=== PATIENT | female | born 1930 | race Caucasian/White ===

== ENCOUNTER 2017-01-31 10:13 | Observation (INO) | payer MEDICARE, BC ==
[2017-01-31] MEDS: Diltiazem IR 60 MG Tab PO SCH ×3 (12:32→23:37)
[2017-01-31] MEDS: Sodium Chloride 0.9% 10 ML Syringe FLUSH PRN ×2 (13:03→21:54)
--- NOTE | 2017-01-31 13:41 | HP ---
CHIEF COMPLAINT: Tongue swelling, she noticed this morning. PAST MEDICAL HISTORY: 1. Diabetes mellitus type 2. 2. Hypothyroidism. 3. Hypertension. 4. Hyperlipidemia. 5. History of aortic stenosis, moderate by echocardiogram last year. Normal LV function. 6. New-onset atrial flutter. TSH, potassium, and magnesium normal. HISTORY OF PRESENT ILLNESS: A very pleasant, 86-year-old female, who I have been seeing in the clinic this week for atrial flutter and trying to get her rate controlled. The patient came in asymptomatic on Sunday and was noted to have a heart rate of 128. EKG was done, which was suggestive of atrial flutter. The patient was hemodynamically stable without shortness of breath. She elected to try to treat this as an outpatient. She was started on Lopressor 12.5 mg b.i.d. She came in this morning complaining of some tongue swelling that she woke up with this morning and some difficulty talking. She has noticed a little bit of swelling in lower extremities. No shortness of breath. No chest pain or tightness. She was using some cough medicine at home, which she did not use before along with a new medication of metoprolol. Her daughter apparently came over this morning and noticed that her speech was different and recommended coming in to have this looked at. CURRENT MEDICATIONS: Nifedipine ER 30 mg daily, metformin 1000 mg b.i.d., Zocor 20 mg daily, lisinopril 2.5 mg daily, levothyroxine 125 mcg daily, metoprolol 12.5 mg b.i.d., aspirin 81 mg daily, calcium with vitamin D 1 tablet b.i.d., omega-3 one capsule b.i.d., vitamin C 250 mg b.i.d., vitamin E 400 units daily. FAMILY HISTORY: Sister of lung cancer. Another sister with pancreatic cancer. SOCIAL HISTORY: She is . No significant alcohol or tobacco use. [place] REVIEW OF SYSTEMS: A 12-point review of systems is negative other than above. PHYSICAL EXAMINATION: GENERAL: A very pleasant female, no apparent distress. Her speech is understandable when I saw her. There was some mild tongue swelling, but no tonsillar swelling or uvula swelling. No adenopathy in the neck. No facial swelling. LUNGS: Clear to auscultation, without wheezes or rales. CARDIAC: Exam reveals a regular heart rate at 125. JVD is not distended. There is 1 to 2+ pedal edema bilaterally, which is new from Sunday. ABDOMEN: Benign. : Exam deferred. NEUROLOGIC: Grossly nonfocal. LABORATORY DATA: From 01/29/2017: Magnesium 2.0. CBC; white count 7.2, hemoglobin 12.9, platelet count 215,000. Sodium 143, potassium 4.2, chloride 105, bicarbonate 27, blood sugar 116, creatinine 0.96, BUN 20. LFTs and calcium were normal. Hemoglobin A1c 5.8. TSH 1.0. EKG revealed, what appears to be an atrial flutter at 126. There is no ST elevation. There are some nonspecific ST-T wave changes, which I think are flutter waves. Intervals are otherwise normal. IMPRESSION: 1. Tongue swelling, question allergy, question if secondary to her cough syrup or metoprolol. 2. Atrial flutter with rapid ventricular response, and now pedal edema. 3. Diabetes mellitus. 4. Hypothyroidism, on replacement. 5. Hypertension. PLAN: Since I am not sure whether or not her tongue swelling is due to metoprolol, I would like to admit her to the hospital for rate control and stopping metoprolol. We will stop her nifedipine and place her on Cardizem regular release 30 mg q.6 hours until heart rate is controlled. Echocardiogram has already been scheduled for today. I do not see a lot of oropharyngeal swelling currently, so we will follow this closely and she will stop her cough medication. We will continue other medications for at home. Anticipate an observation admission. BUBBA/YE
[2017-01-31] MEDS ORDERED: Furosemide 40 MG Tab PO ONE (16:38)
[2017-01-31] MEDS ORDERED: Azithromycin 250 MG Tab PO SCH (16:45)
[2017-01-31] MEDS ORDERED: METOPROLOL TARTRATE 25 MG PO SCH (20:00)
[2017-01-31] MEDS: SIMVASTATIN 20 MG PO SCH (21:51)
[2017-01-31] MEDS: METFORMIN 1000 MG PO SCH (21:51)
[2017-01-31] MEDS ORDERED: Acetaminophen 500 MG Tab PO PRN (23:48)
[2017-02-01] MEDS: Diltiazem IR 60 MG Tab PO SCH ×3 (06:08→18:26)
[2017-02-01] MEDS ORDERED: LEVOTHYROXINE 125 MCG PO SCH (07:00)
[2017-02-01] MEDS ORDERED: LISINOPRIL 2.5 MG PO SCH (08:00)
[2017-02-01] MEDS: METFORMIN 1000 MG PO SCH ×2 (08:00→20:44)
[2017-02-01] MEDS ORDERED: NIFEDIPINE 30 MG PO SCH (08:00)
[2017-02-01] MEDS ORDERED: Azithromycin 250 MG Tab PO SCH (08:30)
--- NOTE | 2017-02-01 09:41 | CR ---
DATE OF SERVICE: 01/31/17 CLINICAL DATA: fever, cough AP CHEST: Comparison is made to a prior exam dated 11/18/15. The heart is enlarged. The aorta is calcified and ectatic. The lungs are clear. No pneumothorax. No pleural effusions. No areas of consolidation. There are surgical clips in the lower neck. No significant changes from the prior exam. IMPRESSION: No evidence of acute intrathoracic disease. [id number] [facility]
[2017-02-01] MEDS ORDERED: Diltiazem IR 60 MG Tab ONE (09:52)
[2017-02-01] MEDS: SIMVASTATIN 20 MG PO SCH (20:44)
[2017-02-01] MEDS: Sodium Chloride 0.9% 10 ML Syringe FLUSH PRN (20:45)
[2017-02-02] MEDS: Diltiazem IR 60 MG Tab PO SCH ×2 (00:48→05:57)
--- NOTE | 2017-02-02 07:33 | PN ---
DATE OF VISIT: 02/01/2017 SUBJECTIVE: The patient denies any complaints this morning. She still does have a mild cough. She denies having any dizziness, lightheadedness, chest pain, or tightness. She tolerated the Cardizem well. Her tongue swelling has now resolved. Otherwise, denies any other complaints. OBJECTIVE: VITAL SIGNS: Blood pressure is 130s systolic over 80s. Pulse rate ranging anywhere from 100 to 130. T-max last night was 100.4, respirations are 16. PHARYNX: Tongue is normal in appearance. No ulcerations. No adenopathy in the neck. LUNGS: Clear to auscultation without wheezes, rales, or rhonchi. CARDIAC: Reveals a rate of 100. I do not hear gallop or rub. JVD is not distended. There is no pedal edema. ABDOMEN: Benign. Monitor shows heart rates running anywhere from 110 to 130 overnight. IMPRESSION: 1. A flutter with rapid ventricular response. 2. Bronchitis. 3. Hypothyroidism. 4. Diabetes mellitus, type 2. 5. Hypertension. PLAN: We will increase Cardizem to 60 mg q.6 hours for better rate control. I am reluctant to restart any metoprolol due to her tongue swelling and the possibility of this being the etiology, although it may be related to her cough syrup. Her tongue swelling has resolved. Waiting for results of echocardiogram. The patient's chest x-ray was normal, and white count is normal. She is on Zithromax for possible bronchitis. Plan is for her to stay overnight and will adjust Cardizem for better heart rate control, and hopefully, echocardiogram will be back in the morning. Anticipate discharge in the morning. BUBBA/YE /[id number]
[2017-02-02] MEDS ORDERED: Diltiazem 240 MG Cap.CD PO SCH ×2 (08:00→08:41)
--- NOTE | 2017-02-02 14:48 | DISCH ---
DISCHARGE DIAGNOSES: 1. Atrial flutter with rapid ventricular response. 2. Tongue swelling, felt secondary to either metoprolol or cough syrup. 3. Diabetes mellitus type 2. 4. Hypothyroidism. 5. Hypertension. 6. Hyperlipidemia. 7. Aortic stenosis, moderate by echocardiogram. PROCEDURE THIS ADMISSION: Echocardiogram. HOSPITAL COURSE: The patient was admitted from the clinic with tongue swelling and new- onset atrial flutter with rapid ventricular response. The patient had been seen in the clinic 2 days earlier and started on metoprolol for her atrial flutter and presented with tongue swelling after taking her metoprolol and also taking some cough syrup. It was not clear which one was the causative agent, but both were stopped and her tongue swelling resolved. The patient was then started on diltiazem for rate control. The patient required 60 mg of regular release Cardizem q.6 hours for rate control while at rest, but her heart rate still went up into the 120s to 130 with activity. The patient was completely asymptomatic. The patient's TSH, potassium, and magnesium were normal. The patient did not have any chest pain or anything to suggest cardiac ischemia. Her EKG did not show any ischemic changes. The patient did have a chest x-ray that was clear, but did have a cough productive of a little bit of sputum, so was empirically placed on Zithromax. The patient did well and was transitioned to Cardizem CD 300 mg daily, and blood pressure was stable. She remained in atrial flutter while hospitalized and it was felt that the etiology for her flutter was most likely a viral upper respiratory syndrome. Echocardiogram was done on admission, which revealed LV function was normal at 50% with no regional wall motion abnormality. She does have an aortic stenosis, which is moderate with a valve gradient of 19 mmHg. Left atrium was normal in size. The patient will be discharged to home with the hope that she will spontaneously convert to normal sinus rhythm. She will follow up with her primary care physician next week with an EKG and if the patient does not convert to normal sinus rhythm, consideration of long-term anticoagulation will need to be undertaken. MEDICATIONS UPON DISCHARGE: Cardizem CD 300 mg daily, Zithromax 250 mg daily for 2 days, metformin a 1000 mg b.i.d., Zocor 20 mg daily, L-thyroxine 125 mcg daily and aspirin 81 mg daily. Vitamin E supplement, calcium supplement, and fish oil supplement. The patient is up ambulating, competent to handle her own affairs and appropriate for discharge home. Follow up with Dr. Mcdonald next week with an EKG. BUBBA/YE /[id number]
[2017-02-02 16:17] VITALS: BP 124/68
[2017-02-03] MEDS ORDERED: DILTIAZEM HCL 300 MG PO SCH (08:00)
== END 2017-02-02 12:00 | disposition home or self-care (01) ==
LOC: LB.DI 10:13 → LB.MS 10:15 → UNDOADMOB 10:15 → LB.MS 10:40
PROVIDERS: ADMIT Internal Medicine; ATTEND Internal Medicine
DX: T50.905A Adverse effect of unspecified drugs, medicaments and biological substances, initial encounter (principal); R22.0 Localized swelling, mass and lump, head; J40 Bronchitis, not specified as acute or chronic; I48.92 Unspecified atrial flutter; E11.9 Type 2 diabetes mellitus without complications; Z79.84 Long term (current) use of oral hypoglycemic drugs; E03.9 Hypothyroidism, unspecified; I10 Essential (primary) hypertension; E78.5 Hyperlipidemia, unspecified; Z79.899 Other long term (current) drug therapy
CPT/HCPCS: 36415; 71010; 80048; 93306; 96374; A9270; G0378; J7050; 99217; 99219; 99224

== ENCOUNTER 2018-06-26 10:11 | Inpatient (IN) | payer MEDICARE, BC ==
[2018-06-26] MEDS ORDERED: metFORMIN 1,000 MG Tab ONE (18:15)
[2018-06-26] MEDS ORDERED: metFORMIN 1,000 MG Tab PO ONE (18:18)
[2018-06-26] MEDS ORDERED: Tuberculin, PPD 5 Units/0.1 ML 1 ML MDV IDERM ONE (20:00)
[2018-06-26] MEDS: Simvastatin 20 MG Tab PO SCH (20:12)
[2018-06-27] MEDS: traMADol 50 MG Tab PO PRN ×3 (00:18→13:23)
[2018-06-27] MEDS: Acetaminophen 500 MG Tab PO PRN ×2 (04:34→21:01)
[2018-06-27] MEDS: Levothyroxine 100 MCG Tab PO SCH (06:59)
[2018-06-27] MEDS ORDERED: LEVOTHYROXINE SODIUM 125 MCG PO SCH (07:00)
[2018-06-27] MEDS ORDERED: Calcium Carbonate/Vitamin D3 600 MG-200 Units Tab PO SCH (08:00)
[2018-06-27] MEDS ORDERED: DILTIAZEM 300 MG PO SCH (08:00)
--- NOTE | 2018-06-27 08:13 | PCM.HP ---
H&P History of Present Illness - General Date of Service: 06/26/18 Admit Problem/Dx: Admission Diagnosis/Problem Admission Diagnosis/Problem "Closed fracture of femur, distal end " Source of Information: Patient, Family - History of Present Illness Initial Comments - Free Text/Narative: This is a 87yo F here for swing bed admission secondary to a left hip fracture repair from [facility]. Patient denies any current complaints and has been increasingly mobile with a walker at this point. She denies any pain and is sensitive to narcotics as she slept 12 hours from one dose of hydrocodone. Daughters are present at bedside. Location: Reports: Lower Extremity, Left Improves with: Reports: None Worsens with: Reports: None Associated Symptoms: Reports: No Other Symptoms Left Hip Pain Score (Numeric/FACES): 2 - Related Data Allergies/Adverse Reactions: Allergies Allergy/AdvReac Type Severity Reaction Status Date / Time No Known Allergies Allergy Verified 06/26/18 15:46 Home Medications: Home Meds Ascorbic Acid [Vitamin C] 250 mg PO DAILY 06/11/15 [History] Calcium Carbonate/Vitamin D3 [Calcium 600 + D Tablet] 1 each PO DAILY 06/11/15 [ History] Levothyroxine Sodium 125 mcg PO ACBREAKFAST 06/11/15 [History] Simvastatin 20 mg PO BEDTIME 06/11/15 [History] metFORMIN [Glucophage] 1,000 mg PO BIDMEALS 06/11/15 [History] Vitamin E 400 unit PO DAILY 01/31/17 [History] Diltiazem [Cardizem CD] 300 mg PO DAILY #30 cap.cd 02/02/17 [Rx] Acetaminophen [Tylenol Extra Strength] 1,000 mg PO TID PRN 06/26/18 [History] Aspirin [Ecotrin] 325 mg PO DAILY 06/26/18 [History] Hydrocodone/Acetaminophen [Hydrocodon-Acetaminophen 5-325] 1 each PO Q6HR PRN [History] Levothyroxine 75 mcg PO ACBREAKFAST 06/26/18 [History] Lisinopril 2.5 mg PO DAILY 06/26/18 [History] traMADol [Ultram] 25 - 50 mg PO Q6H PRN 06/26/18 [History] Past Medical History HEENT History: Reports: Cataract, Impaired Vision Cardiovascular History: Reports: Afib, High Cholesterol, Hypertension Genitourinary History: Reports: None [employer] History: Reports: Other OB/BYN History: Hysterectomy Musculoskeletal History: Reports: Fracture Endocrine/Metabolic History: Reports: Diabetes, Type II, Hypothyroidism - Infectious Disease History Infectious Disease History: Reports: Chicken Pox, Measles, Mumps - Past Surgical History Cardiovascular Surgical History: Reports: None Female Surgical History: Reports: Hysterectomy Musculoskeletal Surgical History: Reports: Other (See Below) Other Musculoskeletal Surgeries/Procedures:: left hip pinning Social & Family History - Family History Family Medical History: Noncontributory - Tobacco Use Smoking Status *Q: Never Smoker - Recreational Drug Use Recreational Drug Use: No H&P Review of Systems - Review of Systems: Review Of Systems: ROS reveals no pertinent complaints other than HPI. Exam - Exam Exam: See Below - Vital Signs Vital Signs: Last Vital Signs Temp 36.6 C 06/26/18 20:00 Pulse 92 06/26/18 20:00 Resp 16 06/26/18 20:00 BP 113/68 06/26/18 20:00 Pulse Ox 96 06/26/18 20:00 Weight: 69.218 kg - Exam General: Alert, Oriented, Cooperative HEENT: PERRLA, Conjunctiva Clear, EACs Clear, EOMI Neck: Supple, Trachea Midline Lungs: Clear to Auscultation, Normal Respiratory Effort Cardiovascular: Regular Rate, Regular Rhythm GI/Abdominal Exam: Normal Bowel Sounds Back Exam: Normal Inspection Extremities: Normal Inspection Skin: Wound, Incision (healing well) Neurological: Cranial Nerves Intact - Patient Data Lab Results Last 24 hrs: Laboratory Results - last 24 hr 06/27/18 Range/Units 06:24 POC Glucose 132 H (74-110) mg/dL - Problem List (1) S/p left hip fracture SNOMED Code(s): 882846851 ICD Code: Z87.81 - PERSONAL HISTORY OF (HEALED) TRAUMATIC FRACTURE Status: Acute Priority: High Current Visit: Yes (2) Weakness SNOMED Code(s): 07039049 ICD Code: R53.1 - WEAKNESS Status: Acute Priority: High Current Visit: Yes (3) Pain management SNOMED Code(s): 010762623 ICD Code: R52 - PAIN, UNSPECIFIED Status: Acute Priority: High Current Visit: Yes Problem List Initiated/Reviewed/Updated: Yes Orders Last 24hrs: Active Orders 24 hr Category Date Time Status Admission Status [Patient Status] [ADT] Routine ADT 06/26/18 16:40 Active Wound Care [RC] ASDIRECTED Care 06/30/18 10:00 Active Consistent Carbohydrate Diet [DIET] Diet 06/27/18 Breakfast Ordered Acetaminophen [Tylenol Extra Strength] Med 06/26/18 18:54 Active 1,000 mg PO TID PRN Ascorbic Acid [Vitamin C] Med 06/27/18 08:00 Active 250 mg PO DAILY Aspirin [Ecotrin] Med 06/27/18 08:00 Active 325 mg PO DAILY Calcium Carbonate/Vitamin D3 [Calcium Carbonate/Vitamin Med 06/27/18 08:00 Active D 600 MG-200 Unit] 1 tab PO DAILY Diltiazem [Cardizem CD] Med 06/27/18 08:00 Active 120 mg PO DAILY Diltiazem [Cardizem CD] Med 06/27/18 08:00 Active 180 mg PO DAILY Docusate Sodium/Sennosides [Senna Plus] Med 06/27/18 20:00 Active 1 tab PO BEDTIME Levothyroxine [Synthroid] Med 06/27/18 07:00 Active 200 mcg PO ACBREAKFAST Lisinopril [Prinivil] Med 06/27/18 08:00 Active 2.5 mg PO DAILY Polyethylene Glycol 3350 [MiraLAX] Med 06/27/18 08:00 Active 17 gm PO DAILY Simvastatin [Zocor] Med 06/26/18 20:00 Active 20 mg PO BEDTIME Vitamin E Med 06/27/18 08:00 Active 400 units PO DAILY metFORMIN [Glucophage] Med 06/27/18 08:00 Active 1,000 mg PO BIDMEALS traMADol [Ultram] Med 06/26/18 18:54 Active 25 - 50 mg PO Q6H PRN Medication Orders Acetaminophen (Tylenol Extra Strength) 1,000 mg PO TID PRN PRN Reason: Pain Last Admin: 06/27/18 04:34 Dose: 1,000 mg Ascorbic Acid (Vitamin C) 250 mg PO DAILY [facility] Aspirin (Ecotrin) 325 mg PO DAILY [facility] Stop: 07/23/18 08:01 Calcium Carbonate (Calcium Carbonate/Vitamin D 600 Mg-200 Unit) 1 tab PO DAILY [facility] Diltiazem HCl (Cardizem Cd) 120 mg PO DAILY [facility] Diltiazem HCl (Cardizem Cd) 180 mg PO DAILY COUNT INCLUDES THE [facility] Levothyroxine Sodium (Synthroid) 200 mcg PO ACBREAKFAST COUNT INCLUDES THE [facility] Last Admin: 06/27/18 06:59 Dose: 200 mcg Lisinopril (Prinivil) 2.5 mg PO DAILY COUNT INCLUDES THE [facility] Metformin HCl (Glucophage) 1,000 mg PO BIDMEALS COUNT INCLUDES THE [facility] Polyethylene Glycol (Miralax) 17 gm PO DAILY COUNT INCLUDES THE [facility] Senna/Docusate Sodium (Senna Plus) 1 tab PO BEDTIME COUNT INCLUDES THE [facility] Simvastatin (Zocor) 20 mg PO BEDTIME COUNT INCLUDES THE [facility] Last Admin: 06/26/18 20:12 Dose: 20 mg Tramadol HCl (Ultram) 25 - 50 mg PO Q6H PRN PRN Reason: Pain Last Admin: 06/27/18 06:27 Dose: 50 mg Admin: 06/27/18 00:18 Dose: 50 mg Vitamin E (Vitamin E) 400 units PO DAILY COUNT INCLUDES THE [facility] Assessment/Plan Comment:: Patient will continue rehabilitation with PT/OT services. We will continue monitoring pain and continue current management holding hydrocodone at this time and continue with Tramadol. Continue f/u with Orthopedics as scheduled.
[2018-06-27] MEDS: Diltiazem 120 MG Cap.CD PO SCH (08:18)
[2018-06-27] MEDS: Aspirin 325 MG Tab.EC PO SCH (08:19)
[2018-06-27] MEDS: Diltiazem 180 MG Cap.CD PO SCH (08:19)
[2018-06-27] MEDS: metFORMIN 1,000 MG Tab PO SCH ×2 (08:19→17:51)
[2018-06-27] MEDS: Lisinopril 2.5 MG Tab PO SCH (08:20)
[2018-06-27] MEDS: Ascorbic Acid 500 MG Tab PO SCH (08:20)
[2018-06-27] MEDS: Polyethylene Glycol 3350 Powder 17 GM Packet PO SCH (08:21)
[2018-06-27] MEDS: VITAMIN E 100 UNIT PO SCH (13:14)
[2018-06-27] MEDS ORDERED: metFORMIN 1,000 MG Tab PO ONE (18:18)
[2018-06-27] MEDS: Simvastatin 20 MG Tab PO SCH (19:48)
[2018-06-28] MEDS: traMADol 50 MG Tab PO PRN ×2 (02:52→19:40)
[2018-06-28] MEDS: Levothyroxine 100 MCG Tab PO SCH (07:59)
[2018-06-28] MEDS: Calcium Carbonate/Vitamin D3 1500 MG-400 Units Tab PO SCH (08:00)
[2018-06-28] MEDS: Diltiazem 120 MG Cap.CD PO SCH (08:00)
[2018-06-28] MEDS: Diltiazem 180 MG Cap.CD PO SCH (08:01)
[2018-06-28] MEDS: metFORMIN 1,000 MG Tab PO SCH ×2 (08:02→17:12)
[2018-06-28] MEDS: Aspirin 325 MG Tab.EC PO SCH (08:02)
[2018-06-28] MEDS: Lisinopril 2.5 MG Tab PO SCH (08:03)
[2018-06-28] MEDS: VITAMIN E 100 UNIT PO SCH (08:04)
[2018-06-28] MEDS: Ascorbic Acid 500 MG Tab PO SCH (08:04)
[2018-06-28] MEDS: Polyethylene Glycol 3350 Powder 17 GM Packet PO SCH (08:05)
[2018-06-28] MEDS ORDERED: Calcium Carbonate 500 MG Tab.Chew ONE (09:19)
[2018-06-28] MEDS: Simvastatin 20 MG Tab PO SCH (19:40)
[2018-06-29] MEDS: traMADol 50 MG Tab PO PRN ×3 (02:29→20:22)
[2018-06-29] MEDS: Acetaminophen 500 MG Tab PO PRN ×3 (03:18→20:22)
[2018-06-29] MEDS: Calcium Carbonate/Vitamin D3 1500 MG-400 Units Tab PO SCH (08:38)
[2018-06-29] MEDS: Ascorbic Acid 500 MG Tab PO SCH (08:38)
[2018-06-29] MEDS: Lisinopril 2.5 MG Tab PO SCH (08:39)
[2018-06-29] MEDS: Levothyroxine 100 MCG Tab PO SCH (08:40)
[2018-06-29] MEDS: Diltiazem 120 MG Cap.CD PO SCH (08:40)
[2018-06-29] MEDS: metFORMIN 1,000 MG Tab PO SCH ×2 (08:40→16:29)
[2018-06-29] MEDS: Diltiazem 180 MG Cap.CD PO SCH (08:40)
[2018-06-29] MEDS: Aspirin 325 MG Tab.EC PO SCH (08:40)
[2018-06-29] MEDS: Polyethylene Glycol 3350 Powder 17 GM Packet PO SCH (08:49)
[2018-06-29] MEDS: VITAMIN E 100 UNIT PO SCH (08:49)
[2018-06-29] MEDS: Simvastatin 20 MG Tab PO SCH (20:21)
[2018-06-30] MEDS: Levothyroxine 100 MCG Tab PO SCH (06:43)
[2018-06-30] MEDS: metFORMIN 1,000 MG Tab PO SCH ×2 (07:32→17:20)
[2018-06-30] MEDS: Aspirin 325 MG Tab.EC PO SCH (07:33)
[2018-06-30] MEDS: Diltiazem 120 MG Cap.CD PO SCH (07:33)
[2018-06-30] MEDS: Diltiazem 180 MG Cap.CD PO SCH (07:34)
[2018-06-30] MEDS: Lisinopril 2.5 MG Tab PO SCH (07:34)
[2018-06-30] MEDS: Ascorbic Acid 500 MG Tab PO SCH (07:35)
[2018-06-30] MEDS: VITAMIN E 100 UNIT PO SCH (07:37)
[2018-06-30] MEDS: Polyethylene Glycol 3350 Powder 17 GM Packet PO SCH (07:43)
[2018-06-30] MEDS: Acetaminophen 500 MG Tab PO PRN ×2 (07:43→20:26)
[2018-06-30] MEDS: traMADol 50 MG Tab PO PRN ×2 (07:44→20:27)
[2018-06-30] MEDS: Calcium Carbonate/Vitamin D3 1500 MG-400 Units Tab PO SCH (07:44)
[2018-06-30] MEDS: Simvastatin 20 MG Tab PO SCH (20:29)
[2018-07-01] MEDS: Diltiazem 180 MG Cap.CD PO SCH (08:47)
[2018-07-01] MEDS: Lisinopril 2.5 MG Tab PO SCH (08:47)
[2018-07-01] MEDS: traMADol 50 MG Tab PO PRN ×3 (08:47→20:13)
[2018-07-01] MEDS: VITAMIN E 100 UNIT PO SCH (08:48)
[2018-07-01] MEDS: Polyethylene Glycol 3350 Powder 17 GM Packet PO SCH (08:48)
[2018-07-01] MEDS: Aspirin 325 MG Tab.EC PO SCH (08:48)
[2018-07-01] MEDS: Ascorbic Acid 500 MG Tab PO SCH (08:48)
[2018-07-01] MEDS: Diltiazem 120 MG Cap.CD PO SCH (08:48)
[2018-07-01] MEDS: Calcium Carbonate/Vitamin D3 1500 MG-400 Units Tab PO SCH (08:48)
[2018-07-01] MEDS: metFORMIN 1,000 MG Tab PO SCH ×2 (08:48→21:25)
--- NOTE | 2018-07-01 17:14 | PCM.PN ---
- General Info Date of Service: 07/01/18 Functional Status: Reports: Pain Controlled, Tolerating Diet, Ambulating - Review of Systems General: Reports: Weakness HEENT: Reports: No Symptoms Pulmonary: Reports: No Symptoms Cardiovascular: Reports: No Symptoms Gastrointestinal: Reports: No Symptoms Genitourinary: Reports: No Symptoms Musculoskeletal: Reports: Joint Pain Neurological: Reports: No Symptoms Psychiatric: Reports: No Symptoms - Patient Data Vitals - Most Recent: Last Vital Signs Temp 36.2 C 06/29/18 08:00 Pulse 122 H 07/01/18 08:48 Resp 16 07/01/18 08:00 BP 140/86 07/01/18 08:48 Pulse Ox 98 07/01/18 08:00 Weight - Most Recent: 69.218 kg Lab Results Last 24 Hours: Laboratory Results - last 24 hr 06/30/18 07/01/18 07/01/18 Range/Units 16:19 06:37 10:45 POC Glucose 173 H 155 H 139 H (74-110) mg/dL 07/01/18 Range/Units 17:02 POC Glucose 102 (74-110) mg/dL Med Orders - Current: Current Medications Acetaminophen (Tylenol Extra Strength) 1,000 mg PO TID PRN PRN Reason: Pain Last Admin: 06/30/18 20:26 Dose: 1,000 mg Ascorbic Acid (Vitamin C) 250 mg PO DAILY [facility] Last Admin: 07/01/18 08:48 Dose: 250 mg Aspirin (Ecotrin) 325 mg PO DAILY [facility] Stop: 07/23/18 08:01 Last Admin: 07/01/18 08:48 Dose: 325 mg Calcium Carbonate (Caltrate 600+D 1500 Mg-400 Units) 1 tab PO DAILY [facility] Last Admin: 07/01/18 08:48 Dose: 1 tab Diltiazem HCl (Cardizem Cd) 120 mg PO DAILY [facility] Last Admin: 07/01/18 08:48 Dose: 120 mg Diltiazem HCl (Cardizem Cd) 180 mg PO DAILY [facility] Last Admin: 07/01/18 08:47 Dose: 180 mg Levothyroxine Sodium (Synthroid) 200 mcg PO ACBREAKFAST [facility] Last Admin: 06/30/18 06:43 Dose: 200 mcg Lisinopril (Prinivil) 2.5 mg PO DAILY [facility] Last Admin: 07/01/18 08:47 Dose: 2.5 mg Metformin HCl (Glucophage) 1,000 mg PO BIDMEALS [facility] Last Admin: 07/01/18 08:48 Dose: 1,000 mg Polyethylene Glycol (Miralax) 17 gm PO DAILY [facility] Last Admin: 07/01/18 08:48 Dose: Not Given Senna/Docusate Sodium (Senna Plus) 1 tab PO BEDTIME [facility] Last Admin: 06/30/18 20:00 Dose: Not Given Simvastatin (Zocor) 20 mg PO BEDTIME [facility] Last Admin: 06/30/18 20:29 Dose: 20 mg Tramadol HCl (Ultram) 25 - 50 mg PO Q6H PRN PRN Reason: Pain Last Admin: 07/01/18 14:51 Dose: 50 mg Vitamin E (Vitamin E) 400 units PO DAILY [facility] Last Admin: 07/01/18 08:48 Dose: 400 units Discontinued Medications Calcium Carbonate (Calcium Carbonate/Vitamin D 600 Mg-200 Unit) 1 tab PO DAILY [facility] Last Admin: 06/27/18 13:14 Dose: Not Given Calcium Carbonate/Glycine (Tums) Confirm Administered Dose 1,000 mg .ROUTE .STK- MED ONE Stop: 06/28/18 09:20 Last Admin: 06/28/18 20:13 Dose: Not Given Metformin HCl (Glucophage) Confirm Administered Dose 1,000 mg .ROUTE .STK-MED ONE Stop: 06/26/18 18:16 Last Admin: 06/26/18 18:34 Dose: Not Given Metformin HCl (Glucophage) 1,000 mg PO ONETIME ONE Stop: 06/26/18 18:19 Last Admin: 06/26/18 18:19 Dose: 1,000 mg Tuberculin PPD (Aplisol) 5 unit IDERM ONETIME ONE Stop: 06/26/18 20:01 Last Admin: 06/26/18 20:06 Dose: 5 unit - Exam General: Alert, Oriented, Cooperative HEENT: Pupils Equal, Pupils Reactive, EOMI Neck: Supple Lungs: Clear to Auscultation, Normal Respiratory Effort Cardiovascular: Regular Rate, Regular Rhythm Extremities: Normal Inspection Skin: Warm, Dry, Intact Wound/Incisions: Healing Well Neurological: No New Focal Deficit - Problem List & Annotations (1) S/p left hip fracture SNOMED Code(s): 220861477 Code(s): Z87.81 - PERSONAL HISTORY OF (HEALED) TRAUMATIC FRACTURE Status: Acute Priority: High Current Visit: Yes (2) Weakness SNOMED Code(s): 17778875 Code(s): R53.1 - WEAKNESS Status: Acute Priority: High Current Visit: Yes (3) Pain management SNOMED Code(s): 462204027 Code(s): R52 - PAIN, UNSPECIFIED Status: Acute Priority: High Current Visit: Yes - Problem List Review Problem List Initiated/Reviewed/Updated: Yes - My Orders Last 24 Hours: My Active Orders 07/01/18 17:06 TSH ULTRASENSITIVE [CHEM] Routine - Plan Plan:: Patient will continue rehabilitation with PT/OT services. We will continue monitoring pain and continue current management holding hydrocodone at this time and continue with Tramadol. Continue f/u with Orthopedics as scheduled. 07/01/18 Patient has been doing well with PT/OT. We will continue monitoring pain management and f/u PT/OT. No other changes. Labs ordered.
[2018-07-01] MEDS: Simvastatin 20 MG Tab PO SCH (20:12)
[2018-07-02] MEDS: Levothyroxine 25 MCG Tab PO SCH (06:49)
[2018-07-02] MEDS: Levothyroxine 100 MCG Tab PO SCH ×2 (06:49→11:10)
[2018-07-02] MEDS: Acetaminophen 500 MG Tab PO PRN (07:53)
[2018-07-02] MEDS: Calcium Carbonate/Vitamin D3 1500 MG-400 Units Tab PO SCH (07:54)
[2018-07-02] MEDS: Diltiazem 180 MG Cap.CD PO SCH (07:54)
[2018-07-02] MEDS: Lisinopril 2.5 MG Tab PO SCH (07:54)
[2018-07-02] MEDS: metFORMIN 1,000 MG Tab PO SCH ×2 (07:55→17:13)
[2018-07-02] MEDS: Diltiazem 120 MG Cap.CD PO SCH (07:55)
[2018-07-02] MEDS: VITAMIN E 100 UNIT PO SCH (07:55)
[2018-07-02] MEDS: Ascorbic Acid 500 MG Tab PO SCH (07:55)
[2018-07-02] MEDS: Aspirin 325 MG Tab.EC PO SCH (07:55)
[2018-07-02] MEDS: Polyethylene Glycol 3350 Powder 17 GM Packet PO SCH (07:55)
[2018-07-02] MEDS: Simvastatin 20 MG Tab PO SCH (19:17)
[2018-07-02] MEDS: traMADol 50 MG Tab PO PRN (19:21)
[2018-07-03] MEDS: Diltiazem 180 MG Cap.CD PO SCH (07:47)
[2018-07-03] MEDS: metFORMIN 1,000 MG Tab PO SCH ×2 (07:48→17:22)
[2018-07-03] MEDS: Aspirin 325 MG Tab.EC PO SCH (07:48)
[2018-07-03] MEDS: Calcium Carbonate/Vitamin D3 1500 MG-400 Units Tab PO SCH (07:48)
[2018-07-03] MEDS: Levothyroxine 25 MCG Tab PO SCH (07:48)
[2018-07-03] MEDS: Ascorbic Acid 500 MG Tab PO SCH (07:49)
[2018-07-03] MEDS: Lisinopril 2.5 MG Tab PO SCH (07:49)
[2018-07-03] MEDS: Levothyroxine 100 MCG Tab PO SCH (07:50)
[2018-07-03] MEDS: Polyethylene Glycol 3350 Powder 17 GM Packet PO SCH (07:50)
[2018-07-03] MEDS: VITAMIN E 100 UNIT PO SCH (08:20)
[2018-07-03] MEDS: traMADol 50 MG Tab PO PRN ×2 (12:49→19:28)
[2018-07-03] MEDS: Simvastatin 20 MG Tab PO SCH (19:27)
[2018-07-04] MEDS: traMADol 50 MG Tab PO PRN ×2 (04:50→20:53)
[2018-07-04] MEDS: Levothyroxine 100 MCG Tab PO SCH (06:09)
[2018-07-04] MEDS: Levothyroxine 25 MCG Tab PO SCH (06:09)
[2018-07-04] MEDS: metFORMIN 1,000 MG Tab PO SCH ×2 (07:47→20:56)
[2018-07-04] MEDS: Aspirin 325 MG Tab.EC PO SCH (07:47)
[2018-07-04] MEDS: Lisinopril 2.5 MG Tab PO SCH (07:48)
[2018-07-04] MEDS: Ascorbic Acid 500 MG Tab PO SCH (07:48)
[2018-07-04] MEDS: Calcium Carbonate/Vitamin D3 1500 MG-400 Units Tab PO SCH (07:48)
[2018-07-04] MEDS: Diltiazem 180 MG Cap.CD PO SCH (07:49)
[2018-07-04] MEDS: VITAMIN E 100 UNIT PO SCH (07:51)
[2018-07-04] MEDS: Polyethylene Glycol 3350 Powder 17 GM Packet PO SCH (09:50)
[2018-07-04] MEDS: Simvastatin 20 MG Tab PO SCH (20:50)
[2018-07-05] MEDS ORDERED: Levothyroxine 100 MCG Tab ONE (06:09)
[2018-07-05] MEDS: Levothyroxine 100 MCG Tab PO SCH (06:14)
[2018-07-05] MEDS: Levothyroxine 25 MCG Tab PO SCH (06:14)
[2018-07-05] MEDS: Ascorbic Acid 500 MG Tab PO SCH (07:48)
[2018-07-05] MEDS: Diltiazem 180 MG Cap.CD PO SCH (07:48)
[2018-07-05] MEDS: metFORMIN 1,000 MG Tab PO SCH ×2 (07:50→17:30)
[2018-07-05] MEDS: Calcium Carbonate/Vitamin D3 1500 MG-400 Units Tab PO SCH (07:50)
[2018-07-05] MEDS: Aspirin 325 MG Tab.EC PO SCH (07:50)
[2018-07-05] MEDS: VITAMIN E 100 UNIT PO SCH (07:51)
[2018-07-05] MEDS: Polyethylene Glycol 3350 Powder 17 GM Packet PO SCH (07:51)
[2018-07-05] MEDS: Lisinopril 2.5 MG Tab PO SCH (07:51)
[2018-07-05] MEDS: Simvastatin 20 MG Tab PO SCH (20:22)
[2018-07-05] MEDS: Acetaminophen 500 MG Tab PO PRN (20:27)
[2018-07-06] MEDS: Levothyroxine 100 MCG Tab PO SCH (06:42)
[2018-07-06] MEDS: Levothyroxine 25 MCG Tab PO SCH (06:42)
[2018-07-06] MEDS: Calcium Carbonate/Vitamin D3 1500 MG-400 Units Tab PO SCH (08:30)
[2018-07-06] MEDS: Diltiazem 180 MG Cap.CD PO SCH (08:30)
[2018-07-06] MEDS: Ascorbic Acid 500 MG Tab PO SCH (08:30)
[2018-07-06] MEDS: Lisinopril 2.5 MG Tab PO SCH (08:30)
[2018-07-06] MEDS: metFORMIN 1,000 MG Tab PO SCH ×2 (08:30→17:25)
[2018-07-06] MEDS: Aspirin 325 MG Tab.EC PO SCH (08:30)
[2018-07-06] MEDS: Polyethylene Glycol 3350 Powder 17 GM Packet PO SCH (18:46)
[2018-07-06] MEDS: VITAMIN E 100 UNIT PO SCH (18:46)
[2018-07-06] MEDS: Simvastatin 20 MG Tab PO SCH (19:53)
[2018-07-06] MEDS: Acetaminophen 500 MG Tab PO PRN (19:54)
[2018-07-07] MEDS: Levothyroxine 25 MCG Tab PO SCH (06:32)
[2018-07-07] MEDS: Levothyroxine 100 MCG Tab PO SCH (06:33)
[2018-07-07] MEDS: Diltiazem 180 MG Cap.CD PO SCH (07:38)
[2018-07-07] MEDS: Ascorbic Acid 500 MG Tab PO SCH (07:38)
[2018-07-07] MEDS: Aspirin 325 MG Tab.EC PO SCH (07:38)
[2018-07-07] MEDS: Calcium Carbonate/Vitamin D3 1500 MG-400 Units Tab PO SCH (07:39)
[2018-07-07] MEDS: Lisinopril 2.5 MG Tab PO SCH (07:39)
[2018-07-07] MEDS: Polyethylene Glycol 3350 Powder 17 GM Packet PO SCH (07:40)
[2018-07-07] MEDS: traMADol 50 MG Tab PO PRN (07:40)
[2018-07-07] MEDS: VITAMIN E 100 UNIT PO SCH (07:40)
[2018-07-07] MEDS: metFORMIN 1,000 MG Tab PO SCH ×2 (07:40→19:04)
[2018-07-07] MEDS: traZODone 50 MG Tab PO PRN (20:04)
[2018-07-07] MEDS: Simvastatin 20 MG Tab PO SCH (20:04)
[2018-07-08] MEDS: Levothyroxine 25 MCG Tab PO SCH (06:31)
[2018-07-08] MEDS: Levothyroxine 100 MCG Tab PO SCH (06:31)
[2018-07-08] MEDS: Calcium Carbonate/Vitamin D3 1500 MG-400 Units Tab PO SCH (07:26)
[2018-07-08] MEDS: metFORMIN 1,000 MG Tab PO SCH ×2 (07:26→17:38)
[2018-07-08] MEDS: Ascorbic Acid 500 MG Tab PO SCH (07:27)
[2018-07-08] MEDS: Aspirin 325 MG Tab.EC PO SCH (07:28)
[2018-07-08] MEDS: Polyethylene Glycol 3350 Powder 17 GM Packet PO SCH (07:28)
[2018-07-08] MEDS: Diltiazem 180 MG Cap.CD PO SCH (07:33)
[2018-07-08] MEDS: Lisinopril 2.5 MG Tab PO SCH (07:33)
[2018-07-08] MEDS: VITAMIN E 100 UNIT PO SCH ×3 (07:33→20:03)
--- NOTE | 2018-07-08 17:08 | PCM.PN ---
- General Info Date of Service: 07/08/18 - Patient Data Vitals - Most Recent: Last Vital Signs Temp 37.0 C 07/08/18 10:00 Pulse 120 H 07/08/18 10:00 Resp 18 07/08/18 10:00 BP 118/68 07/08/18 10:00 Pulse Ox 98 07/08/18 10:00 Weight - Most Recent: 64.138 kg Lab Results Last 24 Hours: Laboratory Results - last 24 hr 07/08/18 Range/Units 06:42 POC Glucose 134 H (74-110) mg/dL Med Orders - Current: Current Medications Acetaminophen (Tylenol Extra Strength) 1,000 mg PO TID PRN PRN Reason: Pain Last Admin: 07/06/18 19:54 Dose: 1,000 mg Ascorbic Acid (Vitamin C) 250 mg PO DAILY [facility] Last Admin: 07/08/18 07:27 Dose: 250 mg Aspirin (Ecotrin) 325 mg PO DAILY [facility] Stop: 07/23/18 08:01 Last Admin: 07/08/18 07:28 Dose: 325 mg Calcium Carbonate (Caltrate 600+D 1500 Mg-400 Units) 1 tab PO DAILY [facility] Last Admin: 07/08/18 07:26 Dose: 1 tab Diltiazem HCl (Cardizem Cd) 360 mg PO DAILY [facility] Last Admin: 07/08/18 07:33 Dose: 360 mg Levothyroxine Sodium (Synthroid) 200 mcg PO ACBREAKFAST [facility] Last Admin: 07/08/18 06:31 Dose: 200 mcg Levothyroxine Sodium (Levothyroxine) 25 mcg PO ACBREAKFAST [facility] Last Admin: 07/08/18 06:31 Dose: 25 mcg Lisinopril (Prinivil) 2.5 mg PO DAILY [facility] Last Admin: 07/08/18 07:33 Dose: 2.5 mg Metformin HCl (Glucophage) 1,000 mg PO BIDMEALS [facility] Last Admin: 07/08/18 07:26 Dose: 1,000 mg Polyethylene Glycol (Miralax) 17 gm PO DAILY [facility] Last Admin: 07/08/18 07:28 Dose: Not Given Senna/Docusate Sodium (Senna Plus) 1 tab PO BEDTIME [facility] Last Admin: 07/07/18 20:04 Dose: 1 tab Simvastatin (Zocor) 20 mg PO BEDTIME [facility] Last Admin: 07/07/18 20:04 Dose: 20 mg Tramadol HCl (Ultram) 50 - 100 mg PO Q6H PRN PRN Reason: Pain Last Admin: 07/07/18 07:40 Dose: 50 mg Trazodone HCl (Trazodone) 50 mg PO BEDTIME PRN PRN Reason: Sleep Last Admin: 07/07/18 20:04 Dose: 50 mg Vitamin E (Vitamin E) 400 units PO TID HUBERT Discontinued Medications Calcium Carbonate (Calcium Carbonate/Vitamin D 600 Mg-200 Unit) 1 tab PO DAILY [facility] Last Admin: 06/27/18 13:14 Dose: Not Given Calcium Carbonate/Glycine (Tums) Confirm Administered Dose 1,000 mg .ROUTE .STK- MED ONE Stop: 06/28/18 09:20 Last Admin: 06/28/18 20:13 Dose: Not Given Diltiazem HCl (Cardizem Cd) 120 mg PO DAILY [facility] Last Admin: 07/02/18 07:55 Dose: 120 mg Diltiazem HCl (Cardizem Cd) 180 mg PO DAILY [facility] Last Admin: 07/02/18 07:54 Dose: 180 mg Levothyroxine Sodium (Synthroid) 200 mcg PO ACBREAKFAST [facility] Last Admin: 07/02/18 11:10 Dose: Not Given Levothyroxine Sodium (Synthroid) Confirm Administered Dose 200 mcg .ROUTE .STK- MED ONE Stop: 07/05/18 06:10 Last Admin: 07/05/18 06:11 Dose: Not Given Metformin HCl (Glucophage) Confirm Administered Dose 1,000 mg .ROUTE .STK-MED ONE Stop: 06/26/18 18:16 Last Admin: 06/26/18 18:34 Dose: Not Given Metformin HCl (Glucophage) 1,000 mg PO ONETIME ONE Stop: 06/26/18 18:19 Last Admin: 06/26/18 18:19 Dose: 1,000 mg Tramadol HCl (Ultram) 25 - 50 mg PO Q6H PRN PRN Reason: Pain Last Admin: 07/01/18 14:51 Dose: 50 mg Tuberculin PPD (Aplisol) 5 unit IDERM ONETIME ONE Stop: 06/26/18 20:01 Last Admin: 06/26/18 20:06 Dose: 5 unit Vitamin E (Vitamin E) 400 units PO DAILY [facility] Last Admin: 07/08/18 07:33 Dose: 400 units - Problem List & Annotations (1) S/p left hip fracture SNOMED Code(s): 752833771 Code(s): Z87.81 - PERSONAL HISTORY OF (HEALED) TRAUMATIC FRACTURE Status: Acute Priority: High Current Visit: Yes (2) Weakness SNOMED Code(s): 90615504 Code(s): R53.1 - WEAKNESS Status: Acute Priority: High Current Visit: Yes (3) Pain management SNOMED Code(s): 084286629 Code(s): R52 - PAIN, UNSPECIFIED Status: Acute Priority: High Current Visit: Yes - My Orders Last 24 Hours: My Active Orders 07/08/18 08:00 Blood Glucose Check, Bedside [RC] DAILY 07/08/18 20:00 Vitamin E 400 units PO TID 07/09/18 14:15 Hip Min 1V Lt [CR] Routine Hip Min 1V w Pelvis Lt [CR] Routine 07/15/18 08:00 TSH ULTRASENSITIVE [CHEM] Routine - Plan Plan:: Patient will continue rehabilitation with PT/OT services. We will continue monitoring pain and continue current management holding hydrocodone at this time and continue with Tramadol. Continue f/u with Orthopedics as scheduled. 07/01/18 Patient has been doing well with PT/OT. We will continue monitoring pain management and f/u PT/OT. No other changes. Labs ordered.
[2018-07-08] MEDS: Simvastatin 20 MG Tab PO SCH (20:02)
[2018-07-08] MEDS: traZODone 50 MG Tab PO PRN (20:05)
[2018-07-09] MEDS: Levothyroxine 25 MCG Tab PO SCH (06:32)
[2018-07-09] MEDS: Levothyroxine 100 MCG Tab PO SCH (06:33)
[2018-07-09] MEDS: Diltiazem 180 MG Cap.CD PO SCH (07:50)
[2018-07-09] MEDS: Calcium Carbonate/Vitamin D3 1500 MG-400 Units Tab PO SCH (07:50)
[2018-07-09] MEDS: Lisinopril 2.5 MG Tab PO SCH (07:52)
[2018-07-09] MEDS: metFORMIN 1,000 MG Tab PO SCH ×2 (07:52→17:33)
[2018-07-09] MEDS: Ascorbic Acid 500 MG Tab PO SCH (07:52)
[2018-07-09] MEDS: Aspirin 325 MG Tab.EC PO SCH (07:52)
[2018-07-09] MEDS: Polyethylene Glycol 3350 Powder 17 GM Packet PO SCH (07:52)
[2018-07-09] MEDS: VITAMIN E 100 UNIT PO SCH ×4 (07:53→19:50)
--- OUTSIDE RECORDS SUMMARY | 2018-07-09 14:49 | XMSREPORT | Summary of Care ---
:1930 Author Organization [facility] [employer] [facility] Address [address] [place] [address] Phone Care Team Providers Name Role Phone Provider, No Attributed RESOURCE Attributed Provider Unavailable Quo, Charanjit VALLES Primary Care Provider Reason for Visit Auth/Cert Status Reason Specialty Diagnoses / Procedures Referred By Contact Referred To Contact Encounter Details Date Type Department Care Team Description 06/22/2018 - Hospital Encounter [place] Braxton Waldron MD [address] [place], [place] [id number] Hip fracture 06/26/2018 [facility], [address] [place], [place] [id number] requiring operative Surg Unit repair, left, [address] [facility] closed, [place] [address] encounter [phone] Allergies No Known Allergiesas of this encounter Medications Prescription Sig. Disp. Refills Start Date End Date Status metFORMIN (GLUCOPHAGE) Take 1,000 mg Active 1000 MG tablet by mouth 2 times a day with meals. omega-3 fatty acids (FISH Take 1,000 mg Active OIL) 1000 mg capsule by mouth 3 times a day. vitamin E 400 UNITS Take 400 Active capsule Units by mouth 1 time per day. Calcium Carbonate-Vitamin Take by Active D (CALCIUM 500 + D PO) mouth. levothyroxine 75 mcg Take 75 mcg Active tablet by mouth 1 time per day. simvastatin (ZOCOR) 20 mg Take 20 mg by Active tablet mouth every night at bedtime. levothyroxine 125 mcg 04/22/2015 Active tablet lisinopril (PRINIVIL, 2 05/05/2015 Active ZESTRIL) 2.5 MG tablet NIFEdipine (PROCARDIA XL) 03/18/2015 Active 30 MG TB24 vitamin C (ASCORBIC ACID) Take 250 mg Active 250 MG CHEW by mouth dilTIAZem (CARDIZEM CD) 3 05/02/2017 Active 300 mg extended release capsule CALCIUM-VITAMIN D PO Take 1,200 mg 03/16/2011 Active by mouth aspirin 325 MG enteric Take 1 tablet 40 tablet 0 06/27/2018 Active coated tabletIndications: (325 mg) by Hip fracture requiring mouth 1 time operative repair, left, per day closed, initial encounter HYDROcodone-acetaminophen Take 1 tablet 0 06/26/2018 Active (NORCO) 5-325 mg by mouth tabletIndications: Hip every 6 hours fracture requiring as needed for operative repair, left, severe pain closed, initial encounter traMADol (ULTRAM) 50 mg Take 0.5-1 0 06/26/2018 Active tabletIndications: Hip tablets fracture requiring (25-50 mg) by operative repair, left, mouth Every 6 closed, initial encounter hours NIFEdipine (NIFEDIAC CC) Take 30 mg by Suspended 30 mg SR tablet (24 hr) mouth 1 time 8 per day. aspirin 81 mg enteric Take 81 mg by Suspended coated tablet mouth 1 time 8 per day. 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 She does not have evidence of diabetic retinopathy today. I will reassess in 1 year. Capsular opacification 03/30/2014 Last Assessment & Plan: Left eye, not obscuring vision. Monitor. Pseudophakia R 01/31/12, L 01/23/2014 01/24/2012 Last Assessment & Plan: Stable, monitor. Other hammer toe (acquired) 10/06/2008 Hallux valgus, acquired 04/23/2007 Presbyopia Last Assessment & Plan: Copy of spectacle Rx given. Vitreous degeneration as of this encounter Social History Tobacco Use Types Packs/Day Years Used Date Never Smoker Smokeless Tobacco: Never Used Alcohol Use Drinks/Week oz/Week Comments No 0 Standard drinks or equivalent 0.0 Sex Assigned at Date Recorded Not on file as of this encounter Last Filed Vital Signs Vital Sign Reading Time Taken Blood Pressure 120/71 06/26/2018 8:04 AM CDT Pulse 110 06/26/2018 8:04 AM CDT Temperature 35.2 C (95.4 F) 06/26/2018 8:04 AM CDT Respiratory Rate 20 06/26/2018 8:04 AM CDT Oxygen Saturation 96% 06/26/2018 8:04 AM CDT Inhaled Oxygen Concentration - - Weight 63.5 kg (140 lb) 06/22/2018 6:00 PM CDT Height 160 cm (5' 3") 06/22/2018 6:00 PM CDT Body Mass Index 24.8 06/22/2018 6:00 PM CDT in this encounter Functional Status Functional Status Response Date of Assessment Is the person deaf or does he/she have serious difficulty No 06/22/2018 hearing? Is this person blind or does he/she have difficulty No 06/22/2018 seeing even when wearing glasses? Do you have difficulty with walking, balance, climbing No 06/22/2018 stairs, or had a fall in the last 3 months? Does the patient have difficulty dressing or bathing? No 06/22/2018 Because of a physical, mental, or emotional condition; No 06/22/2018 does this person have difficulty doing errands alone such as visiting a doctor's office or shopping? Cognitive Status Response Date of Assessment Because of a physical, mental, or emotional condition; No 06/22/2018 does this person have serious difficulty concentrating, remembering, or making decisions? as of this encounter Discharge Summaries Santana Landers DO - 06/26/2018 10:47 AM CDTFormatting of this note may be different from the original. Hospital Discharge Summary Attending Physician: Santana Landers DO Attending Physician Specialty: Adult Hospitalist Admit Date: 06/22/2018 Discharge Date: 06/26/18 Primary Care Physician: Charanjit Mcdonald MD Discharge Diagnoses Active Problems: Hip fracture requiring operative repair, left, closed, initial encounter Hip fracture Resolved Problems: * No resolved hospital problems. * Hospital Course 1. Left hip fracture: Status post fall. - POD 3 Continue pain management, regular diet Appreciate orthopedic surgery input. No intra- or post-operative complication noted. Early ambulation postsurgically, PT as per orthopedic recommendations DC planning for today to swing bed. 2. Hypertension: Stable Continue DEYSI-I. Continue on nifedipine, Cardizem Hold HCTZ as patient with hyponatremia 3. Hypothyroidism: Continue on current home medications 4. Hyponatremia: Likely secondary to post-surgical state and effects of diuretics Hold HCTZ Encourage PO intake DVT prophylaxis - ASA as per ortho LabTests Pending at Discharge Follow-Up Scheduled Preliminary Discharge Medications This list of medications is preliminary and tentative. Please see the After Visit Summary for the final and accurate medication list. Discharge Medication List START taking these medications START: HYDROcodone-acetaminophen 5-325 mg tablet Commonly known as: NORCO Dose: 1 tablet Take 1 tablet by mouth every 6 hours as needed for severe pain START: traMADol 50 mg tablet Commonly known as: ULTRAM Dose: 25-50 mg Take 0.5-1 tablets (25-50 mg) by mouth Every 6 hours CONTINUE taking these medications which have CHANGED CONTINUE: aspirin 325 MG enteric coated tablet Dose: 325 mg Take 1 tablet (325 mg) by mouth 1 time per day Start taking on: 06/27/2018 What changed: - medication strength - how much to take CONTINUE: NIFEdipine 30 MG Tb24 Commonly known as: PROCARDIA XL What changed: Another medication with the same name was removed. Continue taking this medication, and follow the directions you see here. CONTINUE taking these medications which have NOT CHANGED CONTINUE: CALCIUM 500 + D PO Take by mouth. CONTINUE: CALCIUM-VITAMIN D PO Dose: 1200 mg Take 1,200 mg by mouth CONTINUE: dilTIAZem 300 mg extended release capsule Commonly known as: CARDIZEM CD CONTINUE: * levothyroxine 75 mcg tablet Dose: 75 mcg Take 75 mcg by mouth 1 time per day. CONTINUE: * levothyroxine 125 mcg tablet CONTINUE: lisinopril 2.5 MG tablet Commonly known as: PRINIVIL, ZESTRIL CONTINUE: metFORMIN 1000 MG tablet Commonly known as: GLUCOPHAGE Dose: 1000 mg Take 1,000 mg by mouth 2 times a day with meals. CONTINUE: simvastatin 20 mg tablet Commonly known as: ZOCOR Dose: 20 mg Take 20 mg by mouth every night at bedtime. CONTINUE: vitamin C 250 MG Chew Commonly known as: ascorbic acid Dose: 250 mg Take 250 mg by mouth CONTINUE: vitamin E 400 units capsule Dose: 400 Units Take 400 Units by mouth 1 time per day. * Notice: This list has 2 medication(s) that are the same as other medications prescribed for you.Read the directions carefully, and ask your doctor or other care provider to review them with you. STOP taking these medications STOP: hydroCHLOROthiazide 12.5 MG capsule Where to Get Your Medications Information about where to get these medications is not yet available ! Ask your nurse or doctor about these medications aspirin 325 MG enteric coated tablet HYDROcodone-acetaminophen 5-325 mg tablet traMADol 50 mg tablet Temp: 95.4 F (35.2 C) BP: 120/71 Weight: 63.5 kg (140 lb) SpO2: 96 % Resp: 20 Pulse: 110 Current BMI (>50=increased risk): 24.81 O2 Device: Room Air O2 Flow Rate (L/min): 2 l/min Physical Exam See todays progress note. Procedures Performed and Findings All procedures during admission Procedure(s): Left hip pinning (cannulated screws) Consultations Obtained SOCIAL SVS/CARE MGMT REFERRAL Discharge Disposition ADULT Discharge Planning: Home (1, 2) Instructions for after discharge Bathing - May shower Dressing change - Remove Aquacel dressing on postoperative day #7, then replace with Aquacel for 7 days May resume home diet Medical Decision Making A total of 45 minutes were spent on discharge coordination. in this encounter Discharge Instructions Santana Landers DO - 06/26/2018Continue on home medications - Take high dose aspirin for 30 days then return to 81 mg daily dose Take pain medications as needed Follow-up with orthopedic surgery in 2 weeks in this encounter Progress Notes Santana Landers DO - 06/26/2018 10:37 AM CDTFormatting of this note may be different from the original. Hospital Progress Note Shirley Goetz is a 87yr old female admitted on 06/22/2018. Assessment / Plan Active Problems: Hip fracture requiring operative repair, left, closed, initial encounter Hip fracture Resolved Problems: * No resolved hospital problems. * Plan: 1. Left hip fracture: Status post fall. - POD 3 Continue pain management, regular diet Appreciate orthopedic surgery input. No intra- or post-operative complication noted. Early ambulation postsurgically, PT as per orthopedic recommendations DC planning for today to swing bed. 2. Hypertension: Stable Continue DEYSI-I. Continue on nifedipine, Cardizem Hold HCTZ as patient with hyponatremia 3. Hypothyroidism: Continue on current home medications 4. Hyponatremia: Likely secondary to post-surgical state and effects of diuretics Hold HCTZ Encourage PO intake DVT prophylaxis - ASA as per ortho Dispo: DC planning for today Discharge instruction and preparation for 45 min. Time spent with patient, family, nursing staff and case mgt. On discharge preparation. All questions answered fully. Patient and/or family/caregiververbalized understanding. HPI / History / ROS Patient feeling well. Pain well controlled. Tolorating PT well. No fevers. No other overnight events. A complete review of systems has been been performed. Pertinent positives noted in HPI. All other systems negative. Physical / Results Current Vital Signs Temp: 95.4 F (35.2 C) BP: 120/71 Weight: 63.5 kg (140 lb) SpO2: 96 % Resp: 20 Pulse: 110 Current BMI (>50=increased risk): 24.81 O2 Device: Room Air O2 Flow Rate (L/min): 2 l/min Pain Ratin General Appearance: alert, well appearing, and in no distress Mouth: mucous membranes moist, pharynx normal without lesions Chest: clear to auscultation, no wheezes, rales or rhonchi, symmetric air entry Heart: normal rate, regular rhythm, normal S1, S2, no murmurs, rubs, clicks or gallops Abdomen: soft, nontender, nondistended, no masses or organomegaly Extremities: peripheral pulses normal, no pedal edema, no clubbing or cyanosis Medical Decision Making I have: Independently visualized and interpreted an image, tracing or specimen previously or subsequently interpreted by another provider. Discussed case with another provider (details outlined elsewhere in note). Nargis Samuels APRN-PROMOTION PRODUCER - 06/26/2018 9:02 AM CDTFormatting of this note may be different from the original. S: The patient is post op day #3 from their Left hip surgery. Pain is controlled well with oral painmedications. Therapy went well yesterday. Patient denies any shortness of breath, chest pain, nausea, or lightheadedness. The patient is passing gas. O: Current Vital Signs Temp: 95.4 F (35.2 C) BP: 120/71 Pulse: 110 O2 Device: Room Air O2 Flow Rate (L/min): 2 l/min Resp: 20 Pain Ratin (out of 10) Weight: 63.5 kg (140 lb) SpO2: 96 % Lab Results Component Value Date WBC 9.5 06/25/2018 RBC 3.75 (L) 06/25/2018 HEMOGLOBIN 10.6 (L) 06/25/2018 HEMATOCRIT 32.1 (L) 06/25/2018 MCV 85.6 06/25/2018 MCH 28.3 06/25/2018 MCHC 33.0 06/25/2018 PLTCOUNT 189 06/25/2018 NEUTROPCT 68.3 06/25/2018 LYMPHSPCT 17.8 06/25/2018 MONOSPCT 8.4 06/25/2018 EOSPCT 5.1 06/25/2018 BASOPHILPCT 0.2 06/25/2018 Lab Results Component Value Date GLUCOSE 137 (H) 06/26/2018 BUN 11 06/25/2018 CREATSERUM 0.72 06/25/2018 BCRATIO 15.3 06/25/2018 NA 131 (L) 06/25/2018 POTASSIUM 4.4 06/25/2018 CL 97 (L) 06/25/2018 CO2 24 06/25/2018 CA 9.0 06/25/2018 Lab Results Component Value Date INR 1.0 06/22/2018 PT 10.8 06/22/2018 CMS intact distally. Mild to moderate edema present in the left lower extremity. Dressing C/D/I. A: POD #3 Active Hospital Problems Diagnosis Date Noted Hip fracture 06/23/2018 Hip fracture requiring operative repair, left, closed, initial encounter 02/2018 Resolved Hospital Problems Diagnosis Date Noted Date Resolved No resolved problems to display. P: Continue with treatment plan. Plan for discharge today for [facility]. Patient to change Aquacel dressing POD #7 (06/30/18). She is weightbearing as tolerated to left lower extremity. Patient to be on ASA daily for 6 weeks post-op. She will follow up with Sapna in the orthopedic clinic in 10-14 days for wound check, and staple removal.Santana Landers, - 2017 10:48 AM CDTFormatting of this note may be different from the original. Hospital Progress Note Shirley Goetz is a 87yr old female admitted on 06/22/2018. Assessment / Plan Active Problems: Hip fracture requiring operative repair, left, closed, initial encounter Hip fracture Resolved Problems: * No resolved hospital problems. * Plan: 1. Left hip fracture: Status post fall. - POD 2 Continue pain management, regular diet Appreciate orthopedic surgery input. No intra- or post-operative complication noted. Early ambulation postsurgically, PT as per orthopedic recommendations 2. Hypertension: Stable Restart DEYSI-I. Continue on nifedipine, Cardizem Hold HCTZ as patient with hyponatremia Monitor postoperatively 3. Hypothyroidism: Continue on current home medications 4. Hyponatremia: Likely secondary to post-surgical state and effects of diuretics Hold HCTZ Encourage PO intake DVT prophylaxis - ASA as per ortho Dispo: DC planning when placement arranged HPI / History / ROS Patient feeling well. Pain well controlled. Tolorating Pt well. No other overnight events. A complete review of systems has been been performed. Pertinent positives noted in HPI. All other systems negative. Physical / Results Current Vital Signs Temp: 96.7 F (35.9 C) BP: 124/77 Weight: 63.5 kg (140 lb) SpO2: 95 % Resp: 16 Pulse: 97 Current BMI (>50=increased risk): 24.81 O2 Device: NC - no humidity O2 Flow Rate (L/min): 2 l/min Pain Ratin General Appearance: alert, well appearing, and in no distress Chest: clear to auscultation, no wheezes, rales or rhonchi, symmetric air entry Heart: normal rate, regular rhythm, normal S1, S2, no murmurs, rubs, clicks or gallops Abdomen: soft, nontender, nondistended, no masses or organomegaly Extremities: peripheral pulses normal, no pedal edema, no clubbing or cyanosis Medical Decision Making I have: Independently visualized and interpreted an image, tracing or specimen previously or subsequently interpreted by another provider. Discussed results of laboratory, radiology or other diagnostic tests with the physician who performed or interpreted the study. Discussed case with another provider (details outlined elsewhere in note). Nargis Samuels APRN-[employer] PRODUCER - 06/25/2018 8:45 AM CDTFormatting of this note may be different from the original. S: The patient is post op day #2 from their Left hip surgery. Pain is controlled well with oral painmedications. Therapy went ok yesterday. Patient denies any shortness of breath, chest pain, nausea, or lightheadedness. The patient is not passing gas. O: Current Vital Signs Temp: 96.7 F (35.9 C) BP: 124/77 Pulse: 97 O2 Device: NC - no humidity O2 Flow Rate (L/min): 2 l/min Resp: 16 Pain Ratin (out of 10) Weight: 63.5 kg (140 lb) SpO2: 95 % Lab Results Component Value Date WBC 9.5 06/25/2018 RBC 3.75 (L) 06/25/2018 HEMOGLOBIN 10.6 (L) 06/25/2018 HEMATOCRIT 32.1 (L) 06/25/2018 MCV 85.6 06/25/2018 MCH 28.3 06/25/2018 MCHC 33.0 06/25/2018 PLTCOUNT 189 06/25/2018 NEUTROPCT 68.3 06/25/2018 LYMPHSPCT 17.8 06/25/2018 MONOSPCT 8.4 06/25/2018 EOSPCT 5.1 06/25/2018 BASOPHILPCT 0.2 06/25/2018 Lab Results Component Value Date GLUCOSE 141 (H) 06/25/2018 BUN 11 06/25/2018 CREATSERUM 0.72 06/25/2018 BCRATIO 15.3 06/25/2018 NA 131 (L) 06/25/2018 POTASSIUM 4.4 06/25/2018 CL 97 (L) 06/25/2018 CO2 24 06/25/2018 CA 9.0 06/25/2018 Lab Results Component Value Date INR 1.0 06/22/2018 PT 10.8 06/22/2018 CMS intact distally. Mild to moderate edema present in the left lower extremity. Dressing C/D/I. A: POD #2 Active Hospital Problems Diagnosis Date Noted Hip fracture 06/23/2018 Hip fracture requiring operative repair, left, closed, initial encounter 02/2018 Resolved Hospital Problems Diagnosis Date Noted Date Resolved No resolved problems to display. P: Continue with treatment plan. Discharge pending therapy progress and obtaining discharge goals. Patient will need either ARU or swingbed on discharge.Santana Landers DO - 06/24/2018 9:36 AM CDTFormatting of this note may be different from the original. Hospital Progress Note Shirley Goetz is a 87yr old female admitted on 06/22/2018. Assessment / Plan Active Problems: Hip fracture requiring operative repair, left, closed, initial encounter Hip fracture Resolved Problems: * No resolved hospital problems. * Plan: 1. Left hip fracture: Status post fall. - POD 1 Continue pain management, advance diet as tolorated Appreciate orthopedic surgery input. No intra- or post-operative complication noted. Early ambulation postsurgically, PT as per orthopedic recommendations Continue to hold DEYSI-I for now Will decrease pain med regimen as patient very groggy this am 2. Hypertension: Stable Hold lisinopril for now. Continue hydrochlorothiazide, nifedipine, Cardizem Monitor postoperatively 3. Hypothyroidism: Continue on current home medications DVT prophylaxis - ASA as per ortho Dispo: DC planning for next 24 hours. Patient would likely benefit from ARU HPI / History / ROS Patient feeling well. No pain this am. Transferred to chair nd tolorated well. +++ Groggy - likely from recent pain meds given. No fevers. No other overnight events. A complete review of systems has been been performed. Pertinent positives noted in HPI. All other systems negative. Physical / Results Current Vital Signs Temp: 95.6 F (35.3 C) BP: 103/65 Weight: 63.5 kg (140 lb) SpO2: 94 % Resp: 28 Pulse: 124 Current BMI (>50=increased risk): 24.81 O2 Device: Mask - Oxymask O2 Flow Rate (L/min): 2 l/min Pain Ratin General Appearance: alert, well appearing, and in no distress, drowsy Chest: clear to auscultation, no wheezes, rales or rhonchi, symmetric air entry Heart: normal rate, regular rhythm, normal S1, S2, no murmurs, rubs, clicks or gallops Abdomen: soft, nontender, nondistended, no masses or organomegaly Extremities: peripheral pulses normal, no pedal edema, no clubbing or cyanosis Medical Decision Making I have: Independently visualized and interpreted an image, tracing or specimen previously or subsequently interpreted by another provider. Discussed results of laboratory, radiology or other diagnostic tests with the physician who performed or interpreted the study. Discussed case with another provider (details outlined elsewhere in note). Nargis Samuels, TRACK SUPERVISOR-[employer]OTION PRODUCER - 06/24/2018 8:37 AM CDTFormatting of this note may be different from the original. S: The patient is post op day #1 for their Left hip surgery. Pain controlled with oral and IV medications. Patient denies any shortness of breath, chest pain, nausea, or lightheadedness. The patient is not passing gas. O: Current Vital Signs Temp: 95.6 F (35.3 C) BP: 92/62 Pulse: 115 O2 Device: Mask - Oxymask O2 Flow Rate (L/min): 2 l/min Resp: 16 Pain Ratin (out of 10) Weight: 63.5 kg (140 lb) SpO2: 95 % Lab Results Component Value Date WBC 11.6 (H) 06/24/2018 RBC 3.95 06/24/2018 HEMOGLOBIN 11.2 (L) 06/24/2018 HEMATOCRIT 33.9 (L) 06/24/2018 MCV 85.8 06/24/2018 MCH 28.4 06/24/2018 MCHC 33.0 06/24/2018 PLTCOUNT 201 06/24/2018 NEUTROPCT 65.1 06/24/2018 LYMPHSPCT 22.2 06/24/2018 MONOSPCT 9.1 06/24/2018 EOSPCT 3.1 06/24/2018 BASOPHILPCT 0.2 06/24/2018 Lab Results Component Value Date GLUCOSE 118 (H) 06/24/2018 BUN 11 06/24/2018 CREATSERUM 0.72 06/24/2018 BCRATIO 15.3 06/24/2018 NA 133 (L) 06/24/2018 POTASSIUM 4.4 06/24/2018 CL 102 06/24/2018 CO2 20 (L) 06/24/2018 CA 8.8 06/24/2018 Lab Results Component Value Date INR 1.0 06/22/2018 PT 10.8 06/22/2018 CMS intact distally. Mild to moderate edema of the left lower extremity extremity. Dressing is clean/dry/intact. A: POD #1 Active Hospital Problems Diagnosis Date Noted Hip fracture 06/23/2018 Hip fracture requiring operative repair, left, closed, initial encounter 02/2018 Resolved Hospital Problems Diagnosis Date Noted Date Resolved No resolved problems to display. P: Patient to see physical and occupational therapy today, WBAT. Partner Cco to see patient andhelp with discharge planning, likely will need a rehab stay when goals are met. Patient has no history of DVT or PE so they were started on ASA for DVT prophylaxis. Plan to wean from IV medications today. Santana Landers DO - 06/23/2018 11:03 AM CDTFormatting of this note may be different from the original. Hospital Progress Note Shirley Goetz is a 87yr old female admitted on 06/22/2018. Assessment / Plan Active Problems: Hip fracture requiring operative repair, left, closed, initial encounter Resolved Problems: * No resolved hospital problems. * Plan: 1. Left hip fracture: Status post fall. Continue pain management, nothing by mouth for now Appreciate orthopedic surgery input. Patient scheduled for orthopedics procedure/surgical repair today Early ambulation postsurgically, PT as per orthopedic recommendations IV fluids. Hold lisinopril to prevent intraoperative hypotension Patient is at intermediate risk for intermediate risk procedure. No further workup needed at this time. Low cardiopulmonary risk at this time. Patient may proceed with surgery. Patient is currently medically optimized. 2. Hypertension: Stable Hold lisinopril for now. Continue hydrochlorothiazide, nifedipine, Cardizem Monitor postoperatively 3. Hypothyroidism: Continue on current home medications DVT prophylaxis - SCDs for now Postoperative DVT prophylaxis recommended, as per orthopedics Disposition - hopeful discharge in the next 48 hours if stable. HPI / History / ROS Patient feeling well. Pain well controlled. No fever or chills. No other overnight events. A complete review of systems has been been performed. Pertinent positives noted in HPI. All other systems negative. Physical / Results Current Vital Signs Temp: 96.2 F (35.7 C) BP: 120/69 Weight: 63.5 kg (140 lb) SpO2: 94 % Resp: 16 Pulse: 118 Current BMI (>50=increased risk): 24.81 O2 Device: NC - no humidity O2 Flow Rate (L/min): 1 l/min General Appearance: alert, well appearing, and in no distress Chest: clear to auscultation, no wheezes, rales or rhonchi, symmetric air entry Heart: normal rate, regular rhythm, normal S1, S2, no murmurs, rubs, clicks or gallops Abdomen: soft, nontender, nondistended, no masses or organomegaly Neurological: cranial nerves II through XII intact and motor and sensory grossly normal bilaterally Medical Decision Making I have: Independently visualized and interpreted an image, tracing or specimen previously or subsequently interpreted by another provider. Discussed case with another provider (details outlined elsewhere in note). in this encounter Plan of Treatment Date Type Specialty Care Team Description 07/10/2018 Office Visit Orthopedics Sapna Granados, [place] [address] [place] [address] [phone] Health Maintenance Due Date Last Done Comments Hemoglobin A1C Every 6 Months 1930 Microalbumin 1931 Diabetic Foot Exam 1941 Tetanus Vaccine 1949 Lipid Screening 1952 Zoster Vaccine (1 of 2 - RZV, 1981 Shingrix) DEXA/Heel Scan 1996 Pneumococcal 65yr+ Low/Med Risk (1 1996 of 2 - PCV13) Influenza Vaccine (#1) 2018 Ophthalmology Exam 06/10/2019 06/10/2018, 06/10/2018, 06/04/2017, Additional history exists as of this encounter Implants Implanted Type Area Topology Professor Device Expiration Date Model / Identifier Serial / Lot Screw Ria Synt [id number] N 208.438 Ea1 - [id number] Left: HIP [employer]PU[employer] SYNTHES 208.438 / Implanted: Qty: 1 on 06/23/2018 by José Miguel Thomas MD / Srinivasan Ria Synt [id number] N 208.439 Ea1 - [id number] Left: [employer]IP [employer]PU[employer] SYNTHES 208.439 / Implanted: Qty: 1 on 06/23/2018 by José Miguel Thomas MD / as of this encounter Procedures Procedure Name Priority Date/Time Associated Comments Diagnosis GLUCOSE BY METER, Routine 06/26/2018 11:23 Results for this POCT AM CDT procedure are in the results section. GLUCOSE BY METER, Routine 06/26/2018 6:57 Results for this POCT AM CDT procedure are in the results section. GLUCOSE BY METER, Routine 06/25/2018 8:10 Results for this POCT PM CDT procedure are in the results section. GLUCOSE BY METER, Routine 06/25/2018 4:35 Results for this POCT PM CDT procedure are in the results section. GLUCOSE BY METER, Routine 06/25/2018 11:26 Results for this POCT AM CDT procedure are in the results section. GLUCOSE BY METER, Routine 06/25/2018 6:15 Results for this POCT AM CDT procedure are in the results section. LAB ONLY-COMPLETE Routine 06/25/2018 5:40 Results for this BLOOD COUNT WITH AM CDT procedure are in DIFFERENTIAL the results section. BASIC METABOLIC PANEL Routine 06/25/2018 5:40 Results for this AM CDT procedure are in the results section. COMPLETE BLOOD COUNT Routine 06/25/2018 5:40 Results for this WITH DIFFERENTIAL AM CDT procedure are in the results section. GLUCOSE BY METER, Routine 06/24/2018 9:16 Results for this POCT PM CDT procedure are in the results section. GLUCOSE BY METER, Routine 06/24/2018 4:40 Results for this POCT PM CDT procedure are in the results section. GLUCOSE BY METER, Routine 06/24/2018 11:21 Results for this POCT AM CDT procedure are in the results section. LAB ONLY-COMPLETE Routine 06/24/2018 6:28 Results for this BLOOD COUNT WITH AM CDT procedure are in DIFFERENTIAL the results section. BASIC METABOLIC PANEL Routine 06/24/2018 6:28 Results for this AM CDT procedure are in the results section. COMPLETE BLOOD COUNT Routine 06/24/2018 6:28 Results for this WITH DIFFERENTIAL AM CDT procedure are in the results section. GLUCOSE BY METER, Routine 06/24/2018 6:15 Results for this POCT AM CDT procedure are in the results section. GLUCOSE BY METER, Routine 06/23/2018 8:32 Results for this POCT PM CDT procedure are in the results section. GLUCOSE BY METER, Routine 06/23/2018 11:39 Results for this POCT AM CDT procedure are in the results section. SURGICAL CASE REQUEST Routine 06/23/2018 9:45 AM CDT LAB ONLY-COMPLETE Routine 06/23/2018 6:58 Results for this BLOOD COUNT WITH AM CDT procedure are in DIFFERENTIAL the results section. BASIC METABOLIC PANEL Routine 06/23/2018 6:58 Results for this AM CDT procedure are in the results section. COMPLETE BLOOD COUNT Routine 06/23/2018 6:58 Results for this WITH DIFFERENTIAL AM CDT procedure are in the results section. GLUCOSE BY METER, Routine 06/23/2018 6:09 Results for this POCT AM CDT procedure are in the results section. GLUCOSE BY METER, Routine 06/22/2018 8:56 Results for this POCT PM CDT procedure are in the results section. LAB ONLY-COMPLETE Routine 06/22/2018 6:36 Results for this BLOOD COUNT WITH PM CDT procedure are in DIFFERENTIAL the results section. PTT Routine 06/22/2018 6:36 Results for this PM CDT procedure are in the results section. PROTIME/INR Routine 06/22/2018 6:36 Results for this PM CDT procedure are in the results section. BASIC METABOLIC PANEL Routine 06/22/2018 6:36 Results for this PM CDT procedure are in the results section. COMPLETE BLOOD COUNT Routine 06/22/2018 6:36 Results for this WITH DIFFERENTIAL PM CDT procedure are in the results section. in this encounter Results GLUCOSE BY METER, POCT (06/26/2018 11:23 AM) Component Value Ref Range Glucose POC 164 (H) 70 - 100 mg/dL Specimen Performing Laboratory Blood [facility] [address] [place] [address] GLUCOSE BY METER, POCT (06/26/2018 6:57 AM) Component Value Ref Range Glucose POC 137 (H) 70 - 100 mg/dL Specimen Performing Laboratory Blood [facility] [address] [place] [address] GLUCOSE BY METER, POCT (06/25/2018 8:10 PM) Component Value Ref Range Glucose POC 184 (H) 70 - 100 mg/dL Specimen Performing Laboratory Blood [facility] [address] [place] [address] GLUCOSE BY METER, POCT (06/25/2018 4:35 PM) Component Value Ref Range Glucose POC 186 (H) 70 - 100 mg/dL Specimen Performing Laboratory Blood [facility] [address] [place] [address] GLUCOSE BY METER, POCT (06/25/2018 11:26 AM) Component Value Ref Range Glucose POC 173 (H) 70 - 100 mg/dL Specimen Performing Laboratory Blood [facility] [address] [place] [address] GLUCOSE BY METER, POCT (06/25/2018 6:15 AM) Component Value Ref Range Glucose POC 141 (H) 70 - 100 mg/dL Specimen Performing Laboratory Blood [facility] [address] [place] [address] LAB ONLY-COMPLETE BLOOD COUNT WITH DIFFERENTIAL (06/25/2018 5:40 AM) Component Value Ref Range WBC 9.5 4.0 - 11.0 K/uL RBC 3.75 (L) 3.80 - 5.30 M/uL Hemoglobin 10.6 (L) 11.5 - 15.8 g/dL Hematocrit 32.1 (L) 35.0 - 45.0 % MCV 85.6 80.0 - 98.0 fL MCH 28.3 25.5 - 34.0 pg MCHC 33.0 31.5 - 36.5 g/dL RDW-CV 14.3 11.5 - 15.5 % RDW-SD 43.6 35.5 - 50.0 fl Platelet Count 189 140 - 400 K/uL MPV 9.7 8.5 - 12.0 fL Seg Neut Absolute 6.5 1.8 - 8.0 K/uL Lymphocytes Absolute 1.7 0.8 - 4.1 K/uL Monocytes Absolute 0.8 0.0 - 1.0 K/uL Eosinophils Absolute 0.5 0.0 - 0.7 K/uL Basophil Absolute 0.0 0.0 - 0.2 K/uL Neutrophils Abs. (Segs and Bands) 6500 /uL Neutrophils Percent 68.3 % Lymphocytes Percent 17.8 % Monocytes Percent 8.4 % Eosinophils Percent 5.1 % Basophil Percent 0.2 % Specimen Performing Laboratory Blood [facility] [address] [place] [address] BASIC METABOLIC PANEL (06/25/2018 5:40 AM) Component Value Ref Range Glucose 143 (H) 70 - 100 mg/dL BUN 11 6 - 22 mg/dL Creatinine 0.72 0.60 - 1.10 mg/dL BUN/Creatinine Ratio 15.3 10.0 - 25.0 Sodium 131 (L) 135 - 145 meq/L Potassium 4.4 3.5 - 5.3 meq/L Chloride 97 (L) 99 - 110 meq/L CO2 24 23 - 32 meq/L Anion Gap with K 14 6 - 20 meq/L Calcium 9.0 8.5 - 10.5 mg/dL Age 87 Years eGFR Non- 77 >=60 mL/min/1.73m2 eGFR >90 >=60 mL/min/1.73m2 Comment: The estimated Glomerular Filtration Rate (eGFR) is calculated using the Abbreviated Modification of Diet in Renal Disease (MDRD) equation.The eGFR is reported out in mL/min. per 1.73 meter squared units. The National Kidney Foundation action value for patients without a diagnosis of chronic kidney disease is a eGFR of < 60 mL/min per 1.73M2. The National Kidney Foundation stages listed below apply to patients with a diagnosis of chronic kidney disease (defined as either kidney damage or eGFR < 60 mL/min/1.73 m2 for 3 months).Kidney da mage is defined as pathologic abnormalities or markers of damage, including abnormalities in blood or urine tests or imaging studies.These stages apply to adults.No standardized classification has yet been established for pediatric patients. Stage eGFR in ml/min per 1.73M2 1 Kidney abnormality with normal or increased eGFR >or=90 2 Kidney abnormality with mild decreased eGFR 60-89 3 Moderately decreasedeGFR 30-59 4 Severely decreased eGFR 15-29 5 Kidney failure <15 The eGFR varies with age, sex, race and body size and normally decreases with age. Specimen Performing Laboratory Blood [facility] [address] [place] [address] COMPLETE BLOOD COUNT WITH DIFFERENTIAL (06/25/2018 5:40 AM) Specimen Performing Laboratory Blood Narrative The following orders were created for panel order COMPLETE BLOOD COUNT WITH DIFFERENTIAL. Procedure Abnormality Status --------- ------ LAB ONLY-COMPLETE BLOOD ...[[id number]]AbnormalFinal result Please view results for these tests on the individual orders. GLUCOSE BY METER, POCT (06/24/2018 9:16 PM) Component Value Ref Range Glucose POC 160 (H) 70 - 100 mg/dL Specimen Performing Laboratory Blood [facility] [address] [place] [address] GLUCOSE BY METER, POCT (06/24/2018 4:40 PM) Component Value Ref Range Glucose POC 177 (H) 70 - 100 mg/dL Specimen Performing Laboratory Blood [facility] [address] [place] [address] GLUCOSE BY METER, POCT (06/24/2018 11:21 AM) Component Value Ref Range Glucose POC 184 (H) 70 - 100 mg/dL Specimen Performing Laboratory Blood [facility] [address] [place] [address] LAB ONLY-COMPLETE BLOOD COUNT WITH DIFFERENTIAL (06/24/2018 6:28 AM) Component Value Ref Range WBC 11.6 (H) 4.0 - 11.0 K/uL RBC 3.95 3.80 - 5.30 M/uL Hemoglobin 11.2 (L) 11.5 - 15.8 g/dL Hematocrit 33.9 (L) 35.0 - 45.0 % MCV 85.8 80.0 - 98.0 fL MCH 28.4 25.5 - 34.0 pg MCHC 33.0 31.5 - 36.5 g/dL RDW-CV 14.5 11.5 - 15.5 % RDW-SD 44.0 35.5 - 50.0 fl Platelet Count 201 140 - 400 K/uL MPV 9.6 8.5 - 12.0 fL Seg Neut Absolute 7.6 1.8 - 8.0 K/uL Lymphocytes Absolute 2.6 0.8 - 4.1 K/uL Monocytes Absolute 1.1 (H) 0.0 - 1.0 K/uL Eosinophils Absolute 0.4 0.0 - 0.7 K/uL Basophil Absolute 0.0 0.0 - 0.2 K/uL Neutrophils Abs. (Segs and Bands) 7600 /uL Neutrophils Percent 65.1 % Lymphocytes Percent 22.2 % Monocytes Percent 9.1 % Eosinophils Percent 3.1 % Basophil Percent 0.2 % Specimen Performing Laboratory Blood [facility] [address] [place] [address] BASIC METABOLIC PANEL (06/24/2018 6:28 AM) Component Value Ref Range Glucose 118 (H) 70 - 100 mg/dL BUN 11 6 - 22 mg/dL Creatinine 0.72 0.60 - 1.10 mg/dL BUN/Creatinine Ratio 15.3 10.0 - 25.0 Sodium 133 (L) 135 - 145 meq/L Potassium 4.4 3.5 - 5.3 meq/L Chloride 102 99 - 110 meq/L CO2 20 (L) 23 - 32 meq/L Anion Gap with K 15 6 - 20 meq/L Calcium 8.8 8.5 - 10.5 mg/dL Age 87 Years eGFR Non- 77 >=60 mL/min/1.73m2 eGFR >90 >=60 mL/min/1.73m2 Comment: The estimated Glomerular Filtration Rate (eGFR) is calculated using the Abbreviated Modification of Diet in Renal Disease (MDRD) equation.The eGFR is reported out in mL/min. per 1.73 meter squared units. The National Kidney Foundation action value for patients without a diagnosis of chronic kidney disease is a eGFR of < 60 mL/min per 1.73M2. The National Kidney Foundation stages listed below apply to patients with a diagnosis of chronic kidney disease (defined as either kidney damage or eGFR < 60 mL/min/1.73 m2 for 3 months).Kidney da mage is defined as pathologic abnormalities or markers of damage, including abnormalities in blood or urine tests or imaging studies.These stages apply to adults.No standardized classification has yet been established for pediatric patients. Stage eGFR in ml/min per 1.73M2 1 Kidney abnormality with normal or increased eGFR >or=90 2 Kidney abnormality with mild decreased eGFR 60-89 3 Moderately decreasedeGFR 30-59 4 Severely decreased eGFR 15-29 5 Kidney failure <15 The eGFR varies with age, sex, race and body size and normally decreases with age. Specimen Performing Laboratory Blood [facility] [address] [place] [address] COMPLETE BLOOD COUNT WITH DIFFERENTIAL (06/24/2018 6:28 AM) Specimen Performing Laboratory Blood Narrative The following orders were created for panel order COMPLETE BLOOD COUNT WITH DIFFERENTIAL. Procedure Abnormality Status --------- ------ LAB ONLY-COMPLETE BLOOD ...[[id number]]AbnormalFinal result Please view results for these tests on the individual orders. GLUCOSE BY METER, POCT (06/24/2018 6:15 AM) Component Value Ref Range Glucose POC 116 (H) 70 - 100 mg/dL Specimen Performing Laboratory Blood [facility] [address] [place] [address] GLUCOSE BY METER, POCT (06/23/2018 8:32 PM) Component Value Ref Range Glucose POC 193 (H) 70 - 100 mg/dL Specimen Performing Laboratory Blood [facility] [address] [place] [address] XRAY WRIST 2 VIEWS LT (06/23/2018 3:28 PM) Specimen Performing Laboratory PS360 Narrative Patient Name: SHIRLEY GOETZ Date of :1930 Procedure: XRAY WRIST 2 VIEWS LT Date of Service: 06/23/2018 EXAM: XRAY WRIST 2 VIEWS LT INDICATION: left wrist pain COMPARISON(S): None. FINDINGS: Diffuse osteopenia is present. 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 Old scaphoid fracture may be present. Moderately severe degenerative changes first carpometacarpal joint. No acute fractures detected. Mild left wrist swelling. IMPRESSION: Questionable old scaphoid fracture as margins appear sclerotic. Diffuse osteopenia is present. Finalized by: Jose Jacobson MD on 06/24/2018 8:13 AM Patient/Procedure Information: DWAINE MRN/ANNA: [id number] Order Number: [id number] Accession Number: [id number] Ordering Provider: JOSÉ MIGUEL THOMAS Authorizing Provider: JOSÉ MIGUEL THOMAS Procedure Note Interface, Radiantres - 06/24/2018 8:15 AM CDT Patient Name: SHIRLEY GOETZ Date of : 1930 Procedure: XRAY WRIST 2 VIEWS LT Date of Service: 06/23/2018 EXAM: XRAY WRIST 2 VIEWS LT INDICATION: left wrist pain COMPARISON(S): None. FINDINGS: Diffuse osteopenia is present. 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 Old scaphoid fracture may be present. Moderately severe degenerative changes first carpometacarpal joint. No acute fractures detected. Mild left wrist swelling. IMPRESSION: Questionable old scaphoid fracture as margins appear sclerotic. Diffuse osteopenia is present. Finalized by: Jose Jacobson MD on 06/24/2018 8:13 AM Patient/Procedure Information: DWAINE MRN/ANNA: [id number] Order Number: [id number] Accession Number: [id number] Ordering Provider: JOSÉ MIGUEL THOMAS Authorizing Provider: JOSÉ MIGUEL THOMAS XRAY C-ARM IN OR (06/23/2018 2:27 PM) Specimen Performing Laboratory PS360 Narrative Patient Name: SHIRLEY GOETZ Date of :1930 Procedure: XRAY C-ARM IN OR Date of Service: 06/23/2018 EXAM: XRAY C-ARM IN OR INDICATION: Left hip pinning COMPARISON: Radiograph 06/22/2018. TECHNIQUE: Saved fluoroscopic images from the procedure support. Fluoroscopic time: 37 seconds IMPRESSION: Fluoroscopic assistance provided for procedure support. FINDINGS: 3 submitted fluoroscopic images of the left hip. There are 3 cannulated screws traversing the femoral neck. Finalized by: Jose Jacobson MD on 06/24/2018 8:12 AM Patient/Procedure Information: [facility] MRN/ANNA: [id number] Order Number: [id number] Accession Number: [id number] Ordering Provider: JOSÉ MIGUEL THOMAS Authorizing Provider: JOSÉ MIGUEL THOMAS Procedure Note Interface, Radiantres - 06/24/2018 8:14 AM CDT Patient Name: SHIRLEY GOETZ Date of : 1930 Procedure: XRAY C-ARM IN OR Date of Service: 06/23/2018 EXAM: XRAY C-ARM IN OR INDICATION: Left hip pinning COMPARISON: Radiograph 06/22/2018. TECHNIQUE: Saved fluoroscopic images from the procedure support. Fluoroscopic time: 37 seconds IMPRESSION: Fluoroscopic assistance provided for procedure support. FINDINGS: 3 submitted fluoroscopic images of the left hip. There are 3 cannulated screws traversing the femoral neck. Finalized by: Jose Jacobson MD on 06/24/2018 8:12 AM Patient/Procedure Information: [facility] MRN/ANNA: [id number] Order Number: [id number] Accession Number: [id number] Ordering Provider: JOSÉ MIGUEL THOMAS Authorizing Provider: JOSÉ MIGUEL THOMAS GLUCOSE BY METER, POCT (06/23/2018 11:39 AM) Component Value Ref Range Glucose POC 134 (H) 70 - 100 mg/dL Specimen Performing Laboratory Blood [facility] [address] [place] [address] LAB ONLY-COMPLETE BLOOD COUNT WITH DIFFERENTIAL (06/23/2018 6:58 AM) Component Value Ref Range WBC 9.5 4.0 - 11.0 K/uL RBC 4.09 3.80 - 5.30 M/uL Hemoglobin 11.5 11.5 - 15.8 g/dL Hematocrit 34.4 (L) 35.0 - 45.0 % MCV 84.1 80.0 - 98.0 fL MCH 28.1 25.5 - 34.0 pg MCHC 33.4 31.5 - 36.5 g/dL RDW-CV 14.8 11.5 - 15.5 % RDW-SD 44.7 35.5 - 50.0 fl Platelet Count 207 140 - 400 K/uL MPV 9.6 8.5 - 12.0 fL Seg Neut Absolute 6.2 1.8 - 8.0 K/uL Lymphocytes Absolute 2.1 0.8 - 4.1 K/uL Monocytes Absolute 0.8 0.0 - 1.0 K/uL Eosinophils Absolute 0.3 0.0 - 0.7 K/uL Basophil Absolute 0.0 0.0 - 0.2 K/uL Immature Granulocyte Absolute 0.02 0.00 - 0.06 K/uL Neutrophils Abs. (Segs and Bands) 6200 /uL Neutrophils Percent 65.2 % Lymphocytes Percent 22.0 % Monocytes Percent 8.8 % Immature Granulocyte Percent 0.2 % Eosinophils Percent 3.6 % Basophil Percent 0.2 % Specimen Performing Laboratory Blood [facility] [address] [place] [address] COMPLETE BLOOD COUNT WITH DIFFERENTIAL (06/23/2018 6:58 AM) Specimen Performing Laboratory Blood Narrative The following orders were created for panel order COMPLETE BLOOD COUNT WITH DIFFERENTIAL. Procedure Abnormality Status --------- ------ LAB ONLY-COMPLETE BLOOD ...[[id number]]AbnormalFinal result Please view results for these tests on the individual orders. BASIC METABOLIC PANEL (06/23/2018 6:58 AM) Component Value Ref Range Glucose 142 (H) 70 - 100 mg/dL BUN 16 6 - 22 mg/dL Creatinine 0.73 0.60 - 1.10 mg/dL BUN/Creatinine Ratio 21.9 10.0 - 25.0 Sodium 135 135 - 145 meq/L Potassium 3.9 3.5 - 5.3 meq/L Chloride 103 99 - 110 meq/L CO2 22 (L) 23 - 32 meq/L Anion Gap with K 14 6 - 20 meq/L Calcium 8.8 8.5 - 10.5 mg/dL Age 87 Years eGFR Non- 76 >=60 mL/min/1.73m2 eGFR >90 >=60 mL/min/1.73m2 Comment: The estimated Glomerular Filtration Rate (eGFR) is calculated using the Abbreviated Modification of Diet in Renal Disease (MDRD) equation.The eGFR is reported out in mL/min. per 1.73 meter squared units. The National Kidney Foundation action value for patients without a diagnosis of chronic kidney disease is a eGFR of < 60 mL/min per 1.73M2. The National Kidney Foundation stages listed below apply to patients with a diagnosis of chronic kidney disease (defined as either kidney damage or eGFR < 60 mL/min/1.73 m2 for 3 months).Kidney da mage is defined as pathologic abnormalities or markers of damage, including abnormalities in blood or urine tests or imaging studies.These stages apply to adults.No standardized classification has yet been established for pediatric patients. Stage eGFR in ml/min per 1.73M2 1 Kidney abnormality with normal or increased eGFR >or=90 2 Kidney abnormality with mild decreased eGFR 60-89 3 Moderately decreasedeGFR 30-59 4 Severely decreased eGFR 15-29 5 Kidney failure <15 The eGFR varies with age, sex, race and body size and normally decreases with age. Specimen Performing Laboratory Blood [facility] [address] [place] [address] GLUCOSE BY METER, POCT (06/23/2018 6:09 AM) Component Value Ref Range Glucose POC 155 (H) 70 - 100 mg/dL Specimen Performing Laboratory Blood [facility] [address] [place] [address] EKG (06/22/2018 9:33 PM) Component Value Ref Range EKG [address] [address] Test Date:2018-06-22 Pat Name: SHIRLEY GOETZ Department: [facility] Room: Critical access hospital Gender: Female Kennel Hand: LEVI :1930 Requested By: BRAXTON MONTELONGO Order Number: [id number] MD: Leonardo Roche Measurements IntervalsAxis Rate: 117P: OK: 0QRS: -8 QRSD: 114T: 186 QT: 362 QTc:506 Interpretive Statements ATRIAL FLUTTER/TACHYCARDIA WITH RAPID VENTRICULAR RESPONSE MODERATE INTRAVENTRICULAR CONDUCTION DELAY ST DEVIATION AND MODERATE T-WAVE ABNORMALITY, PROBABLY RATE RELATED Compared to ECG 08/19/2015 11:29:39 Sinus rhythm no longer present Electronically Signed On 06-23-2018 7:09:57 CDT by Bobby GLUCOSE BY METER, POCT (06/22/2018 8:56 PM) Component Value Ref Range Glucose POC 218 (H) 70 - 100 mg/dL Specimen Performing Laboratory Blood [facility] [address] [place] [address] PTT (06/22/2018 6:36 PM) Component Value Ref Range APTT 24.0 23.0 - 35.0 secs Specimen Performing Laboratory Blood [facility] [address] [place] [address] PROTIME/INR (06/22/2018 6:36 PM) Component Value Ref Range Protime 10.8 9.1 - 12.0 secs INR 1.0 0.9 - 1.1 Specimen Performing Laboratory Blood [facility] [address] [place] [address] Narrative INR Recommended Therapeutic Range: Stable oral anticoagulation 2.0-3.5 LAB ONLY-COMPLETE BLOOD COUNT WITH DIFFERENTIAL (06/22/2018 6:36 PM) Component Value Ref Range WBC 10.2 4.0 - 11.0 K/uL RBC 4.48 3.80 - 5.30 M/uL Hemoglobin 12.5 11.5 - 15.8 g/dL Hematocrit 37.1 35.0 - 45.0 % MCV 82.8 80.0 - 98.0 fL MCH 27.9 25.5 - 34.0 pg MCHC 33.7 31.5 - 36.5 g/dL RDW-CV 14.8 11.5 - 15.5 % RDW-SD 43.6 35.5 - 50.0 fl Platelet Count 251 140 - 400 K/uL MPV 9.4 8.5 - 12.0 fL Seg Neut Absolute 7.1 1.8 - 8.0 K/uL Lymphocytes Absolute 2.0 0.8 - 4.1 K/uL Monocytes Absolute 1.0 0.0 - 1.0 K/uL Eosinophils Absolute 0.1 0.0 - 0.7 K/uL Basophil Absolute 0.0 0.0 - 0.2 K/uL Immature Granulocyte Absolute 0.03 0.00 - 0.06 K/uL Neutrophils Abs. (Segs and Bands) 7100 /uL Neutrophils Percent 69.1 % Lymphocytes Percent 19.8 % Monocytes Percent 9.6 % Immature Granulocyte Percent 0.3 % Eosinophils Percent 1.0 % Basophil Percent 0.2 % Specimen Performing Laboratory Blood [facility] [address] [place] [address] BASIC METABOLIC PANEL (06/22/2018 6:36 PM) Component Value Ref Range Glucose 123 (H) 70 - 100 mg/dL BUN 17 6 - 22 mg/dL Creatinine 0.79 0.60 - 1.10 mg/dL BUN/Creatinine Ratio 21.5 10.0 - 25.0 Sodium 134 (L) 135 - 145 meq/L Potassium 3.7 3.5 - 5.3 meq/L Chloride 99 99 - 110 meq/L CO2 24 23 - 32 meq/L Anion Gap with K 15 6 - 20 meq/L Calcium 9.3 8.5 - 10.5 mg/dL Age 87 Years eGFR Non- 69 >=60 mL/min/1.73m2 eGFR 84 >=60 mL/min/1.73m2 Comment: The estimated Glomerular Filtration Rate (eGFR) is calculated using the Abbreviated Modification of Diet in Renal Disease (MDRD) equation.The eGFR is reported out in mL/min. per 1.73 meter squared units. The National Kidney Foundation action value for patients without a diagnosis of chronic kidney disease is a eGFR of < 60 mL/min per 1.73M2. The National Kidney Foundation stages listed below apply to patients with a diagnosis of chronic kidney disease (defined as either kidney damage or eGFR < 60 mL/min/1.73 m2 for 3 months).Kidney da mage is defined as pathologic abnormalities or markers of damage, including abnormalities in blood or urine tests or imaging studies.These stages apply to adults.No standardized classification has yet been established for pediatric patients. Stage eGFR in ml/min per 1.73M2 1 Kidney abnormality with normal or increased eGFR >or=90 2 Kidney abnormality with mild decreased eGFR 60-89 3 Moderately decreasedeGFR 30-59 4 Severely decreased eGFR 15-29 5 Kidney failure <15 The eGFR varies with age, sex, race and body size and normally decreases with age. Specimen Performing Laboratory Blood [facility] [facility] [address] [place] [address] COMPLETE BLOOD COUNT WITH DIFFERENTIAL (06/22/2018 6:36 PM) Specimen Performing Laboratory Blood Narrative The following orders were created for panel order COMPLETE BLOOD COUNT WITH DIFFERENTIAL. Procedure Abnormality Status --------- ------ LAB ONLY-COMPLETE BLOOD ...[[id number]]Final result Please view results for these tests on the individual orders. in this encounter Visit Diagnoses Diagnosis Hip fracture requiring operative repair, left, closed, initial encounter - Primary Hip fracture Closed fracture of unspecified part of neck of femur in this encounter Administered Medications Medication Order MAR Action Action Date Dose Rate Site acetaminophen (TYLENOL) tablet 650 mg Given 06/26/2018 00:00 CDT 650 mg 650 mg, Oral, Every six hours, First dose on 06/23/18 at 1800, Until Discontinued, Post - Op, Total dose of acetaminophen from all acetaminophen containing products should not exceed 4 grams (4000 mg) per day. Given 06/26/2018 05:17 CDT 650 mg Given 06/26/2018 11:46 CDT 650 mg aspirin (ECOTRIN) enteric coated tablet 325 mg Given 06/24/2018 09:23 CDT 325 mg 325 mg, Oral, Daily, First dose on 06/24/18 at 0900, Until Discontinued, Post - Op Given 06/25/2018 08:38 CDT 325 mg Given 06/26/2018 09:40 CDT 325 mg dilTIAZem (CARDIZEM CD) extended release capsule Given 06/24/2018 09:23 CDT 300 mg 300 mg 300 mg, Oral, Daily, First dose on 06/23/18 at 0900, Until Discontinued, Swallow capsule whole. Do not crush, chew or open. Given 06/25/2018 08:38 CDT 300 mg Given 06/26/2018 09:40 CDT 300 mg HYDROcodone-acetaminophen (NORCO) 5-325 mg Given 06/25/2018 21:36 CDT 1 tablet tablet 1 tablet 1 tablet, Oral, Every six hours prn, Starting 06/24/18 at 0947, Until Discontinued, severe pain hydrOXYzine (ATARAX) tablet 25 mg Given 06/26/2018 00:01 CDT 25 mg 25 mg, Oral, Every six hours prn, Starting 06/23/18 at 1605, Until Discontinued, other (Specify), if oxycodone ineffective for moderate pain, Post - Op, May give 30 minutes after oxycodone dose if oxycodone ineffective for moderate pain lactated ringers IV solution New Bag 06/24/2018 01:26 CDT 1,000 mL 75 mL/hr 1,000 mL, IV, at 75 mL/hr, Continuous, Starting 06/24/18 at 0010, Until Discontinued, 1,000 mL, Post - Op levothyroxine tablet 125 mcg Given 06/24/2018 06:18 CDT 125 mcg 125 mcg, Oral, One time a day before breakfast, First dose on 06/23/18 at 0700, Until Discontinued Given 06/25/2018 05:42 CDT 125 mcg Given 06/26/2018 05:17 CDT 125 mcg lisinopril (PRINIVIL, ZESTRIL) tablet 2.5 mg Given 06/26/2018 09:41 CDT 2.5 mg 2.5 mg, Oral, Daily, First dose on Sun06/26/18 at 0900, Until Discontinued NIFEdipine (PROCARDIA XL) SR tablet (24 hr) 30 mg Given 06/24/2018 09:23 CDT 30 mg 30 mg, Oral, Daily, First dose on 06/23/18 at 0900, Until Discontinued, Tablet should not be crushed or chewed. Given 06/25/2018 08:38 CDT 30 mg Given 06/26/2018 09:40 CDT 30 mg ondansetron (ZOFRAN ODT) dispersible tablet 4 mg Given 06/23/2018 18:08 CDT 4 mg 4 mg, Oral, Every six hours prn, Starting 06/23/18 at 1605, Until Discontinued, nausea, vomiting, Post - Op, Give sublingual Step #1 - Follow Adult Nausea and Vomiting Treatment Orders Post Op Patients: Start with Step #1 - if Ondansetron (Zofran) was NOT given before or during surgery Start with Step #2 - if Ondansetron (Zofran) was given before or during surgery Non Surgical Patients: Start with Step #1 See other MAR entry for IV route pantoprazole (PROTONIX) enteric coated tablet 40 Given 06/24/2018 06:18 CDT 40 mg mg 40 mg, Oral, One time a day before breakfast, First dose on Sun06/24/18 at 0600, Until Discontinued, Post - Op, Tablet should be swallowed whole and not be divided, crushed or chewed. Given 06/25/2018 05:42 CDT 40 mg Given 06/26/2018 05:17 CDT 40 mg polyethylene glycol (MIRALAX) packet 1 packet Given 06/24/2018 09:27 CDT 1 packet 1 packet, Oral, Daily, First dose on 06/24/18 at 0900, Until Discontinued, Post - Op, Hold if loose stools Given 06/25/2018 08:38 CDT 1 packet Given 06/26/2018 09:39 CDT 1 packet senna-docusate sodium (SENOKOT-S;PERICOLACE) Given 06/25/2018 08:37 CDT 1 tablet tablet 1 tablet 1 tablet, Oral, Two times a day, First dose on 06/23/18 at 2100, Until Discontinued, Post - Op, Hold if loose stools Given 06/25/2018 20:51 CDT 1 tablet Given 06/26/2018 09:40 CDT 1 tablet simvastatin (ZOCOR) tablet 20 mg Given 06/23/2018 20:55 CDT 20 mg 20 mg, Oral, Bedtime, First dose on 06/22/18 at 2100, Until Discontinued Given 06/24/2018 21:42 CDT 20 mg Given 06/25/2018 20:50 CDT 20 mg sodium chloride 0.9% flush (adult) 10 mL Given 06/24/2018 09:30 CDT 10 mL 10 mL, IV, Two times a day and prn, First dose on 06/22/18 at 2100, Until Discontinued, 10 mL, Flush IV line as scheduled and as often as necessary before and after meds. Given 06/24/2018 21:43 CDT 10 mL traMADol (ULTRAM) tablet 25-50 mg Given 06/26/2018 02:06 CDT 50 mg 25-50 mg, Oral, Every six hours, First dose on 06/23/18 at 1610, Until Discontinued, Post - Op, Alternate with Acetaminophen for patients 65 years of age and greater. Given 06/26/2018 09:41 CDT 50 mg Given 06/26/2018 14:40 CDT 50 mg Medication Order MAR Action Action Date Dose Rate Site acetaminophen (TYLENOL) tablet 650 mg Given 06/23/2018 15:29 CDT 650 mg 650 mg, Oral, Every four hours prn, Starting 06/22/18 at 1827, Until 06/23/18 at 1609, mild pain, If inadequate response in 60 minutes, may proceed to next choice option or if no other options, contact provider. acetaminophen (TYLENOL) tablet 650 mg Given 06/23/2018 17:30 CDT 650 mg 650 mg, Oral, Every six hours, First dose on 06/23/18 at 1800, Until Discontinued, Post - Op, Alternating with tramadol (Ultram) ceFAZolin (ANCEF) in 0.9% sodium chloride 50 mL Given 06/23/2018 14:00 CDT 2, 000 mg IV piggyback 2,000 mg 2,000 mg, IV, One time, 1 dose, 06/23/18 at 1445, 50 mL ceFAZolin (ANCEF) in 0.9% sodium chloride 50 mL Given 06/23/2018 20:54 CDT 2, 000 mg IV piggyback 2,000 mg 2,000 mg, IV, Every eight hours, 2 doses, First dose on 06/23/18 at 2000, Last dose on Sun06/24/18 at 0400, 50 mL, Post - Op, Core measure: discontinue antibiotics within 24 hours of anesthesia end time Given 06/24/2018 04:06 CDT 2,000 mg fentaNYL 100 mcg/2 mL preservative free injection Given 06/23/2018 15:12 CDT 50 mcg solution 25-50 mcg 25-50 mcg, IV, PRN per parameter, Starting 06/23/18 at 1147, Until 06/23/18 at 1609, severe pain, 2 mL, PACU, Administer 25-50 mcg IV every 10 minutes as needed per 0-10 Pain Scale as appropriate. Document TOTAL dose administered - maximum 50 mcg. The ordered dose of this medication is intended to be a cumulative dose for PACU AND Recovery. Any medication needed above the range in this order requires a phone call to the MD. hydroCHLOROthiazide capsule 12.5 mg Given 06/24/2018 09:24 CDT 12.5 mg 12.5 mg, Oral, Every morning, First dose on 06/23/18 at 0900, Until Discontinued Given 06/25/2018 08:38 CDT 12.5 mg lactated ringers IV solution New Bag/Tubing 06/23/2018 13:10 CDT 25 mL/hr IV, at 25 mL/hr, Continuous, Starting 06/23/18 at 1405, Until 06/23/18 at 1441, 1,000 mL, Pre - Op Now lactated ringers IV solution New Bag 06/23/2018 16:39 CDT 1,000 mL 125 mL/hr 1,000 mL, IV, at 125 mL/hr, Continuous, Starting 06/23/18 at 1610, Until 06/24/18 at 0009, 1,000 mL, Post - Op, Start after Lactated Ringers from operating room infused morphine injection solution (conc: 2 mg/mL) 2 mg Given 06/23/2018 05:07 CDT 2 mg 2 mg, IV, Every four hours prn, Starting 06/22/18 at 1818, Until 06/24/18 at 0947, pain, 1 mL Given 06/23/2018 19:30 CDT 2 mg oxyCODONE (OXY-IR) tablet 5-10 mg Given 06/23/2018 17:31 CDT 10 mg 5-10 mg, Oral, Every four hours prn, Starting [place] 06/23/18 at 1605, Until 06/24/18 at 0903, moderate pain, Post - Op Given 06/24/2018 00:07 CDT 5 mg Given 06/24/2018 06:17 CDT 5 mg sodium chloride 0.9% IV solution New Bag 06/22/2018 18:06 CDT 50 mL/hr IV, at 50 mL/hr, Continuous, Starting 06/22/18 at 1905, Until [place] 06/23/18 at 1609, 1,000 mL sodium phosphates (FLEET) enema 1 enema Given 06/26/2018 14:31 CDT 1 enema 1 enema, Rectal, One time, 1 dose, 06/26/18 at 1525, 133 mL, Using more than one Fleet enema in 24 hours can be harmful due to the phosphate contents of the enema. in this encounter
[2018-07-09] MEDS: Simvastatin 20 MG Tab PO SCH (19:50)
[2018-07-09] MEDS: traZODone 50 MG Tab PO PRN (19:56)
[2018-07-10] MEDS: Levothyroxine 100 MCG Tab PO SCH (06:35)
[2018-07-10] MEDS: Levothyroxine 25 MCG Tab PO SCH (06:35)
[2018-07-10] MEDS: Ascorbic Acid 500 MG Tab PO SCH (08:00)
[2018-07-10] MEDS: metFORMIN 1,000 MG Tab PO SCH (08:01)
[2018-07-10] MEDS: Aspirin 325 MG Tab.EC PO SCH (08:01)
[2018-07-10] MEDS: Calcium Carbonate/Vitamin D3 1500 MG-400 Units Tab PO SCH (08:01)
[2018-07-10] MEDS: Lisinopril 2.5 MG Tab PO SCH (08:03)
[2018-07-10] MEDS: Diltiazem 180 MG Cap.CD PO SCH (08:03)
[2018-07-10 08:04] VITALS: BP 112/78
[2018-07-10] MEDS: Polyethylene Glycol 3350 Powder 17 GM Packet PO SCH (08:04)
[2018-07-10] MEDS: VITAMIN E 100 UNIT PO SCH (08:04)
== END 2018-07-10 12:50 | disposition home or self-care (01) | DRG 561 ==
LOC: LB.MS 14:49 → UNDOADMIN 14:49 → LB.MS 16:40
PROVIDERS: ADMIT Family Medicine; ATTEND Family Medicine
DX: S72.402D Unspecified fracture of lower end of left femur, subsequent encounter for closed fracture with routine healing (principal); Z98.890 Other specified postprocedural states; R53.1 Weakness; R52 Pain, unspecified; Z66 Do not resuscitate; I10 Essential (primary) hypertension; E78.00 Pure hypercholesterolemia, unspecified; E11.9 Type 2 diabetes mellitus without complications; E03.9 Hypothyroidism, unspecified; H54.7 Unspecified visual loss; Z79.82 Long term (current) use of aspirin; Z79.84 Long term (current) use of oral hypoglycemic drugs
CPT/HCPCS: 36415; 80053; 82962; 84443; 85025; 86580; 97110-GP; 97116-GP; 97161-GP; 97165-GO; 97530-GO; 97530-GP; 97535-GO; A9270-GY

== ENCOUNTER 2019-05-01 15:47 | Emergency (ER) | payer MEDICARE, BC ==
[2019-05-01 16:02] VITALS: BP 121/70
--- NOTE | 2019-05-01 17:36 | EDM.PDOC ---
ED HPI GENERAL MEDICAL PROBLEM - General Chief Complaint: Upper Extremity Injury/Pain Stated Complaint: fall Time Seen by Provider: 05/01/19 16:00 Source of Information: Reports: Patient History Limitations: Reports: No Limitations - History of Present Illness INITIAL COMMENTS - FREE TEXT/NARRATIVE: This is a 88yo F here for left wrist pain. She fell carrying a gas tank and landed on her outstretched hand. She has had pain since the fall today. Onset: Sudden Duration: Constant Location: Reports: Upper Extremity, Left Quality: Reports: Ache Severity: Mild Improves with: Reports: None Worsens with: Reports: Movement Context: Reports: Activity Treatments PERINATAL EDUCATOR: Reports: Cold Therapy Left Wrist Pain Score (Numeric/FACES): 3 - Related Data Allergies Allergy/AdvReac Type Severity Reaction Status Date / Time No Known Allergies Allergy Verified 06/26/18 15:46 Home Meds: Home Meds Ascorbic Acid [Vitamin C] 250 mg PO DAILY 06/11/15 [History] Calcium Carbonate/Vitamin D3 [Calcium 600 + D Tablet] 1 each PO DAILY 06/11/15 [ History] Simvastatin 20 mg PO BEDTIME 06/11/15 [History] metFORMIN [Glucophage] 1,000 mg PO BIDMEALS 06/11/15 [History] Vitamin E 400 unit PO DAILY 01/31/17 [History] Acetaminophen [Tylenol Extra Strength] 1,000 mg PO TID PRN 06/26/18 [History] Aspirin [Ecotrin EC] 325 mg PO DAILY 06/26/18 [History] Hydrocodone/Acetaminophen [Hydrocodon-Acetaminophen 5-325] 1 each PO Q6HR PRN [History] Lisinopril 2.5 mg PO DAILY 06/26/18 [History] traMADol [Ultram] 25 - 50 mg PO Q6H PRN 06/26/18 [History] Diltiazem [Dilacor XR] 360 mg PO DAILY #60 cap.er 07/10/18 [Rx] Levothyroxine 25 mcg PO ACBREAKFAST tablet 07/10/18 [Rx] Levothyroxine [Synthroid] 200 mcg PO ACBREAKFAST tablet 07/10/18 [Rx] Past Medical History HEENT History: Reports: Cataract, Impaired Vision Cardiovascular History: Reports: Afib, High Cholesterol, Hypertension Genitourinary History: Reports: None FINANCIAL SYSTEMS DIRECTOR History: Reports: Other FINANCIAL SYSTEMS DIRECTOR History: Hysterectomy Musculoskeletal History: Reports: Fracture Endocrine/Metabolic History: Reports: Diabetes, Type II, Hypothyroidism - Infectious Disease History Infectious Disease History: Reports: Chicken Pox, Measles, Mumps - Past Surgical History Cardiovascular Surgical History: Reports: None Female Surgical History: Reports: Hysterectomy Musculoskeletal Surgical History: Reports: Other (See Below) Other Musculoskeletal Surgeries/Procedures:: left hip pinning Social & Family History - Family History Family Medical History: Noncontributory Review of Systems - Review of Systems Review Of Systems: ROS reveals no pertinent complaints other than HPI. ED EXAM, GENERAL - Physical Exam Exam: See Below Exam Limited By: No Limitations General Appearance: Alert, WD/WN, No Apparent Distress Ears: Normal External Exam Nose: Normal Inspection Throat/Mouth: Normal Inspection Head: Atraumatic, Normocephalic Neck: Normal Inspection Respiratory/Chest: No Respiratory Distress Cardiovascular: Normal Peripheral Pulses Peripheral Pulses: 2+: Dorsalis Pedis (L), Dorsalis Pedis (R) Extremities: Joint Swelling, Other (wrist pain) Psychiatric: Normal Affect, Normal Mood Skin Exam: Warm, Dry, Intact, Other (scrapes of right fingers) ED TRAUMA EXTREMITY PROCEDURES - Splinting Left Upper Extremity Pre-Procedure NV Status: Normal Post-Procedure NV Status: Normal Splint Material: Fiberglass Splint Design: Volar Applied & Form Fitted By: Provider Provider Post-Splint Application NV Check: NV Status Normal, Good Position Complications: No Progress/Comments: Consulted close f/u with practitioner. Rtc for placement of case as needed. Course - Vital Signs Last Recorded V/S: Last Vital Signs Temp 36.6 C 05/01/19 16:00 Pulse 107 H 05/01/19 16:00 Resp 16 05/01/19 16:00 BP 121/70 05/01/19 16:00 Pulse Ox 96 05/01/19 16:00 - Orders/Labs/Meds Orders: Active Orders 24 hr Category Date Time Status Forearm 2V Lt [CR] Stat Exams 05/01/19 16:02 Taken Departure - Departure Time of Disposition: 17:20 Disposition: Home, Self-Care 01 Condition: Good Clinical Impression: Closed Colles' fracture - Discharge Information Instructions: RICE Therapy for Routine Care of Injuries, [id number], Cast or Splint Care, Adult, [id number] Referrals: PCP,None [Primary Care Provider] - Forms: ED Department Discharge Additional Instructions: Take Motrin or Tylenol for the pain, these can also be alternated for better pain relief. Rest the wrist, use ice, and keep the arm elevated to decrease the pain. Return next week for the application of the cast. Follow-up in the clinic or the ER if you have any changes or need any further assistance. - Problem List & Annotations (1) Closed left radial fracture SNOMED Code(s): 898180110 Code(s): S52.92XA - UNSP FRACTURE OF LEFT FOREARM, INIT FOR CLOS FX Status : Acute Priority: High Qualifiers: Encounter type: initial encounter Radius location: distal Fracture morphology: Colles' Qualified Code(s): S52.532A - Colles' fracture of left radius, initial encounter for closed fracture - Problem List Review Problem List Initiated/Reviewed/Updated: Yes - My Orders Last 24 Hours: My Active Orders 05/01/19 16:02 Forearm 2V Lt [CR] Stat - Assessment/Plan Last 24 Hours: My Active Orders 05/01/19 16:02 Forearm 2V Lt [CR] Stat Plan: Counseled on supportive care and conservative management. Discussed care of splint and use and f/u in clinic for casting as needed. F/u if any concerns of NV compromise(discussed with patient signs and symptoms).
--- NOTE | 2019-05-02 08:28 | CR ---
DATE OF SERVICE: 05/01/19 CLINICAL DATA: fall LEFT FOREARM: There is a mildly impacted fracture through the distal radius. No other acute abnormalities. [id number] [facility]
== END 2019-05-01 17:00 | disposition home or self-care (01) ==
LOC: LB.ED 15:47
DX: S52.532A Colles' fracture of left radius, initial encounter for closed fracture (principal); I10 Essential (primary) hypertension; I48.91 Unspecified atrial fibrillation; E11.9 Type 2 diabetes mellitus without complications; E78.00 Pure hypercholesterolemia, unspecified; E03.9 Hypothyroidism, unspecified; Z79.84 Long term (current) use of oral hypoglycemic drugs; Z79.899 Other long term (current) drug therapy; W19.XXXA Unspecified fall, initial encounter
CPT/HCPCS: 29125; 73090-LT; 99283

== ENCOUNTER 2019-12-11 05:57 | Observation (INO) | payer MEDICARE, BC ==
[2019-12-11] MEDS ORDERED: Acetaminophen/HYDROcodone 325-5 MG Tab PO PRN ×2 (07:57→08:03)
[2019-12-11] MEDS ORDERED: Levothyroxine 25 MCG Tab PO SCH (08:00)
[2019-12-11] MEDS ORDERED: Levothyroxine 100 MCG Tab PO SCH (08:00)
--- NOTE | 2019-12-11 08:21 | EDM.PDOC ---
ED HPI GENERAL MEDICAL PROBLEM - General Chief Complaint: Back Pain or Injury Stated Complaint: Fall Time Seen by Provider: 12/11/19 07:00 Source of Information: Reports: Patient, Family History Limitations: Reports: No Limitations - History of Present Illness INITIAL COMMENTS - FREE TEXT/NARRATIVE: This is a 89yo F with a fall early this am around 2-3 am. She called her daughter at around 5 am as she didn't want to wake her too early. Patient notes she fell and has had sever lower back pain since the fall. She denies any recent falls or injuries. She has had a prior left hip fracture and pinning. Patient did note that she bumped her head as well but did not lose consciousness or have other injuries. She is able to ambulate with severe pain. Patient is stoic and did also ambulate in pain the last time she fractured her left femur. Onset: Sudden Duration: Hour(s):, Constant Location: Reports: Back Quality: Reports: Ache, Stabbing Severity: Severe Worsens with: Reports: Movement Associated Symptoms: Reports: No Other Symptoms - Related Data Allergies Allergy/AdvReac Type Severity Reaction Status Date / Time No Known Allergies Allergy Verified 06/26/18 15:46 Home Meds: Home Meds Ascorbic Acid [Vitamin C] 250 mg PO DAILY 06/11/15 [History] Calcium Carbonate/Vitamin D3 [Calcium 600 + D Tablet] 1 each PO DAILY 06/11/15 [ History] Simvastatin 20 mg PO BEDTIME 06/11/15 [History] metFORMIN [Glucophage] 1,000 mg PO BIDMEALS 06/11/15 [History] Vitamin E 400 unit PO DAILY 01/31/17 [History] Acetaminophen [Tylenol Extra Strength] 1,000 mg PO TID PRN 06/26/18 [History] Aspirin [Ecotrin EC] 325 mg PO DAILY 06/26/18 [History] Hydrocodone/Acetaminophen [Hydrocodon-Acetaminophen 5-325] 1 each PO Q6HR PRN [History] Lisinopril 2.5 mg PO DAILY 06/26/18 [History] traMADol [Ultram] 25 - 50 mg PO Q6H PRN 06/26/18 [History] Diltiazem [Dilacor XR] 360 mg PO DAILY #60 cap.er 07/10/18 [Rx] Levothyroxine 25 mcg PO ACBREAKFAST tablet 07/10/18 [Rx] Levothyroxine [Synthroid] 200 mcg PO ACBREAKFAST tablet 07/10/18 [Rx] Past Medical History HEENT History: Reports: Cataract, Impaired Vision Cardiovascular History: Reports: Afib, High Cholesterol, Hypertension Genitourinary History: Reports: None STATION EXAMINER History: Reports: Other STATION EXAMINER History: Hysterectomy Musculoskeletal History: Reports: Fracture Endocrine/Metabolic History: Reports: Diabetes, Type II, Hypothyroidism - Infectious Disease History Infectious Disease History: Reports: Chicken Pox, Measles, Mumps - Past Surgical History Cardiovascular Surgical History: Reports: None Female Surgical History: Reports: Hysterectomy Musculoskeletal Surgical History: Reports: Other (See Below) Other Musculoskeletal Surgeries/Procedures:: left hip pinning Social & Family History - Family History Family Medical History: Noncontributory - Tobacco Use Smoking Status *Q: Never Smoker ED ROS GENERAL - Review of Systems Review Of Systems: Comprehensive ROS is negative, except as noted in HPI. ED EXAM,LOWER BACK PAIN/INJURY - Physical Exam Exam: See Below Exam Limited By: No Limitations General Appearance: Alert, WD/WN, Mild Distress Eye Exam: Bilateral Eye: EOMI, PERRL Ears: Normal External Exam Nose: Normal Inspection Throat/Mouth: Normal Inspection Head: Atraumatic, Normocephalic Neck: Normal Inspection Respiratory/Chest: No Respiratory Distress, Lungs Clear, Normal Breath Sounds Cardiovascular: Normal Peripheral Pulses, Regular Rate, Rhythm GI/Abdominal: Normal Bowel Sounds Back Exam: Muscle Spasm, Paraspinal Tenderness, Vertebral Tenderness Extremities: Normal Inspection Neurological: Alert, Normal Mood/Affect, Oriented x 3 Psychiatric: Normal Affect, Normal Mood Skin Exam: Warm, Dry, Intact Course - Vital Signs Last Recorded V/S: Last Vital Signs Temp 36.4 C 12/11/19 05:57 Pulse 117 H 12/11/19 05:57 Resp 20 12/11/19 05:57 BP 151/84 H 12/11/19 05:57 Pulse Ox 94 L 12/11/19 05:57 - Orders/Labs/Meds Orders: Active Orders 24 hr Category Date Time Status Admission Status [Patient Status] [ADT] Routine ADT 12/11/19 07:58 Active Patient Status [ADT] Routine ADT 12/11/19 07:57 Ordered Oxygen Therapy [RC] PRN Care 01/23/20 07:57 Ordered Up With Assistance [RC] ASDIRECTED Care 12/11/19 07:57 Ordered VTE/DVT Education [RC] Per Unit Routine Care 12/11/19 07:57 Ordered Vital Signs [RC] Q4H Care 12/11/19 07:57 Ordered OT Evaluation and Treatment [CONS] Routine Cons 12/11/19 07:57 Ordered PT Evaluation and Treatment [CONS] Routine Cons 12/11/19 07:57 Ordered Regular Diet [DIET] Diet 12/11/19 Breakfast Ordered Lumbar Spine 2 or 3V [CR] Stat Exams 12/11/19 06:08 Taken Pelvis 1V or 2V [CR] Stat Exams 12/11/19 06:08 Taken Acetaminophen [Tylenol Extra Strength] Med 12/11/19 08:03 Ordered 1,000 mg PO TID PRN Acetaminophen/HYDROcodone [[place] 325-5 MG] Med 12/11/19 08:03 Ordered 1 each PO Q6HR PRN Acetaminophen/HYDROcodone [[place] 325-5 MG] Med 12/11/19 07:57 Ordered 1 tab PO Q4H PRN Ascorbic Acid [Vitamin C] Med 12/12/19 08:00 Ordered 250 mg PO DAILY Aspirin [Ecotrin] Med 12/12/19 08:00 Ordered 81 mg PO DAILY Calcium Carbonate/Vitamin D3 [Calcium 600 + D Tablet] Med 12/12/19 08:00 Ordered 1 each PO DAILY Diltiazem [Dilacor XR] Med 12/12/19 08:00 Ordered 360 mg PO DAILY Levothyroxine [Synthroid] Med 12/12/19 07:00 Ordered 125 mcg PO ACBREAKFAST Simvastatin [Zocor] Med 12/11/19 20:00 Ordered 20 mg PO BEDTIME Vitamin E [Vitamin E] Med 12/12/19 08:00 Ordered 400 unit PO DAILY lisinopriL [Prinivil] Med 12/12/19 08:00 Ordered 2.5 mg PO DAILY metFORMIN [Glucophage] Med 12/11/19 17:00 Ordered 1,000 mg PO BIDMEALS Antiembolic Hose [OM.PC] Per Unit Routine Oth 12/11/19 08:00 Ordered Medication Orders Acetaminophen (Tylenol Extra Strength) 1,000 mg PO TID PRN PRN Reason: Pain Hydrocodone Bitart/Acetaminophen ([place] 325-5 Mg) 1 tab PO Q4H PRN PRN Reason: Pain (moderate 4-6) Hydrocodone Bitart/Acetaminophen ([place] 325-5 Mg) tab PO Q6HR PRN PRN Reason: Pain Meds: Medications Generic Name Dose Route Start Last Admin Trade Name Freq PRN Reason Stop Dose Admin Acetaminophen 1,000 mg 12/11/19 08:03 Tylenol Extra Strength PO TID PRN Pain Hydrocodone Bitart/Acetaminophen 1 tab 12/11/19 07:57 [place] 325-5 Mg PO Q4H PRN Pain (moderate 4-6) Hydrocodone Bitart/Acetaminophen tab 12/11/19 08:03 [place] 325-5 Mg PO Q6HR PRN Pain Departure - Departure Time of Disposition: 07:00 Disposition: Admitted As Inpatient 67 Condition: Fair Clinical Impression: Compression fracture of vertebral column Qualifiers: Encounter type: initial encounter Fracture of vertebra location: lumbar Lumbar vertebra fracture level: L1 Qualified Code(s): S32.010A - Wedge compression fracture of first lumbar vertebra, initial encounter for closed fracture Compression fracture of L3 vertebra Qualifiers: Encounter type: initial encounter Qualified Code(s): S32.030A - Wedge compression fracture of third lumbar vertebra, initial encounter for closed fracture - Discharge Information Referrals: PCP,None [Primary Care Provider] - Forms: ED Department Discharge Sepsis Event Note - Evaluation Sepsis Screening Result: No Definite Risk - Focused Exam Vital Signs: Vital Signs Temp Pulse Resp BP Pulse Ox 12/11/19 05:57 36.4 C 117 H 20 151/84 H 94 L Date Exam was Performed: 12/11/19 Time Exam was Performed: 08:15 - Problem List & Annotations (1) Compression fracture of L3 vertebra SNOMED Code(s): 736093298 Code(s): S32.030A - WEDGE COMPRESSION FRACTURE OF THIRD LUMBAR VERTEBRA, INIT Status: Acute Priority: High Current Visit: Yes Onset Date: ~ Qualifiers: Encounter type: initial encounter Qualified Code(s): S32.030A - Wedge compression fracture of third lumbar vertebra, initial encounter for closed fracture (2) Compression fracture of vertebral column SNOMED Code(s): 86247404 Code(s): M48.50XA - COLLAPSED VERTEBRA, NEC, SITE UNSP, INIT Status: Acute Priority: High Current Visit: Yes Onset Date: ~12/11/19 Qualifiers: Encounter type: initial encounter Fracture of vertebra location: lumbar Lumbar vertebra fracture level: L1 Qualified Code(s): S32.010A - Wedge compression fracture of first lumbar vertebra, initial encounter for closed fracture - Problem List Review Problem List Initiated/Reviewed/Updated: Yes - My Orders Last 24 Hours: My Active Orders 12/11/19 06:08 Lumbar Spine 2 or 3V [CR] Stat Pelvis 1V or 2V [CR] Stat 12/11/19 07:57 Patient Status [ADT] Routine Oxygen Therapy [RC] PRN Up With Assistance [RC] ASDIRECTED VTE/DVT Education [RC] Per Unit Routine Vital Signs [RC] Q4H OT Evaluation and Treatment [CONS] Routine PT Evaluation and Treatment [CONS] Routine Acetaminophen/HYDROcodone [[place] 325-5 MG] 1 tab PO Q4H PRN 12/11/19 07:58 Admission Status [Patient Status] [ADT] Routine 12/11/19 08:00 Antiembolic Hose [OM.PC] Per Unit Routine 12/11/19 08:03 Acetaminophen [Tylenol Extra Strength] 1,000 mg PO TID PRN Acetaminophen/HYDROcodone [[place] 325-5 MG] 1 each PO Q6HR PRN 12/11/19 17:00 metFORMIN [Glucophage] 1,000 mg PO BIDMEALS 12/11/19 20:00 Simvastatin [Zocor] 20 mg PO BEDTIME 12/11/19 Breakfast Regular Diet [DIET] 12/12/19 07:00 Levothyroxine [Synthroid] 125 mcg PO ACBREAKFAST 12/12/19 08:00 Ascorbic Acid [Vitamin C] 250 mg PO DAILY Aspirin [Ecotrin] 81 mg PO DAILY Calcium Carbonate/Vitamin D3 [Calcium 600 + D Tablet] 1 each PO DAILY Diltiazem [Dilacor XR] 360 mg PO DAILY Vitamin E [Vitamin E] 400 unit PO DAILY lisinopriL [Prinivil] 2.5 mg PO DAILY - Assessment/Plan Last 24 Hours: My Active Orders 12/11/19 06:08 Lumbar Spine 2 or 3V [CR] Stat Pelvis 1V or 2V [CR] Stat 12/11/19 07:57 Patient Status [ADT] Routine Oxygen Therapy [RC] PRN Up With Assistance [RC] ASDIRECTED VTE/DVT Education [RC] Per Unit Routine Vital Signs [RC] Q4H OT Evaluation and Treatment [CONS] Routine PT Evaluation and Treatment [CONS] Routine Acetaminophen/HYDROcodone [[place] 325-5 MG] 1 tab PO Q4H PRN 12/11/19 07:58 Admission Status [Patient Status] [ADT] Routine 12/11/19 08:00 Antiembolic Hose [OM.PC] Per Unit Routine 12/11/19 08:03 Acetaminophen [Tylenol Extra Strength] 1,000 mg PO TID PRN Acetaminophen/HYDROcodone [[place] 325-5 MG] 1 each PO Q6HR PRN 12/11/19 17:00 metFORMIN [Glucophage] 1,000 mg PO BIDMEALS 12/11/19 20:00 Simvastatin [Zocor] 20 mg PO BEDTIME 12/11/19 Breakfast Regular Diet [DIET] 12/12/19 07:00 Levothyroxine [Synthroid] 125 mcg PO ACBREAKFAST 12/12/19 08:00 Ascorbic Acid [Vitamin C] 250 mg PO DAILY Aspirin [Ecotrin] 81 mg PO DAILY Calcium Carbonate/Vitamin D3 [Calcium 600 + D Tablet] 1 each PO DAILY Diltiazem [Dilacor XR] 360 mg PO DAILY Vitamin E [Vitamin E] 400 unit PO DAILY lisinopriL [Prinivil] 2.5 mg PO DAILY Plan: Patient will require admission for pain management and likely eventual rehabilitation. PT/OT ordered for evaluation and management.
[2019-12-11] MEDS: Acetaminophen 500 MG Tab PO PRN ×2 (08:27→22:07)
[2019-12-11] MEDS ORDERED: Calcitonin (Salmon) Nasal Spray 3.7 ML Bottle NAS SCH (10:00)
--- NOTE | 2019-12-11 10:55 | CR ---
Date of Service: 12/11/19 Clinical Data: fall with pain LUMBAR SPINE: Comparison is made to a prior exam dated 03/18/09. There is diffuse osteopenia. There are partial compression fractures of the L1 and L3 vertebrae. There is approximately 40% loss of height at the L1 level and approximately 20% to 30% loss of height at the L3 level. These were not present on the prior exam. There is degenerative disk disease throughout the lower thoracic and lumbar spine with disk space narrowing at multiple levels. There is mild progression from the prior study. There is facet joint hypertrophy throughout the lumbar spine. There is calcification of the abdominal aorta. [id number] MTDD
--- NOTE | 2019-12-11 10:59 | CR ---
Date of Service: 12/11/19 Clinical Data: fall with pain AP PELVIS: Comparison is made to a prior exam dated 07/2018. The patient is status post internal fixation of the left hip. No change from the prior study. 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 There are degenerative changes involving the SI joints and symphysis pubis. No acute abnormalities. [id number] MTDD
[2019-12-11] MEDS: metFORMIN 1,000 MG Tab PO SCH (17:20)
[2019-12-11] MEDS: Acetaminophen/HYDROcodone 325-5 MG Tab **OWN MED PO PRN (19:03)
[2019-12-11] MEDS ORDERED: Simvastatin 20 MG Tab PO SCH (20:00)
[2019-12-12] MEDS: Acetaminophen/HYDROcodone 325-5 MG Tab **OWN MED PO PRN ×3 (06:05→21:55)
[2019-12-12] MEDS ORDERED: Levothyroxine 100 MCG Tab PO SCH (07:00)
[2019-12-12] MEDS ORDERED: Non-Formulary Medication 1 Each (Levothyroxine [Levothyroxine] 125 MCG) PO SCH (07:00)
[2019-12-12] MEDS ORDERED: Lisinopril 2.5 MG Tab PO SCH (08:00)
[2019-12-12] MEDS ORDERED: DILTIAZEM 360 MG PO SCH (08:00)
[2019-12-12] MEDS ORDERED: ASCORBIC ACID 250 MG PO SCH (08:00)
[2019-12-12] MEDS ORDERED: Aspirin 325 MG Tab.EC PO SCH (08:00)
[2019-12-12] MEDS: Ascorbic Acid 500 MG Tab PO SCH (08:13)
[2019-12-12] MEDS: OMEGA FISH OIL PO SCH (08:13)
[2019-12-12] MEDS: Levothyroxine 150 MCG Tab PO SCH (08:13)
[2019-12-12] MEDS: Pravastatin 40 MG Tab PO SCH (08:14)
[2019-12-12] MEDS: Diltiazem 180 MG Cap.CD PO SCH (08:14)
[2019-12-12] MEDS: Hydrochlorothiazide 12.5 MG Cap PO SCH (08:14)
[2019-12-12] MEDS: [UNRECOGNIZED DRUG - OTHER] PO SCH (08:15)
[2019-12-12] MEDS: metFORMIN 1,000 MG Tab PO SCH ×2 (08:15→16:58)
[2019-12-12] MEDS: Non-Formulary Medication 1 Each (Vitamin E [Vitamin E] 400 UNIT) PO SCH (08:15)
[2019-12-12] MEDS: CALCIUM CARBONATE PO SCH (08:15)
[2019-12-12] MEDS: VITAMIN D3 PO SCH (08:15)
[2019-12-12] MEDS: CALCITONIN NAS SCH (08:20)
--- NOTE | 2019-12-12 08:39 | PCM.PN ---
- General Info Date of Service: 12/12/19 Subjective Update: Patient states she has improved and doing well. She is up with the use of a walker which is new for her. Functional Status: Reports: Pain Controlled, Tolerating Diet, Ambulating (with walker) - Review of Systems General: Reports: No Symptoms HEENT: Reports: No Symptoms Pulmonary: Reports: No Symptoms Cardiovascular: Reports: No Symptoms Gastrointestinal: Reports: No Symptoms Genitourinary: Reports: No Symptoms Musculoskeletal: Reports: Back Pain Skin: Reports: No Symptoms Neurological: Reports: Difficulty Walking Psychiatric: Reports: No Symptoms - Patient Data Vitals - Most Recent: Last Vital Signs Temp 37.1 C 12/12/19 04:00 Pulse 120 H 12/12/19 08:14 Resp 18 12/12/19 04:00 BP 136/90 12/12/19 08:14 Pulse Ox 94 L 12/12/19 04:00 Weight - Most Recent: 60.838 kg I&O - Last 24 Hours: Intake & Output 12/11/19 12/12/19 12/12/19 22:59 06:59 14:59 Intake Total 500 Balance 500 Lab Results Last 24 Hours: Laboratory Results - last 24 hr 12/11/19 12/11/19 12/11/19 Range/Units 14:05 14:05 15:17 WBC 7.2 (4.0-11.0) K/uL RBC 3.98 (3.80-5.80) M/uL Hgb 11.1 L (11.5-16.5) g/dL Hct 33.4 L (37.0-47.0) % MCV 84 (76-96) fL MCH 27.9 (27.0-32.0) pg MCHC 33.2 (31.0-35.0) g/dL RDW 14.5 (11.0-16.0) % Plt Count 232 (150-500) K/uL MPV 8.9 (6.0-10.0) fL Neut % (Auto) 71.6 H (45.0-70.0) % Lymph % (Auto) 18.7 L (20.0-40.0) % [place] % (Auto) 7.8 (3.0-10.0) % Eos % (Auto) 1.8 (1.0-5.0) % Baso % (Auto) 0.1 (0.0-0.5) % Neut # (Auto) 5.17 (2.00-7.50) K/uL Lymph # (Auto) 1.35 L (1.50-4.00) K/uL [place] # (Auto) 0.56 (0.20-0.80) K/uL Eos # (Auto) 0.13 (0.04-0.40) K/uL Baso # (Auto) 0.01 L (0.02-0.10) K/uL Sodium 137 (136-145) mmol/L Potassium 4.1 (3.5-5.1) mmol/L Chloride 99 (98-107) mmol/L Carbon Dioxide 29.1 (21.0-32.0) mmol/L Anion Gap 13.0 (5.0-15.0) mmol/L BUN 16 (8-26) mg/dL Creatinine 0.91 (0.55-1.02) mg/dL Est Cr Clr Drug Dosing 33.80 mL/min Estimated GFR (MDRD) 58 L (>60) MLS/MIN BUN/Creatinine Ratio 17.6 (6-25) Glucose 154 H (74-100) mg/dL Calcium 9.4 (8.5-10.1) mg/dL Total Bilirubin 0.5 (0.0-1.0) mg/dL AST 26 (15-37) U/L ALT 24 (12-78) U/L Alkaline Phosphatase 71 (46-116) U/L Total Protein 7.7 (6.4-8.2) g/dL Albumin 3.3 L (3.4-5.0) g/dL Globulin 4.4 H (2.2-4.2) g/dL Albumin/Globulin Ratio 0.8 (0.8-2.0) TSH, Ultra Sensitive 0.293 L D (0.358-3.740) uIU/mL Urine Color Yellow Urine Appearance Cloudy (CLEAR) Urine pH 8.5 H (5.0-8.0) Ur Specific [place] 1.015 (1.003-1.030) Urine Protein Negative (NEGATIVE) mg/dL Urine Glucose (UA) Negative (NEGATIVE) mg/dL Urine Ketones Negative (NEGATIVE) mg/dL Urine Occult Blood Trace-intact H (NEGATIVE) Urine Nitrite Negative (NEGATIVE) Urine Bilirubin Negative (NEGATIVE) Urine Urobilinogen 0.2 (0.2-1.0) E.U./dL Ur Leukocyte Esterase Negative (NEGATIVE) Urine RBC 0-5 H /HPF Urine WBC 0-5 H /HPF Ur Squamous Epith Cells Few /HPF Amorphous Sediment Numerous /HPF Urine Bacteria Few /HPF Med Orders - Current: Current Medications Acetaminophen (Tylenol Extra Strength) 1,000 mg PO TID PRN PRN Reason: Pain Last Admin: 12/11/19 22:07 Dose: 1,000 mg Hydrocodone Bitart/Acetaminophen ([place] 325-5 Mg) 1 tab PO Q4H PRN PRN Reason: Pain (moderate 4-6) Last Admin: 12/12/19 06:05 Dose: 1 tab Ascorbic Acid (Vitamin C) 500 mg PO DAILY [facility] Last Admin: 12/12/19 08:13 Dose: 500 mg Aspirin (Halfprin) 81 mg PO DAILY [facility] Calcitonin [place] (Miacalcin Nasal [place]) 0 ml ALEKSANDR DAILY [facility] Last Admin: 12/12/19 08:20 Dose: 1 spray Diltiazem HCl (Cardizem Cd) 360 mg PO DAILY [facility] Last Admin: 12/12/19 08:14 Dose: 360 mg Hydrochlorothiazide (Hydrochlorothiazide) 12.5 mg PO DAILY [facility] Last Admin: 12/12/19 08:14 Dose: 12.5 mg Levothyroxine Sodium (Levothyroxine) 150 mcg PO DAILY [facility] Last Admin: 12/12/19 08:13 Dose: 150 mcg Lisinopril (Prinivil) 2.5 mg PO DAILY [facility] Metformin HCl (Glucophage) 1,000 mg PO BIDMEALS [facility] Last Admin: 12/12/19 08:15 Dose: 1,000 mg Non-Formulary Medication (Calcium Carbonate/Vitamin D3 [Calcium 600 + D Tablet] ) 1 each PO DAILY [facility] Last Admin: 12/12/19 08:15 Dose: 1 each Non-Formulary Medication (Vitamin E [Vitamin E]) 400 unit PO DAILY [facility] Last Admin: 12/12/19 08:15 Dose: 400 unit [place]-3 Fish Oil (1200mg) 1 each PO DAILY [facility] Last Admin: 12/12/19 08:13 Dose: 1 each Pravastatin Sodium (Pravachol) 40 mg PO DAILY [facility] Last Admin: 12/12/19 08:14 Dose: 40 mg Simvastatin (Zocor) 20 mg PO BEDTIME [facility] Discontinued Medications Hydrocodone Bitart/Acetaminophen ([place] 325-5 Mg) 1 tab PO Q4H PRN PRN Reason: Pain (moderate 4-6) Last Admin: 12/11/19 12:57 Dose: 1 tab Calcitonin [place] (Miacalcin Nasal [place]) 0 ml ALEKSANDR DAILY [facility] Levothyroxine Sodium (Synthroid) 100 mcg PO DAILY [facility] Last Admin: 12/11/19 11:04 Dose: 100 mcg Levothyroxine Sodium (Levothyroxine) 25 mcg PO DAILY [facility] Last Admin: 12/11/19 11:04 Dose: 25 mcg - Exam General: Alert, Oriented, Cooperative HEENT: Pupils Equal, Pupils Reactive, EOMI Neck: Supple Lungs: Clear to Auscultation, Normal Respiratory Effort Cardiovascular: Regular Rate, Regular Rhythm Back Exam: Muscle Spasm, Paraspinal Tenderness Sepsis Event Note - Evaluation Sepsis Screening Result: No Definite Risk - Focused Exam Vital Signs: Vital Signs Temp Pulse Pulse Resp BP BP Pulse Ox 12/12/19 08:14 120 H 136/90 12/12/19 04:00 37.1 C 119 H 18 154/92 H 94 L Date Exam was Performed: 12/12/19 Time Exam was Performed: 09:52 - Problem List & Annotations (1) Compression fracture of L3 vertebra SNOMED Code(s): 292668873 Code(s): S32.030A - WEDGE COMPRESSION FRACTURE OF THIRD LUMBAR VERTEBRA, INIT Status: Acute Priority: High Current Visit: Yes Onset Date: ~ Qualifiers: Encounter type: initial encounter Qualified Code(s): S32.030A - Wedge compression fracture of third lumbar vertebra, initial encounter for closed fracture (2) Compression fracture of vertebral column SNOMED Code(s): 88541672 Code(s): M48.50XA - COLLAPSED VERTEBRA, NEC, SITE UNSP, INIT Status: Acute Priority: High Current Visit: Yes Onset Date: ~12/11/19 Qualifiers: Encounter type: initial encounter Fracture of vertebra location: lumbar Lumbar vertebra fracture level: L1 Qualified Code(s): S32.010A - Wedge compression fracture of first lumbar vertebra, initial encounter for closed fracture (3) Fall at home SNOMED Code(s): 59854914 Code(s): W19.XXXA - UNSPECIFIED FALL, INITIAL ENCOUNTER; Y92.009 - UNSP PLACE IN UNSP NON-INSTITUT (PRIVATE) RESIDENCE PLACE Status: Acute Current Visit: Yes - Problem List Review Problem List Initiated/Reviewed/Updated: Yes - My Orders Last 24 Hours: My Active Orders 12/11/19 07:57 Patient Status [ADT] Routine Up With Assistance [RC] ASDIRECTED VTE/DVT Education [RC] Per Unit Routine OT Evaluation and Treatment [CONS] Routine PT Evaluation and Treatment [CONS] Routine 12/11/19 07:58 Admission Status [Patient Status] [ADT] Routine 12/11/19 08:00 Antiembolic Hose [OM.PC] Per Unit Routine 12/11/19 08:03 Acetaminophen [Tylenol Extra Strength] 1,000 mg PO TID PRN 12/11/19 09:00 hydroCHLOROthiazide DOSE UNIT RTE FREQ 12/11/19 12:06 Dexa Bone Density Body [MY] Routine 12/11/19 14:05 VITAMIN D, 25-HYDROXY Routine 12/11/19 15:18 Code Status [Resuscitation Status] Routine 12/11/19 15:32 Bladder Scan [RC] ASDIRECTED 12/11/19 17:00 metFORMIN [Glucophage] 1,000 mg PO BIDMEALS 12/11/19 17:12 Acetaminophen/HYDROcodone [[place] 325-5 MG] 1 tab PO Q4H PRN 12/11/19 20:00 Simvastatin [Zocor] 20 mg PO BEDTIME 12/12/19 08:00 Ascorbic Acid [Vitamin C] 500 mg PO DAILY Aspirin [Halfprin] 81 mg PO DAILY Calcitonin ([place]) [Miacalcin Nasal [place]] 0 ml ALEKSANDR DAILY Calcium Carbonate/Vitamin D3 [Calcium 600 + D Tablet] 1 each PO DAILY Diltiazem [Cardizem CD] 360 mg PO DAILY Levothyroxine 150 mcg PO DAILY Non-Formulary Medication [NF Drug] 1 each PO DAILY Pravastatin [Pravachol] 40 mg PO DAILY Vitamin E [Vitamin E] 400 unit PO DAILY hydroCHLOROthiazide 12.5 mg PO DAILY lisinopriL [Prinivil] 2.5 mg PO DAILY - Plan Plan:: Patient to continue with PT/OT today. Discussed discharge planning for discharge on walker and f/u in clinic in 10-14 days for repeat xray of lumbar spine. Discussed with family and planning discharge in am. Counseled on pain management and control.
[2019-12-12] MEDS: Aspirin 81 MG Tab.EC PO SCH ×2 (09:00→11:56)
[2019-12-12] MEDS: Acetaminophen 500 MG Tab PO PRN (10:12)
[2019-12-13] MEDS: Acetaminophen/HYDROcodone 325-5 MG Tab **OWN MED PO PRN (04:48)
[2019-12-13] MEDS: [UNRECOGNIZED DRUG - OTHER] PO SCH (08:00)
[2019-12-13] MEDS: VITAMIN D3 PO SCH (08:00)
[2019-12-13] MEDS: CALCIUM CARBONATE PO SCH (08:00)
[2019-12-13] MEDS: Aspirin 81 MG Tab.EC PO SCH (08:01)
[2019-12-13] MEDS: Ascorbic Acid 500 MG Tab PO SCH (08:01)
[2019-12-13] MEDS: OMEGA FISH OIL PO SCH (08:01)
[2019-12-13] MEDS: Levothyroxine 150 MCG Tab PO SCH (08:01)
[2019-12-13] MEDS: Hydrochlorothiazide 12.5 MG Cap PO SCH (08:02)
[2019-12-13] MEDS: metFORMIN 1,000 MG Tab PO SCH (08:02)
[2019-12-13] MEDS: Pravastatin 40 MG Tab PO SCH (08:02)
[2019-12-13] MEDS: CALCITONIN NAS SCH (08:03)
[2019-12-13] MEDS: Non-Formulary Medication 1 Each (Vitamin E [Vitamin E] 400 UNIT) PO SCH (08:03)
[2019-12-13] MEDS: Diltiazem 180 MG Cap.CD PO SCH (08:04)
[2019-12-13 08:10] VITALS: BP 115/75; PULSE 121
--- NOTE | 2019-12-15 13:31 | PCM.DCSUM1 ---
Discharge Summary - Discharge Data Discharge Date: 12/13/19 Discharge Disposition: Home, Self-Care 01 Condition: Stable - Referral to Home Health Primary Care Physician: PCP None - Discharge Diagnosis/Problem(s) (1) Compression fracture of L3 vertebra SNOMED Code(s): 691298822 ICD Code: S32.030A - WEDGE COMPRESSION FRACTURE OF THIRD LUMBAR VERTEBRA, INIT Status: Acute Priority: High Onset Date: ~12/11/19 Qualifiers: Encounter type: initial encounter Qualified Code(s): S32.030A - Wedge compression fracture of third lumbar vertebra, initial encounter for closed fracture (2) Compression fracture of vertebral column SNOMED Code(s): 51909538 ICD Code: M48.50XA - COLLAPSED VERTEBRA, NEC, SITE UNSP, INIT Status: Acute Priority: High Onset Date: ~12/11/19 Qualifiers: Encounter type: initial encounter Fracture of vertebra location: lumbar Lumbar vertebra fracture level: L1 Qualified Code(s): S32.010A - Wedge compression fracture of first lumbar vertebra, initial encounter for closed fracture (3) Fall at home SNOMED Code(s): 17253141 ICD Code: W19.XXXA - UNSPECIFIED FALL, INITIAL ENCOUNTER; Y92.009 - UNSP PLACE IN [facility] NON-INSTITUT (PRIVATE) RESIDENCE PLACE Status: Acute - Patient Summary/Data Consults: Consultations 12/11/19 07:57 OT Evaluation and Treatment [CONS] Routine Please Evaluate and Treat. OT Reason for Consult: ADL's This query below is only for informational purposes and is not editable. PT Evaluation and Treatment [CONS] Routine Please Evaluate and Treat. PT Reason for Consult: Strengthening This query below is only for informational purposes and is not editable. - Patient Instructions Diet: Heart Healthy Diet Activity: As Tolerated Showering/Bathing: May Shower Notify Provider of: Increased Pain - Discharge Plan Home Medications: Home Meds Ascorbic Acid [Vitamin C] 250 mg PO DAILY 06/11/15 [History] Calcium Carbonate/Vitamin D3 [Calcium 600 + D Tablet] 1 each PO DAILY 06/11/15 [ History] metFORMIN [Glucophage] 1,000 mg PO BIDMEALS 06/11/15 [History] Vitamin E 400 unit PO DAILY 01/31/17 [History] Acetaminophen [Tylenol Extra Strength] 1,000 mg PO TID PRN 06/26/18 [History] Aspirin [Ecotrin EC] 325 mg PO DAILY 06/26/18 [History] Hydrocodone/Acetaminophen [Hydrocodon-Acetaminophen 5-325] 1 each PO Q6HR PRN [History] traMADol [Ultram] 25 - 50 mg PO Q6H PRN 06/26/18 [History] Diltiazem [Dilacor XR] 360 mg PO DAILY #60 cap.er 07/10/18 [Rx] Levothyroxine 125 mcg PO ACBREAKFAST 12/11/19 [History] Pravastatin [Pravachol] 40 mg PO DAILY 12/11/19 [History] hydroCHLOROthiazide [Hydrochlorothiazide] 12/11/19 [History] Patient Handouts: Fall Prevention in the Home, Adult, [id number], Lumbar Fracture, Docusate capsules Forms: ED Department Discharge Referrals: PCP,None [Primary Care Provider] - - Discharge Summary/Plan Comment DC Time >30 min.: No Discharge Summary/Plan Comment: Patient discharged home. Discussed with PT/OT f/u management as needed. Discussed with family plan of care and f/u. Rtc as needed. Continue nasal calcitonin and f/u back pain and management of vertebral compression fractures as directed. - Patient Data Vitals - Most Recent: Last Vital Signs Temp 36.4 C 12/13/19 08:00 Pulse 121 H 12/13/19 08:04 Resp 15 12/13/19 08:00 BP 115/75 12/13/19 08:04 Pulse Ox 94 L 12/13/19 08:00 Weight - Most Recent: 60.781 kg Med Orders - Current: Current Medications Discontinued Medications Acetaminophen (Tylenol Extra Strength) 1,000 mg PO TID PRN PRN Reason: Pain Last Admin: 12/12/19 10:12 Dose: 1,000 mg Hydrocodone Bitart/Acetaminophen ([place] 325-5 Mg) 1 tab PO Q4H PRN PRN Reason: Pain (moderate 4-6) Last Admin: 12/11/19 12:57 Dose: 1 tab Hydrocodone Bitart/Acetaminophen ([place] 325-5 Mg) 1 tab PO Q4H PRN PRN Reason: Pain (moderate 4-6) Last Admin: 12/13/19 04:48 Dose: 1 tab Ascorbic Acid (Vitamin C) 500 mg PO DAILY [facility] Last Admin: 12/13/19 08:01 Dose: 500 mg Aspirin (Halfprin) 81 mg PO DAILY [facility] Last Admin: 12/13/19 08:01 Dose: 81 mg Calcitonin [place] (Miacalcin Nasal [place]) 0 ml ALEKSANDR DAILY [facility] Calcitonin [place] (Miacalcin Nasal [place]) 0 ml ALEKSANDR DAILY [facility] Last Admin: 12/13/19 08:03 Dose: 2 spray Diltiazem HCl (Cardizem Cd) 360 mg PO DAILY [facility] Last Admin: 12/13/19 08:04 Dose: 360 mg Hydrochlorothiazide (Hydrochlorothiazide) 12.5 mg PO DAILY [facility] Last Admin: 12/13/19 08:02 Dose: 12.5 mg Levothyroxine Sodium (Synthroid) 100 mcg PO DAILY [facility] Last Admin: 12/11/19 11:04 Dose: 100 mcg Levothyroxine Sodium (Levothyroxine) 25 mcg PO DAILY [facility] Last Admin: 12/11/19 11:04 Dose: 25 mcg Levothyroxine Sodium (Levothyroxine) 150 mcg PO DAILY [facility] Last Admin: 12/13/19 08:01 Dose: 150 mcg Lisinopril (Prinivil) 2.5 mg PO DAILY [facility] Metformin HCl (Glucophage) 1,000 mg PO BIDMEALS [facility] Last Admin: 12/13/19 08:02 Dose: 1,000 mg Non-Formulary Medication (Calcium Carbonate/Vitamin D3 [Calcium 600 + D Tablet] ) 1 each PO DAILY [facility] Last Admin: 12/13/19 08:00 Dose: 1 each Non-Formulary Medication (Vitamin E [Vitamin E]) 400 unit PO DAILY [facility] Last Admin: 12/13/19 08:03 Dose: 400 unit [place]-3 Fish Oil (1200mg) 1 each PO DAILY [facility] Last Admin: 12/13/19 08:01 Dose: 1 each Pravastatin Sodium (Pravachol) 40 mg PO DAILY [facility] Last Admin: 12/13/19 08:02 Dose: 40 mg Simvastatin (Zocor) 20 mg PO BEDTIME [facility]
== END 2019-12-13 09:15 | disposition home or self-care (01) ==
LOC: LB.ED 05:57 → INTOOBSV 07:57 → LB.MS 07:57
PROVIDERS: ADMIT Family Medicine; ATTEND Family Medicine
DX: S32.030A Wedge compression fracture of third lumbar vertebra, initial encounter for closed fracture (principal); S32.010A Wedge compression fracture of first lumbar vertebra, initial encounter for closed fracture; E78.00 Pure hypercholesterolemia, unspecified; I10 Essential (primary) hypertension; E11.9 Type 2 diabetes mellitus without complications; E03.9 Hypothyroidism, unspecified; W19.XXXA Unspecified fall, initial encounter; Y92.009 Unspecified place in unspecified non-institutional (private) residence as the place of occurrence of the external cause; Z79.84 Long term (current) use of oral hypoglycemic drugs; Z79.899 Other long term (current) drug therapy
CPT/HCPCS: 36415; 51798; 72100; 72170; 77080; 80053; 81001; 82306; 84443; 85025; 97161-GP; 97165-GO; 97530-GP; 97535-GO; 99284-25; A9270-GY

== ENCOUNTER 2019-12-16 03:33 | Inpatient (IN) | payer MEDICARE, BC ==
[2019-12-16] MEDS ORDERED: LORazepam 0.5 MG Tab PO PRN (04:20)
--- NOTE | 2019-12-16 04:26 | EDM.PDOC ---
ED HPI GENERAL MEDICAL PROBLEM - General Chief Complaint: General Stated Complaint: back and stomach pain Time Seen by Provider: 12/16/19 03:50 Source of Information: Reports: Patient, Family History Limitations: Reports: No Limitations - History of Present Illness INITIAL COMMENTS - FREE TEXT/NARRATIVE: This is a 89yo F here for lower back pain and abdominal pain. She rates the pain 8/10 constantly and states she has been unable to sleep all night. She notes she has been on hydrocodone but stopped it due to constipation, drowsiness and side effects. She has not been on any other narcotics and only takes tylenol for the pain. She can not stand the pain any more and called EMS. Duration: Day(s): Location: Reports: Abdomen, Back Quality: Reports: Ache Severity: Severe Improves with: Reports: None Worsens with: Reports: Movement Associated Symptoms: Reports: Loss of Appetite Treatments LOW PRESSURE FIRER: Reports: Other Medication(s) (tylenol) - Related Data Allergies Allergy/AdvReac Type Severity Reaction Status Date / Time No Known Allergies Allergy Verified 06/26/18 15:46 Home Meds: Home Meds Ascorbic Acid [Vitamin C] 250 mg PO DAILY 06/11/15 [History] Calcium Carbonate/Vitamin D3 [Calcium 600 + D Tablet] 1 each PO DAILY 06/11/15 [ History] metFORMIN [Glucophage] 1,000 mg PO BIDMEALS 06/11/15 [History] Vitamin E 400 unit PO DAILY 01/31/17 [History] Acetaminophen [Tylenol Extra Strength] 1,000 mg PO TID PRN 06/26/18 [History] Aspirin [Ecotrin EC] 325 mg PO DAILY 06/26/18 [History] Hydrocodone/Acetaminophen [Hydrocodon-Acetaminophen 5-325] 1 each PO Q6HR PRN [History] traMADol [Ultram] 25 - 50 mg PO Q6H PRN 06/26/18 [History] Diltiazem [Dilacor XR] 360 mg PO DAILY #60 cap.er 07/10/18 [Rx] Levothyroxine 125 mcg PO ACBREAKFAST 12/11/19 [History] Pravastatin [Pravachol] 40 mg PO DAILY 12/11/19 [History] hydroCHLOROthiazide [Hydrochlorothiazide] 12/11/19 [History] Past Medical History HEENT History: Reports: Cataract, Impaired Vision Cardiovascular History: Reports: Afib, High Cholesterol, Hypertension Genitourinary History: Reports: None PEANUT SORTER History: Reports: Other PEANUT SORTER History: Hysterectomy Musculoskeletal History: Reports: Fracture Endocrine/Metabolic History: Reports: Diabetes, Type II, Hypothyroidism - Infectious Disease History Infectious Disease History: Reports: Chicken Pox, Measles, Mumps - Past Surgical History Cardiovascular Surgical History: Reports: None Female Surgical History: Reports: Hysterectomy Musculoskeletal Surgical History: Reports: Other (See Below) Other Musculoskeletal Surgeries/Procedures:: left hip pinning Social & Family History - Family History Family Medical History: Noncontributory - Caffeine Use Caffeine Use: Reports: Coffee ED ROS GENERAL - Review of Systems Review Of Systems: Comprehensive ROS is negative, except as noted in HPI. ED EXAM, GENERAL - Physical Exam Exam: See Below Exam Limited By: No Limitations General Appearance: Alert, WD/WN, No Apparent Distress Eye Exam: Bilateral Eye: EOMI, PERRL Ears: Normal External Exam Nose: Normal Inspection Throat/Mouth: Normal Inspection Head: Atraumatic, Normocephalic Neck: Normal Inspection Respiratory/Chest: No Respiratory Distress, Lungs Clear, Normal Breath Sounds Cardiovascular: Normal Peripheral Pulses, Tachycardia Peripheral Pulses: 2+: Dorsalis Pedis (L), Dorsalis Pedis (R) GI/Abdominal: Normal Bowel Sounds Back Exam: Paraspinal Tenderness Extremities: Normal Inspection Course - Orders/Labs/Meds Orders: Active Orders 24 hr Category Date Time Status Ketorolac [Toradol] Med 12/16/19 03:57 Active 10 mg PO Q6H PRN LORazepam [Ativan] Med 12/16/19 04:20 Ordered 0.5 mg PO BID PRN Medication Orders Ketorolac Tromethamine (Toradol) 10 mg PO Q6H PRN PRN Reason: Pain Stop: 12/21/19 03:58 Meds: Medications Generic Name Dose Route Start Last Admin Trade Name Freq PRN Reason Stop Dose Admin Ketorolac Tromethamine 10 mg 12/16/19 03:57 Toradol PO 12/21/19 03:58 Q6H PRN Pain Departure - Departure Time of Disposition: 04:45 Disposition: Refer to Observation Condition: Undetermined Clinical Impression: Back pain of thoracolumbar region Vertebral compression fracture Qualifiers: Encounter type: initial encounter Fracture of vertebra location: lumbar Lumbar vertebra fracture level: L1 Qualified Code(s): S32.010A - Wedge compression fracture of first lumbar vertebra, initial encounter for closed fracture Abdominal pain Qualifiers: Abdominal location: lower abdomen, unspecified Qualified Code(s): R10.30 - Lower abdominal pain, unspecified - Discharge Information - Problem List & Annotations (1) Weakness SNOMED Code(s): 26773064 Code(s): R53.1 - WEAKNESS Status: Acute Priority: High Current Visit: Yes (2) Pain management SNOMED Code(s): 413184278 Code(s): R52 - PAIN, UNSPECIFIED Status: Acute Priority: High Current Visit: Yes (3) Compression fracture of vertebral column SNOMED Code(s): 94983417 Code(s): M48.50XA - COLLAPSED VERTEBRA, NEC, SITE UNSP, INIT Status: Acute Priority: High Current Visit: Yes Onset Date: ~12/11/19 Qualifiers: Encounter type: initial encounter Fracture of vertebra location: lumbar Lumbar vertebra fracture level: L1 Qualified Code(s): S32.010A - Wedge compression fracture of first lumbar vertebra, initial encounter for closed fracture (4) Abdominal pain SNOMED Code(s): 26601483 Code(s): R10.9 - UNSPECIFIED ABDOMINAL PAIN Status: Acute Priority: High Current Visit: Yes Qualifiers: Abdominal location: lower abdomen, unspecified Qualified Code(s): R10.30 - Lower abdominal pain, unspecified (5) Back pain of thoracolumbar region SNOMED Code(s): 233406539 Code(s): M54.5 - LOW BACK PAIN; M54.6 - PAIN IN THORACIC SPINE Status: Acute Priority: High Current Visit: Yes - Problem List Review Problem List Initiated/Reviewed/Updated: Yes - My Orders Last 24 Hours: My Active Orders 12/16/19 03:57 Ketorolac [Toradol] 10 mg PO Q6H PRN 12/16/19 04:20 LORazepam [Ativan] 0.5 mg PO BID PRN - Assessment/Plan Last 24 Hours: My Active Orders 12/16/19 03:57 Ketorolac [Toradol] 10 mg PO Q6H PRN 12/16/19 04:20 LORazepam [Ativan] 0.5 mg PO BID PRN Plan: Patient to be placed in observation. We will f/u labs and imaging in the AM. We will add toradol 10mg q6, add tramadol as needed if pain is not under control , consider lidocaine patch, and then hydrocodone if needed. We will monitor constipation as directed.
[2019-12-16] MEDS ORDERED: Ketorolac 10 MG Tab ONE (04:30)
[2019-12-16] MEDS ORDERED: Docusate Sodium 100 MG Cap PO PRN (04:31)
[2019-12-16] MEDS ORDERED: Calcium Carbonate 500 MG Tab.Chew PO PRN (04:31)
[2019-12-16] MEDS: Ketorolac 10 MG Tab PO PRN ×2 (04:31→10:47)
[2019-12-16] MEDS ORDERED: Aspirin 81 MG Tab.EC PO SCH (08:00)
[2019-12-16] MEDS ORDERED: Calcitonin (Salmon) Nasal Spray 3.7 ML Bottle NAS SCH (08:00)
[2019-12-16] MEDS: Levothyroxine 150 MCG Tab PO SCH (08:50)
[2019-12-16] MEDS: metFORMIN 1,000 MG Tab PO SCH ×2 (08:51→20:58)
[2019-12-16] MEDS: Hydrochlorothiazide 12.5 MG Cap PO SCH (08:52)
[2019-12-16] MEDS ORDERED: Acetaminophen 500 MG Tab PO PRN (09:04)
[2019-12-16] MEDS ORDERED: Dextrose 5%-0.9% NaCl 1,000 ML IV SCH (09:15)
[2019-12-16] MEDS ORDERED: DILTIAZEM 360 MG PO SCH (09:15)
[2019-12-16] MEDS: Diltiazem 180 MG Cap.CD PO SCH (10:40)
--- NOTE | 2019-12-16 12:21 | CT ---
DATE OF SERVICE: 12/16/2019 CLINICAL DATA: Abdominal pain, back pain Unenhanced abdomen and pelvic CT: Multislice acquisition through the abdomen and pelvis without IV or oral contrast was performed. There are atelectatic changes in dependent portion of both lower lungs in both lung bases, left greater than right. The lung bases are otherwise clear. Heart size is normal. There are mild coronary artery calcifications. There is a small hiatal hernia. The liver is normal size. There are sharply transcribed low density lesions in the right and left lobes of the liver consistent with benign cysts. No other focal hepatic lesions. The gallbladder appears normal. No biliary dilatation. The spleen appears normal. The pancreas appears normal. The right and left adrenals appears normal. There are small nonobstructing renal calculi on the left. No hydronephrosis or hydroureter. The bladder is partially fluid-filled. It appears normal. The patient is status post hysterectomy. No evidence of appendicitis. There is a moderate amount of stool noted in the ascending colon. There is diverticulosis in the descending and sigmoid colon. No evidence of diverticulitis. There is a short segment of apparent mural thickening within the sigmoid colon. This probably related to nondistention. Colonoscopy should be considered. No free air. No free fluid. No dilated loops of bowel. No adenopathy. No aortic aneurysm. There is a small fat containing umbilical hernia. 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 There are multiple partial compression fractures in the lower thoracic and lumbar spine, age-indeterminate. The patient is status post internal fixation left hip. [facility], [place]
[2019-12-16] MEDS ORDERED: Sodium Chloride 0.9% 10 ML Syringe FLUSH PRN (15:06)
[2019-12-16] MEDS: Polyethylene Glycol 3350 Powder 17 GM Packet PO SCH (15:39)
[2019-12-16] MEDS ORDERED: Polyethylene Glycol 3350 Powder 510 GM Bot PO SCH (16:00)
[2019-12-16] MEDS ORDERED: metFORMIN 1,000 MG Tab PO SCH (17:00)
[2019-12-16] MEDS: Pravastatin 40 MG Tab PO SCH (20:59)
[2019-12-17] MEDS: traMADol 50 MG Tab PO PRN ×2 (02:10→20:37)
[2019-12-17] MEDS ORDERED: [UNRECOGNIZED DRUG - OTHER] PO SCH (08:00)
[2019-12-17] MEDS ORDERED: CALCIUM CARBONATE PO SCH (08:00)
[2019-12-17] MEDS ORDERED: Non-Formulary Medication 1 Each (Ascorbic Acid [Vitamin C] 500 MG) PO SCH (08:00)
[2019-12-17] MEDS ORDERED: Pravastatin 40 MG Tab PO SCH (08:00)
[2019-12-17] MEDS ORDERED: VITAMIN D3 PO SCH (08:00)
[2019-12-17] MEDS ORDERED: Aspirin 325 MG Tab.EC PO SCH (08:00)
[2019-12-17] MEDS ORDERED: Hydrochlorothiazide 12.5 MG Cap PO SCH (08:00)
[2019-12-17] MEDS: Levothyroxine 150 MCG Tab PO SCH (08:24)
[2019-12-17] MEDS: Hydrochlorothiazide 12.5 MG Cap PO SCH (08:25)
[2019-12-17] MEDS: metFORMIN 1,000 MG Tab PO SCH ×2 (08:25→20:40)
[2019-12-17] MEDS: Diltiazem 180 MG Cap.CD PO SCH (08:26)
[2019-12-17] MEDS: Polyethylene Glycol 3350 Powder 17 GM Packet PO SCH (09:35)
[2019-12-17] MEDS: Non-Formulary Medication 1 Each (Vitamin E [Vitamin E] 400 UNIT) PO SCH (12:01)
[2019-12-17] MEDS: Calcium Carbonate/Vitamin D3 1500 MG-400 Units Tab PO SCH (12:05)
[2019-12-17] MEDS: Ascorbic Acid 500 MG Tab PO SCH (12:06)
--- NOTE | 2019-12-17 17:10 | PCM.PN ---
- General Info Date of Service: 12/17/19 Subjective Update: Patient feeling very weak and in pain. She notes improvement from 6-8/10 with worsening pain when moving to about 4-6/10 pain. She denies other concerns at this time. - Review of Systems General: Reports: Weakness HEENT: Reports: No Symptoms Pulmonary: Reports: No Symptoms Cardiovascular: Reports: No Symptoms Gastrointestinal: Reports: Abdominal Pain Genitourinary: Reports: No Symptoms Musculoskeletal: Reports: Back Pain Skin: Reports: No Symptoms Neurological: Reports: No Symptoms - Patient Data Vitals - Most Recent: Last Vital Signs Temp 36.8 C 12/17/19 16:00 Pulse 88 12/17/19 16:00 Resp 16 12/17/19 16:00 BP 143/66 H 12/17/19 16:00 Pulse Ox 96 12/17/19 16:00 Weight - Most Recent: 60.6 kg I&O - Last 24 Hours: Intake & Output 12/17/19 12/17/19 12/17/19 06:59 14:59 22:59 Intake Total 100 Balance 100 Lab Results Last 24 Hours: Laboratory Results - last 24 hr 12/17/19 12/17/19 Range/Units 09:40 09:40 WBC 5.7 (4.0-11.0) K/uL RBC 4.03 (3.80-5.80) M/uL Hgb 11.3 L (11.5-16.5) g/dL Hct 34.1 L (37.0-47.0) % MCV 85 (76-96) fL MCH 28.0 (27.0-32.0) pg MCHC 33.1 (31.0-35.0) g/dL RDW 14.9 (11.0-16.0) % Plt Count 278 (150-500) K/uL MPV 9.0 (6.0-10.0) fL Neut % (Auto) 63.6 (45.0-70.0) % Lymph % (Auto) 23.2 (20.0-40.0) % [place] % (Auto) 8.0 (3.0-10.0) % Eos % (Auto) 4.9 (1.0-5.0) % Baso % (Auto) 0.3 (0.0-0.5) % Neut # (Auto) 3.64 (2.00-7.50) K/uL Lymph # (Auto) 1.33 L (1.50-4.00) K/uL [place] # (Auto) 0.46 (0.20-0.80) K/uL Eos # (Auto) 0.28 (0.04-0.40) K/uL Baso # (Auto) 0.02 (0.02-0.10) K/uL Sodium 137 (136-145) mmol/L Potassium 3.8 (3.5-5.1) mmol/L Chloride 99 (98-107) mmol/L Carbon Dioxide 26.6 (21.0-32.0) mmol/L Anion Gap 15.2 H (5.0-15.0) mmol/L BUN 14 D (8-26) mg/dL Creatinine 0.92 (0.55-1.02) mg/dL Est Cr Clr Drug Dosing 33.43 mL/min Estimated GFR (MDRD) 58 L (>60) MLS/MIN BUN/Creatinine Ratio 15.2 (6-25) Glucose 170 H (74-100) mg/dL Calcium 9.1 (8.5-10.1) mg/dL Med Orders - Current: Current Medications Acetaminophen (Tylenol) 650 mg PO Q4H PRN PRN Reason: analgesia/fever Ascorbic Acid (Vitamin C) 500 mg PO DAILY [facility] Last Admin: 12/17/19 12:06 Dose: 500 mg Aspirin (Halfprin) 81 mg PO BEDTIME [facility] Calcitonin [place] (Miacalcin Nasal [place]) 3.7 ml ALEKSANDR ASDIRECTED [facility] Calcium Carbonate (Caltrate 600+D 1500 Mg-400 Units) 1 tab PO DAILY [facility] Last Admin: 12/17/19 12:05 Dose: 1 tab Calcium Carbonate/Glycine (Tums) 1,000 mg PO Q4H PRN PRN Reason: Indigestion Diltiazem HCl (Cardizem Cd) 360 mg PO DAILY [facility] Last Admin: 12/17/19 08:26 Dose: 360 mg Docusate Sodium (Colace) 200 mg PO DAILY PRN PRN Reason: Constipation Hydrochlorothiazide (Hydrochlorothiazide) 12.5 mg PO DAILY [facility] Last Admin: 12/17/19 08:25 Dose: 12.5 mg Dextrose/Sodium Chloride (Dextrose 5%-Normal Saline) 1,000 mls @ 100 mls/hr IV ASDIRECTED [facility] Last Infusion: 12/16/19 16:30 Dose: 100 mls/hr Ketorolac Tromethamine (Toradol) 10 mg PO Q6H PRN PRN Reason: Pain Stop: 12/21/19 03:58 Last Admin: 12/16/19 10:47 Dose: 10 mg Levothyroxine Sodium (Levothyroxine) 150 mcg PO ACBREAKFAST [facility] Last Admin: 12/17/19 08:24 Dose: 150 mcg Lorazepam (Ativan) 0.5 mg PO BID PRN PRN Reason: Anxiety Last Admin: 12/16/19 04:26 Dose: 0.5 mg Metformin HCl (Glucophage) 1,000 mg PO BID [facility] Last Admin: 12/17/19 08:25 Dose: 1,000 mg Non-Formulary Medication (Vitamin E [Vitamin E]) 400 unit PO DAILY [facility] Last Admin: 12/17/19 12:01 Dose: Not Given Polyethylene Glycol (Miralax) 17 gm PO DAILY [facility] Last Admin: 12/17/19 09:35 Dose: 17 gm Pravastatin Sodium (Pravachol) 40 mg PO BEDTIME [facility] Last Admin: 12/16/19 20:59 Dose: 40 mg Sodium Chloride (Saline Flush) 10 ml FLUSH ASDIRECTED PRN PRN Reason: Keep Vein Open Tramadol HCl (Ultram) 50 mg PO Q8H PRN PRN Reason: Abdominal Pain Last Admin: 12/17/19 02:10 Dose: 50 mg Discontinued Medications Aspirin (Halfprin) 81 mg PO DAILY [facility] Last Admin: 12/16/19 15:39 Dose: Not Given Ketorolac Tromethamine (Toradol) Confirm Administered Dose 10 mg .ROUTE .STK- MED ONE Stop: 12/16/19 04:31 Last Admin: 12/16/19 04:33 Dose: Not Given - Exam General: Alert, Oriented HEENT: Pupils Equal, Pupils Reactive, EOMI Neck: Supple Lungs: Clear to Auscultation, Normal Respiratory Effort Cardiovascular: Regular Rate, Regular Rhythm GI/Abdominal Exam: Normal Bowel Sounds, Soft, Non-Tender Back Exam: Muscle Spasm, Paraspinal Tenderness Extremities: Normal Inspection Sepsis Event Note - Evaluation Sepsis Screening Result: No Definite Risk - Focused Exam Vital Signs: Vital Signs Temp Temp Pulse Pulse Resp BP BP 12/17/19 16:00 36.8 C 88 16 143/66 H 12/17/19 08:26 78 117/64 12/17/19 08:23 36.9 C 78 16 117/64 12/17/19 06:00 37.1 C 88 16 134/78 Pulse Ox 12/17/19 16:00 96 12/17/19 08:26 12/17/19 08:23 12/17/19 06:00 99 Date Exam was Performed: 12/18/19 Time Exam was Performed: 10: - Problem List & Annotations (1) Weakness SNOMED Code(s): 47305351 Code(s): R53.1 - WEAKNESS Status: Acute Priority: High Current Visit: Yes (2) Pain management SNOMED Code(s): 805721231 Code(s): R52 - PAIN, UNSPECIFIED Status: Acute Priority: High Current Visit: Yes (3) Compression fracture of vertebral column SNOMED Code(s): 79664571 Code(s): M48.50XA - COLLAPSED VERTEBRA, NEC, SITE UNSP, INIT Status: Acute Priority: High Current Visit: Yes Onset Date: ~12/11/19 Qualifiers: Encounter type: initial encounter Fracture of vertebra location: lumbar Lumbar vertebra fracture level: L1 Qualified Code(s): S32.010A - Wedge compression fracture of first lumbar vertebra, initial encounter for closed fracture (4) Abdominal pain SNOMED Code(s): 17881350 Code(s): R10.9 - UNSPECIFIED ABDOMINAL PAIN Status: Acute Priority: High Current Visit: Yes Qualifiers: Abdominal location: lower abdomen, unspecified Qualified Code(s): R10.30 - Lower abdominal pain, unspecified (5) Back pain of thoracolumbar region SNOMED Code(s): 180600958 Code(s): M54.5 - LOW BACK PAIN; M54.6 - PAIN IN THORACIC SPINE Status: Acute Priority: High Current Visit: Yes - Problem List Review Problem List Initiated/Reviewed/Updated: Yes - My Orders Last 24 Hours: My Active Orders 12/16/19 16:41 Admission Status [Patient Status] [ADT] Routine 12/16/19 20:00 Pravastatin [Pravachol] 40 mg PO BEDTIME 12/16/19 Dinner Consistent Carbohydrate Diet [DIET] 12/17/19 08:00 Ascorbic Acid [Vitamin C] 500 mg PO DAILY Calcium Carbonate/Vitamin D3 [Caltrate 600+D 1500 MG-400 Units] 1 tab PO DAILY Vitamin E [Vitamin E] 400 unit PO DAILY 12/17/19 20:00 Aspirin [Halfprin] 81 mg PO BEDTIME - Plan Plan:: We will continue to titrate pain medication for management. Discussed labs and f /u am labs as routine. Continue current diet and hydration. F/u in AM.
[2019-12-17] MEDS: Acetaminophen 325 MG Tab PO PRN (18:51)
[2019-12-17] MEDS: Pravastatin 40 MG Tab PO SCH (20:38)
[2019-12-17] MEDS: Aspirin 81 MG Tab.EC PO SCH (20:39)
[2019-12-18] MEDS: Levothyroxine 150 MCG Tab PO SCH (06:31)
[2019-12-18] MEDS: Calcium Carbonate/Vitamin D3 1500 MG-400 Units Tab PO SCH (08:00)
[2019-12-18] MEDS: Ascorbic Acid 500 MG Tab PO SCH (08:00)
[2019-12-18] MEDS: metFORMIN 1,000 MG Tab PO SCH ×2 (08:00→20:50)
[2019-12-18] MEDS: Hydrochlorothiazide 12.5 MG Cap PO SCH (08:00)
[2019-12-18] MEDS: Polyethylene Glycol 3350 Powder 17 GM Packet PO SCH (08:02)
[2019-12-18] MEDS: Diltiazem 180 MG Cap.CD PO SCH (08:44)
--- NOTE | 2019-12-18 09:28 | PCM.PN ---
- General Info Date of Service: 12/18/19 Subjective Update: Patient has improved pain control which is at 2/10 at this time. She denies other health concerns. She states that she continues to feel weak and only 50% improved overall despite the pain improving significantly. She states she is weak and unable to move or get out of bed at times. Functional Status: Reports: Pain Controlled - Review of Systems General: Reports: Weakness HEENT: Reports: No Symptoms Pulmonary: Reports: No Symptoms Cardiovascular: Reports: No Symptoms Gastrointestinal: Reports: No Symptoms Genitourinary: Reports: No Symptoms Musculoskeletal: Reports: Back Pain Skin: Reports: No Symptoms Neurological: Reports: No Symptoms - Patient Data Vitals - Most Recent: Last Vital Signs Temp 36.8 C 12/18/19 07:41 Pulse 121 H 12/18/19 08:44 Resp 16 12/18/19 07:41 BP 127/66 12/18/19 08:44 Pulse Ox 98 12/18/19 07:41 Weight - Most Recent: 60.6 kg I&O - Last 24 Hours: Intake & Output 12/17/19 12/18/19 12/18/19 22:59 06:59 14:59 Intake Total 100 150 Balance 100 150 Lab Results Last 24 Hours: Laboratory Results - last 24 hr 12/17/19 12/17/19 Range/Units 09:40 09:40 WBC 5.7 (4.0-11.0) K/uL RBC 4.03 (3.80-5.80) M/uL Hgb 11.3 L (11.5-16.5) g/dL Hct 34.1 L (37.0-47.0) % MCV 85 (76-96) fL MCH 28.0 (27.0-32.0) pg MCHC 33.1 (31.0-35.0) g/dL RDW 14.9 (11.0-16.0) % Plt Count 278 (150-500) K/uL MPV 9.0 (6.0-10.0) fL Neut % (Auto) 63.6 (45.0-70.0) % Lymph % (Auto) 23.2 (20.0-40.0) % [place] % (Auto) 8.0 (3.0-10.0) % Eos % (Auto) 4.9 (1.0-5.0) % Baso % (Auto) 0.3 (0.0-0.5) % Neut # (Auto) 3.64 (2.00-7.50) K/uL Lymph # (Auto) 1.33 L (1.50-4.00) K/uL [place] # (Auto) 0.46 (0.20-0.80) K/uL Eos # (Auto) 0.28 (0.04-0.40) K/uL Baso # (Auto) 0.02 (0.02-0.10) K/uL Sodium 137 (136-145) mmol/L Potassium 3.8 (3.5-5.1) mmol/L Chloride 99 (98-107) mmol/L Carbon Dioxide 26.6 (21.0-32.0) mmol/L Anion Gap 15.2 H (5.0-15.0) mmol/L BUN 14 D (8-26) mg/dL Creatinine 0.92 (0.55-1.02) mg/dL Est Cr Clr Drug Dosing 33.43 mL/min Estimated GFR (MDRD) 58 L (>60) MLS/MIN BUN/Creatinine Ratio 15.2 (6-25) Glucose 170 H (74-100) mg/dL Calcium 9.1 (8.5-10.1) mg/dL Med Orders - Current: Current Medications Acetaminophen (Tylenol) 650 mg PO Q4H PRN PRN Reason: analgesia/fever Last Admin: 12/17/19 18:51 Dose: 650 mg Ascorbic Acid (Vitamin C) 500 mg PO DAILY [facility] Last Admin: 12/18/19 08:00 Dose: 500 mg Aspirin (Halfprin) 81 mg PO BEDTIME [facility] Last Admin: 12/17/19 20:39 Dose: 81 mg Calcitonin [place] (Miacalcin Nasal [place]) 3.7 ml ALEKSANDR ASDIRECTED [facility] Calcium Carbonate (Caltrate 600+D 1500 Mg-400 Units) 1 tab PO DAILY [facility] Last Admin: 12/18/19 08:00 Dose: 1 tab Calcium Carbonate/Glycine (Tums) 1,000 mg PO Q4H PRN PRN Reason: Indigestion Diltiazem HCl (Cardizem Cd) 360 mg PO DAILY [facility] Last Admin: 12/18/19 08:44 Dose: 360 mg Docusate Sodium (Colace) 200 mg PO DAILY PRN PRN Reason: Constipation Hydrochlorothiazide (Hydrochlorothiazide) 12.5 mg PO DAILY [facility] Last Admin: 12/18/19 08:00 Dose: 12.5 mg Dextrose/Sodium Chloride (Dextrose 5%-Normal Saline) 1,000 mls @ 100 mls/hr IV ASDIRECTED [facility] Last Infusion: 12/16/19 16:30 Dose: 100 mls/hr Ketorolac Tromethamine (Toradol) 10 mg PO Q6H PRN PRN Reason: Pain Stop: 12/21/19 03:58 Last Admin: 12/16/19 10:47 Dose: 10 mg Levothyroxine Sodium (Levothyroxine) 150 mcg PO ACBREAKFAST [facility] Last Admin: 12/18/19 06:31 Dose: 150 mcg Lorazepam (Ativan) 0.5 mg PO BID PRN PRN Reason: Anxiety Last Admin: 12/16/19 04:26 Dose: 0.5 mg Metformin HCl (Glucophage) 1,000 mg PO BID [facility] Last Admin: 12/18/19 08:00 Dose: 1,000 mg Non-Formulary Medication (Vitamin E [Vitamin E]) 400 unit PO DAILY [facility] Last Admin: 12/17/19 12:01 Dose: Not Given Polyethylene Glycol (Miralax) 17 gm PO DAILY [facility] Last Admin: 12/18/19 08:02 Dose: Not Given Pravastatin Sodium (Pravachol) 40 mg PO BEDTIME [facility] Last Admin: 12/17/19 20:38 Dose: 40 mg Sodium Chloride (Saline Flush) 10 ml FLUSH ASDIRECTED PRN PRN Reason: Keep Vein Open Tramadol HCl (Ultram) 50 mg PO Q8H PRN PRN Reason: Abdominal Pain Last Admin: 12/17/19 20:37 Dose: 50 mg Discontinued Medications Aspirin (Halfprin) 81 mg PO DAILY [facility] Last Admin: 12/16/19 15:39 Dose: Not Given Ketorolac Tromethamine (Toradol) Confirm Administered Dose 10 mg .ROUTE .STK- MED ONE Stop: 12/16/19 04:31 Last Admin: 12/16/19 04:33 Dose: Not Given - Exam General: Alert, Oriented, Cooperative HEENT: Pupils Equal, Pupils Reactive, EOMI Neck: Supple Lungs: Clear to Auscultation, Normal Respiratory Effort Cardiovascular: Regular Rhythm, Tachycardia GI/Abdominal Exam: Normal Bowel Sounds, Soft, Non-Tender Back Exam: Muscle Spasm, Paraspinal Tenderness, Vertebral Tenderness Extremities: Normal Inspection Sepsis Event Note - Evaluation Sepsis Screening Result: No Definite Risk - Focused Exam Vital Signs: Vital Signs Temp Temp Pulse Pulse Resp BP BP 12/18/19 08:44 121 H 127/66 12/18/19 07:41 36.8 C 67 16 125/64 12/18/19 04:00 36.6 C 86 16 150/74 H 12/18/19 00:00 36.8 C 88 18 142/68 H Pulse Ox 12/18/19 08:44 12/18/19 07:41 98 12/18/19 04:00 99 12/18/19 00:00 96 Date Exam was Performed: 12/18/19 Time Exam was Performed: 10:31 - Problem List & Annotations (1) Weakness SNOMED Code(s): 69990304 Code(s): R53.1 - WEAKNESS Status: Acute Priority: High Current Visit: Yes (2) Pain management SNOMED Code(s): 624146599 Code(s): R52 - PAIN, UNSPECIFIED Status: Acute Priority: High Current Visit: Yes (3) Compression fracture of vertebral column SNOMED Code(s): 38358099 Code(s): M48.50XA - COLLAPSED VERTEBRA, NEC, SITE UNSP, INIT Status: Acute Priority: High Current Visit: Yes Onset Date: ~12/11/19 Qualifiers: Encounter type: initial encounter Fracture of vertebra location: lumbar Lumbar vertebra fracture level: L1 Qualified Code(s): S32.010A - Wedge compression fracture of first lumbar vertebra, initial encounter for closed fracture (4) Abdominal pain SNOMED Code(s): 88753064 Code(s): R10.9 - UNSPECIFIED ABDOMINAL PAIN Status: Acute Priority: High Current Visit: Yes Qualifiers: Abdominal location: lower abdomen, unspecified Qualified Code(s): R10.30 - Lower abdominal pain, unspecified (5) Back pain of thoracolumbar region SNOMED Code(s): 654188909 Code(s): M54.5 - LOW BACK PAIN; M54.6 - PAIN IN THORACIC SPINE Status: Acute Priority: High Current Visit: Yes - Problem List Review Problem List Initiated/Reviewed/Updated: Yes - My Orders Last 24 Hours: My Active Orders 12/17/19 20:00 Aspirin [Halfprin] 81 mg PO BEDTIME 12/18/19 09:05 BASIC METABOLIC PANEL,BMP [CHEM] Routine CBC WITH AUTO DIFF [HEME] Routine 12/18/19 09:27 GLYCOSYLATED HEMOGLOBIN,HGBA1C [CHEM] Routine - Plan Plan:: Discussed pain and patient content with current pain management. She rates it as 2/10 but does not feel that she really needs more pain medications. Patient feels weak and we will f/u with PT/OT for further guidance on improvement and management.
[2019-12-18 10:56] LABS: HEMOGLOBIN A1C 6.5 % (< 5.7)
[2019-12-18] MEDS: Non-Formulary Medication 1 Each (Vitamin E [Vitamin E] 400 UNIT) PO SCH (11:31)
[2019-12-18] MEDS: traMADol 50 MG Tab PO PRN (20:58)
[2019-12-18] MEDS: Pravastatin 40 MG Tab PO SCH (20:58)
[2019-12-18] MEDS: Aspirin 81 MG Tab.EC PO SCH (20:58)
[2019-12-18] MEDS: Acetaminophen 325 MG Tab PO PRN (23:23)
[2019-12-19] MEDS: Levothyroxine 150 MCG Tab PO SCH (06:33)
[2019-12-19] MEDS: Diltiazem 180 MG Cap.CD PO SCH (07:10)
[2019-12-19] MEDS: Calcium Carbonate/Vitamin D3 1500 MG-400 Units Tab PO SCH (07:11)
[2019-12-19] MEDS: metFORMIN 1,000 MG Tab PO SCH (07:11)
[2019-12-19] MEDS: Hydrochlorothiazide 12.5 MG Cap PO SCH (07:11)
[2019-12-19] MEDS: Ascorbic Acid 500 MG Tab PO SCH (07:11)
[2019-12-19] MEDS: Non-Formulary Medication 1 Each (Vitamin E [Vitamin E] 400 UNIT) PO SCH (07:12)
[2019-12-19] MEDS: Polyethylene Glycol 3350 Powder 17 GM Packet PO SCH (07:12)
[2019-12-19 08:27] VITALS: BP 119/72; PULSE 103
--- NOTE | 2019-12-19 16:02 | PCM.DCSUM1 ---
Discharge Summary - Discharge Data Discharge Date: 12/19/19 Discharge Disposition: Home, Self-Care 01 Condition: Good - Referral to Home Health Primary Care Physician: PCP None - Discharge Diagnosis/Problem(s) (1) Weakness SNOMED Code(s): 58400091 ICD Code: R53.1 - WEAKNESS Status: Acute Priority: High Current Visit: Yes (2) Pain management SNOMED Code(s): 549069422 ICD Code: R52 - PAIN, UNSPECIFIED Status: Acute Priority: High Current Visit: Yes (3) Compression fracture of vertebral column SNOMED Code(s): 50208784 ICD Code: M48.50XA - COLLAPSED VERTEBRA, NEC, SITE UNSP, INIT Status: Acute Priority: High Current Visit: Yes Onset Date: ~12/11/19 Qualifiers: Encounter type: initial encounter Fracture of vertebra location: lumbar Lumbar vertebra fracture level: L1 Qualified Code(s): S32.010A - Wedge compression fracture of first lumbar vertebra, initial encounter for closed fracture (4) Abdominal pain SNOMED Code(s): 97451085 ICD Code: R10.9 - UNSPECIFIED ABDOMINAL PAIN Status: Acute Priority: High Current Visit: Yes Qualifiers: Abdominal location: lower abdomen, unspecified Qualified Code(s): R10.30 - Lower abdominal pain, unspecified (5) Back pain of thoracolumbar region SNOMED Code(s): 276591147 ICD Code: M54.5 - LOW BACK PAIN; M54.6 - PAIN IN THORACIC SPINE Status: Acute Priority: High Current Visit: Yes - Patient Summary/Data Consults: Consultations 12/16/19 09:07 PT Evaluation and Treatment [CONS] Routine Please Evaluate and Treat. PT Reason for Consult: Strengthening This query below is only for informational purposes and is not editable. Admission Diagnosis/Problem: Pain management 12/16/19 09:08 OT Evaluation and Treatment [CONS] Routine Please Evaluate and Treat. OT Reason for Consult: ADL's This query below is only for informational purposes and is not editable. Admission Diagnosis/Problem: Pain management - Discharge Plan Home Medications: Home Meds Ascorbic Acid [Vitamin C] 500 mg PO DAILY 06/11/15 [History] Calcium Carbonate/Vitamin D3 [Calcium 600 + D Tablet] 1 each PO DAILY 06/11/15 [ History] metFORMIN [Glucophage] 1,000 mg PO BIDMEALS 06/11/15 [History] Vitamin E 400 unit PO DAILY 01/31/17 [History] Acetaminophen [Tylenol Extra Strength] 1,000 mg PO TID PRN 06/26/18 [History] Aspirin [Ecotrin EC] 325 mg PO DAILY 06/26/18 [History] Hydrocodone/Acetaminophen [Hydrocodon-Acetaminophen 5-325] 1 each PO Q6HR PRN [History] traMADol [Ultram] 25 - 50 mg PO Q6H PRN 06/26/18 [History] Levothyroxine 150 mcg PO ACBREAKFAST 12/11/19 [History] Pravastatin [Pravachol] 40 mg PO DAILY 12/11/19 [History] hydroCHLOROthiazide [Hydrochlorothiazide] 12.5 mg PO DAILY 12/11/19 [History] Diltiazem [Dilacor XR] 360 mg PO DAILY 12/16/19 [History] traMADol [Ultram] 50 mg PO Q8H PRN tablet 12/19/19 [Rx] Forms: ED Department Discharge Referrals: PCP,None [Primary Care Provider] - - Discharge Summary/Plan Comment DC Time >30 min.: No Discharge Summary/Plan Comment: Patient to be discharged home. Discussed supportive and conservative management. Discussed close monitoring of symptoms and pain control. Discussed medication side effects and f/u in clinic. Rtc or ER as needed. - Patient Data Vitals - Most Recent: Last Vital Signs Temp 35.9 C 12/19/19 08:00 Pulse 103 H 12/19/19 08:00 Resp 18 12/19/19 08:00 BP 119/72 12/19/19 08:00 Pulse Ox 96 12/19/19 08:00 Weight - Most Recent: 60.328 kg I&O - Last 24 hours: Intake & Output 12/19/19 12/19/19 12/19/19 06:59 14:59 22:59 Intake Total 150 Balance 150 Med Orders - Current: Current Medications Acetaminophen (Tylenol) 650 mg PO Q4H PRN PRN Reason: analgesia/fever Last Admin: 12/18/19 23:23 Dose: 650 mg Ascorbic Acid (Vitamin C) 500 mg PO DAILY [facility] Last Admin: 12/19/19 07:11 Dose: 500 mg Aspirin (Halfprin) 81 mg PO BEDTIME [facility] Last Admin: 12/18/19 20:58 Dose: 81 mg Calcitonin [place] (Miacalcin Nasal [place]) 3.7 ml ALEKSANDR ASDIRECTED [facility] Calcium Carbonate (Caltrate 600+D 1500 Mg-400 Units) 1 tab PO DAILY [facility] Last Admin: 12/19/19 07:11 Dose: 1 tab Calcium Carbonate/Glycine (Tums) 1,000 mg PO Q4H PRN PRN Reason: Indigestion Diltiazem HCl (Cardizem Cd) 360 mg PO DAILY [facility] Last Admin: 12/19/19 07:10 Dose: 360 mg Docusate Sodium (Colace) 200 mg PO DAILY PRN PRN Reason: Constipation Hydrochlorothiazide (Hydrochlorothiazide) 12.5 mg PO DAILY [facility] Last Admin: 12/19/19 07:11 Dose: 12.5 mg Dextrose/Sodium Chloride (Dextrose 5%-Normal Saline) 1,000 mls @ 100 mls/hr IV ASDIRECTED [facility] Last Infusion: 12/16/19 16:30 Dose: 100 mls/hr Ketorolac Tromethamine (Toradol) 10 mg PO Q6H PRN PRN Reason: Pain Stop: 12/21/19 03:58 Last Admin: 12/16/19 10:47 Dose: 10 mg Levothyroxine Sodium (Levothyroxine) 150 mcg PO ACBREAKFAST [facility] Last Admin: 12/19/19 06:33 Dose: 150 mcg Lorazepam (Ativan) 0.5 mg PO BID PRN PRN Reason: Anxiety Last Admin: 12/16/19 04:26 Dose: 0.5 mg Metformin HCl (Glucophage) 1,000 mg PO BID [facility] Last Admin: 12/19/19 07:11 Dose: 1,000 mg Non-Formulary Medication (Vitamin E [Vitamin E]) 400 unit PO DAILY [facility] Last Admin: 12/19/19 07:12 Dose: Not Given Polyethylene Glycol (Miralax) 17 gm PO DAILY [facility] Last Admin: 12/19/19 07:12 Dose: Not Given Pravastatin Sodium (Pravachol) 40 mg PO BEDTIME [facility] Last Admin: 12/18/19 20:58 Dose: 40 mg Sodium Chloride (Saline Flush) 10 ml FLUSH ASDIRECTED PRN PRN Reason: Keep Vein Open Tramadol HCl (Ultram) 50 mg PO Q8H PRN PRN Reason: Abdominal Pain Last Admin: 12/18/19 20:58 Dose: 50 mg Discontinued Medications Aspirin (Halfprin) 81 mg PO DAILY [facility] Last Admin: 12/16/19 15:39 Dose: Not Given Ketorolac Tromethamine (Toradol) Confirm Administered Dose 10 mg .ROUTE .K- MED ONE Stop: 12/16/19 04:31 Last Admin: 12/16/19 04:33 Dose: Not Given
== END 2019-12-19 16:03 | disposition home or self-care (01) | DRG 544 ==
LOC: LB.ED 03:33 → LB.MS 04:31 → UNDOADMOB 04:35 → OBSVTOIN 16:41
PROVIDERS: ADMIT Family Medicine; ATTEND Family Medicine
DX: S32.010A Wedge compression fracture of first lumbar vertebra, initial encounter for closed fracture (principal); R10.30 Lower abdominal pain, unspecified; R53.1 Weakness; R52 Pain, unspecified; M48.56XA Collapsed vertebra, not elsewhere classified, lumbar region, initial encounter for fracture; M54.6 Pain in thoracic spine; H54.7 Unspecified visual loss; E78.00 Pure hypercholesterolemia, unspecified; I10 Essential (primary) hypertension; I48.91 Unspecified atrial fibrillation; E11.9 Type 2 diabetes mellitus without complications; E03.9 Hypothyroidism, unspecified; Z79.82 Long term (current) use of aspirin; Z79.899 Other long term (current) drug therapy; Z79.84 Long term (current) use of oral hypoglycemic drugs; Z90.710 Acquired absence of both cervix and uterus; Z79.890 Hormone replacement therapy
CPT/HCPCS: 36415; 74176; 80048; 80053; 83036; 84484; 85025; 97161-GP; 97165-GO; 97530-GO; 97530-GP; 99284; A0425; A0429; A9270-GY

== ENCOUNTER 2020-02-03 06:54 | Emergency (ER) | payer MEDICARE, BC ==
[2020-02-03] MEDS ORDERED: Acetaminophen 325 MG Tab PO ONE ×2 (07:49→12:14)
[2020-02-03] MEDS ORDERED: Acetaminophen 325 MG Tab ONE ×2 (07:55→12:16)
--- NOTE | 2020-02-03 10:06 | EDM.PDOC ---
ED HPI GENERAL MEDICAL PROBLEM - General Chief Complaint: Abdominal Pain Stated Complaint: Fall Time Seen by Provider: 02/03/20 07:00 Source of Information: Reports: Patient, Family History Limitations: Reports: Altered Mental Status, Other (poor memory ) - History of Present Illness INITIAL COMMENTS - FREE TEXT/NARRATIVE: Patient with same complaints of 12/16 admission. Patient with similar abdominal pain complaint and rates pain the same as previous visit pain /. Has hjistory of compression fx of Thoracic and Lumbar vertebrae. Pain located in left lower abdomen. Patietn had similar tachycardia to today on previous Patient reports pain similar to pain that she has had for 2 months in left lower abdomen this am. Went to [facility] to get med and left leg gave out and she slipped to floor. Patient denies significant trauma from slipping to the floor. Patient reports problems with constipation but reports LBM of yesterday. Patient was going to bathroom to get "pain med" when she "slipped" to the floor. Pain in abdomen was already present when she slipped to the floor. Complaint very similar to t2 months ago. Patient with history of constipation and istaking diltiazem for atrial fibrillation. Sinus tachycardia 119 present today on monitor. Similar to tachycardia on 12/11 visit. Onset: Other Left Hip Pain Score (Numeric/FACES): 8 - Related Data Allergies Allergy/AdvReac Type Severity Reaction Status Date / Time guaifenesin Allergy Other Verified 02/03/20 08:41 metoprolol Allergy Other Verified 02/03/20 08:40 Sulfa (Sulfonamide Allergy Other Verified 02/03/20 08:40 Antibiotics) Home Meds: Home Meds Calcium Carbonate/Vitamin D3 [Calcium 600 + D Tablet] 1 each PO BID 06/11/15 [ History] metFORMIN [Glucophage] 500 mg PO BIDMEALS 06/11/15 [History] Vitamin E 400 unit PO DAILY 01/31/17 [History] Acetaminophen [Tylenol Extra Strength] 1,000 mg PO TID PRN 06/26/18 [History] Levothyroxine 150 mcg PO ACBREAKFAST 12/11/19 [History] Pravastatin [Pravachol] 40 mg PO BEDTIME 12/11/19 [History] hydroCHLOROthiazide [Hydrochlorothiazide] 12.5 mg PO DAILY 12/11/19 [History] Diltiazem [Dilacor XR] 360 mg PO DAILY 12/16/19 [History] Ascorbic Acid [C-1000] 1,000 mg PO DAILY 02/03/20 [History] Aspirin 81 mg PO DAILY 02/03/20 [History] Calcitonin ([place]) [Miacalcin Nasal [place]] 1 spray INH DAILY 02/03/20 [History] [place]-3/DHA/Epa/Fish Oil [[place]-3 Fish Oil 1,200 MG Sfgl] 1 cap PO BID 02/03/20 [History] Past Medical History HEENT History: Reports: Cataract, Impaired Vision Cardiovascular History: Reports: Afib, High Cholesterol, Hypertension Gastrointestinal History: Reports: Other (See Below) Other Gastrointestinal History: recent constipation due to narcotics. LBM - daughter states she had her ball bladder removed Genitourinary History: Reports: None, Urinary Incontinence [employer] History: Reports: Other [employer] History: Hysterectomy Musculoskeletal History: Reports: Arthritis, Fracture Endocrine/Metabolic History: Reports: Diabetes, Type II, Hypothyroidism - Infectious Disease History Infectious Disease History: Reports: Chicken Pox, Measles, Mumps - Past Surgical History HEENT Surgical History: Reports: Cataract Surgery Cardiovascular Surgical History: Reports: None GI Surgical History: Reports: Appendectomy, Colonoscopy Other GI Surgeries/Procedures: Long ago, toothpick found in colon - unknown treatment Female Surgical History: Reports: Hysterectomy Endocrine Surgical History: Reports: None Musculoskeletal Surgical History: Reports: Other (See Below) Other Musculoskeletal Surgeries/Procedures:: left hip pinning Social & Family History - Family History Family Medical History: Noncontributory - Caffeine Use Caffeine Use: Reports: Coffee ED ROS GENERAL - Review of Systems Review Of Systems: See Below Constitutional: Reports: No Symptoms HEENT: Reports: No Symptoms Respiratory: Reports: No Symptoms Cardiovascular: Reports: No Symptoms GI/Abdominal: Reports: Abdominal Pain, Constipation : Reports: No Symptoms Musculoskeletal: Reports: No Symptoms Skin: Reports: No Symptoms Psychiatric: Reports: No Symptoms Hematologic/Lymphatic: Reports: No Symptoms, Other (P) Immunologic: Reports: No Symptoms ED EXAM, GI/ABD - Physical Exam Exam: See Below Exam Limited By: No Limitations General Appearance: Alert, WD/WN, No Apparent Distress Eyes: Bilateral: Normal Appearance Ears: Normal External Exam, Normal Canal, Hearing Grossly Normal, Normal TMs Nose: Normal Inspection, Normal Mucosa, No Blood Throat/Mouth: Normal Inspection, Normal Lips, Normal Teeth, Normal Gums, Normal Oropharynx, Normal Voice, No Airway Compromise Head: Atraumatic, Normocephalic Neck: Normal Inspection, Supple, Non-Tender, Full Range of Motion Respiratory/Chest: No Respiratory Distress, Lungs Clear, Normal Breath Sounds, No Accessory Muscle Use, Chest Non-Tender Cardiovascular: Normal Peripheral Pulses, Regular Rate, Rhythm, No Edema, No Gallop, No JVD, No Murmur, No Rub GI/Abdominal Exam: Normal Bowel Sounds, Soft, Pelvis Stable, Tender (mild left lower quadrant abdominal tenderness), Other (Female) Exam: Normal External Exam, Normal Speculum Exam, Normal Bimanual Exam Rectal (Female) Exam: Normal Exam, Normal Rectal Tone Back Exam: Normal Inspection, Full Range of Motion, NT Extremities: Normal Inspection, Normal Range of Motion, Non-Tender, Normal Capillary Refill, No Pedal Edema Neurological: Alert, Oriented, CN II-XII Intact, Normal Cognition, Normal Gait, Normal Reflexes, No Motor/Sensory Deficits Psychiatric: Normal Affect, Normal Mood Skin Exam: Warm, Dry, Intact, Normal Color, No Rash Lymphatic: No Adenopathy Course - Vital Signs Last Recorded V/S: Last Vital Signs Temp 98.4 F 02/03/20 07:49 Pulse 119 H 02/03/20 11:45 Resp 16 02/03/20 11:45 BP 133/84 02/03/20 11:45 Pulse Ox 95 02/03/20 11:45 - Orders/Labs/Meds Labs: Laboratory Tests 02/03/20 02/03/20 02/03/20 Range/Units 07:43 07:43 07:43 WBC 8.6 D (4.0-11.0) K/uL RBC 4.17 (3.80-5.80) M/uL Hgb 12.1 (11.5-16.5) g/dL Hct 35.3 L (37.0-47.0) % MCV 85 (76-96) fL MCH 29.0 (27.0-32.0) pg MCHC 34.3 (31.0-35.0) g/dL RDW 14.7 (11.0-16.0) % Plt Count 290 (150-500) K/uL MPV 8.8 (6.0-10.0) fL Neut % (Auto) 73.3 H (45.0-70.0) % Lymph % (Auto) 16.9 L (20.0-40.0) % [place] % (Auto) 7.9 (3.0-10.0) % Eos % (Auto) 1.6 (1.0-5.0) % Baso % (Auto) 0.3 (0.0-0.5) % Neut # (Auto) 6.30 (2.00-7.50) K/uL Lymph # (Auto) 1.45 L (1.50-4.00) K/uL [place] # (Auto) 0.68 (0.20-0.80) K/uL Eos # (Auto) 0.14 (0.04-0.40) K/uL Baso # (Auto) 0.03 (0.02-0.10) K/uL Sodium 135 L (136-145) mmol/L Potassium 3.8 (3.5-5.1) mmol/L Chloride 98 (98-107) mmol/L Carbon Dioxide 26.2 (21.0-32.0) mmol/L Anion Gap 14.6 (5.0-15.0) mmol/L BUN 16 (8-26) mg/dL Creatinine 0.87 (0.55-1.02) mg/dL Est Cr Clr Drug Dosing 35.35 mL/min Estimated GFR (MDRD) > 60 (>60) MLS/MIN BUN/Creatinine Ratio 18.4 (6-25) Glucose 151 H (74-100) mg/dL Calcium 9.5 (8.5-10.1) mg/dL Total Bilirubin 0.6 (0.0-1.0) mg/dL AST 17 (15-37) U/L ALT 17 (12-78) U/L Alkaline Phosphatase 89 (46-116) U/L Total Protein 8.4 H (6.4-8.2) g/dL Albumin 3.4 (3.4-5.0) g/dL Globulin 5.0 H (2.2-4.2) g/dL Albumin/Globulin Ratio 0.7 L (0.8-2.0) Free T4 Direct 1.80 H (0.82-1.77) ng/dL TSH, Ultra Sensitive 0.578 D (0.358-3.740) uIU/mL Meds: Medications Discontinued Medications Generic Name Dose Route Start Last Admin Trade Name Randi PRN Reason Stop Dose Admin Acetaminophen 650 mg 02/03/20 07:49 02/03/20 07:54 Tylenol PO 02/03/20 07:50 650 mg NOW ONE Administration Acetaminophen Confirm 02/03/20 07:55 02/03/20 13:17 Tylenol Administered 02/03/20 07:56 Not Given Dose 650 mg .ROUTE .STK-MED ONE Acetaminophen Confirm 02/03/20 12:16 02/03/20 12:16 Tylenol Administered 02/03/20 12:17 650 mg Dose Administration 650 mg .ROUTE .STK-MED ONE Acetaminophen 650 mg 02/03/20 12:14 02/03/20 13:23 Tylenol PO 02/03/20 12:15 Not Given NOW ONE Departure - Departure Time of Disposition: 12:00 Disposition: Home, Self-Care 01 Clinical Impression: Abdominal pain Qualifiers: Abdominal location: lower abdomen, unspecified Qualified Code(s): R10.30 - Lower abdominal pain, unspecified - Discharge Information *PRESCRIPTION DRUG MONITORING PROGRAM REVIEWED*: Not Applicable *COPY OF PRESCRIPTION DRUG MONITORING REPORT IN PATIENT DEEPAK: Not Applicable Instructions: Constipation, Adult, [id number], Docusate capsules Referrals: PCP,None [Primary Care Provider] - Forms: ED Department Discharge, ED Return to Work/School Form Additional Instructions: Patient to decrease Diltiazem to 180 mg daily. Decrease Levothryroxine to 100 mcg daily . STart colase 100 mg twice a day. Continue Metacucil once or twice a day . Decreasing Diltiazem may help with constipation as well taking colase and metamucil Follow up with Dr. Mcdonald next week for recheck Acetaminophen/tylenol as needed for pain Return for increasing pain or other worsening Sepsis Event Note - Evaluation Sepsis Screening Result: No Definite Risk - Focused Exam Date Exam was Performed: 02/06/20 Time Exam was Performed: 09:54
--- NOTE | 2020-02-03 11:11 | CT ---
DATE OF SERVICE: 02/03/20 CLINICAL DATA: LLQ pain UNENHANCED ABDOMEN AND PELVIC CT: Multislice acquisition through the abdomen and pelvis without IV or oral contrast was performed. Comparison is made to a prior exam dated 12/16/19. The lung bases are clear. The heart size is at the upper limits of normal. There are coronary artery calcifications. There is a moderate sized hiatal hernia. The liver is normal size. There are stable low density lesions within the liver. No new hepatic abnormalities. The gallbladder appears normal. No calcified gallstones. The spleen appears normal. The pancreas appears normal. The right and left adrenals appear normal. There are small nonobstructing renal calculi on the left. The right and left kidneys otherwise appear normal. No hydronephrosis or hydroureter. The bladder is fluid filled. There is high attenuation material within the dependent bladder on the right. These could be noncalcified bladder calculi. Other debris should be considered. No bladder wall thickening. The patient is status post hysterectomy. No evidence of appendicitis. There is diverticulosis throughout the colon. No evidence of diverticulitis. There is a moderate amount of stool present throughout the colon and rectum also. No free air. No free fluid. No dilated loops of bowel. No adenopathy. No aortic aneurysm. The patient is status post internal fixation of the left hip. 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 There are multiple partial compression fractures of the lower thoracic and lumbar spine. These are unchanged from the prior exam. IMPRESSION: No acute abnormalities. Multiple other findings as discussed above. [id number] [facility]
[2020-02-03 11:56] VITALS: BP 133/84; PULSE 119
== END 2020-02-03 12:36 | disposition home or self-care (01) ==
LOC: LB.ED 06:54
DX: R10.32 Left lower quadrant pain (principal); I10 Essential (primary) hypertension; E78.00 Pure hypercholesterolemia, unspecified; I48.91 Unspecified atrial fibrillation; E11.9 Type 2 diabetes mellitus without complications; E03.9 Hypothyroidism, unspecified; Z79.84 Long term (current) use of oral hypoglycemic drugs; Z79.82 Long term (current) use of aspirin; Z79.899 Other long term (current) drug therapy; Z88.2 Allergy status to sulfonamides; Z88.8 Allergy status to other drugs, medicaments and biological substances
CPT/HCPCS: 36415; 74176; 80053; 84439; 84443; 85025; 93005; 99285; A0425; A0429; A9270; 99283

== ENCOUNTER 2021-01-24 12:01 | Emergency (ER) | payer MEDICARE, BC ==
[2021-01-24] MEDS ORDERED: Lactated Ringers 1,000 ML IV SCH (12:15)
[2021-01-24 12:47] VITALS: BP 153/97; PULSE 116
--- NOTE | 2021-01-24 12:51 | EDM.PDOC ---
ED HPI GENERAL MEDICAL PROBLEM - General Chief Complaint: Gastrointestinal Problem Stated Complaint: DIARRHEA Time Seen by Provider: 01/24/21 12:25 Source of Information: Reports: Patient, RN History Limitations: Reports: No Limitations - History of Present Illness INITIAL COMMENTS - FREE TEXT/NARRATIVE: Ms. Collado presents to the ED with an episode of watery diarrhea. She takes stool softeners daily. She recently completed ABX therapy for a UTI. She has some abdominal pain. No bloating or guarding. Bowl sounds sounds are active. No fever N, V or D. No chest pain cough or congestion. She has not taken anything for the diarrhea at home. Medical history of Type 2 diabetes, hypercholesterolemia, HTN. If symptoms persist she will have to see Dr. Mcdonald in the clinic to give a stool sample for C- diff screening. Onset: Today Onset Date: 01/24/21 Onset Time: 09:00 Duration: Hour(s): Location: Reports: Abdomen Severity: Mild Improves with: Reports: None Worsens with: Reports: None Associated Symptoms: Reports: Weakness, Other (Diarrhea, abdominal pain) - Related Data Allergies Allergy/AdvReac Type Severity Reaction Status Date / Time guaifenesin Allergy Other Verified 01/24/21 13:12 metoprolol Allergy Other Verified 01/24/21 13:12 Sulfa (Sulfonamide Allergy Other Verified 01/24/21 13:12 Antibiotics) Home Meds: Home Meds Diltiazem [Diltiazem XR] 2 cap PO DAILY 01/24/21 [History] Levothyroxine 125 mcg PO ACBREAKFAST 01/24/21 [History] Pravastatin [Pravachol] 40 mg PO BEDTIME 01/24/21 [History] Sennosides [Senna] 2 tab PO BID 01/24/21 [History] hydroCHLOROthiazide [Hydrochlorothiazide] 12.5 mg PO DAILY 01/24/21 [History] metFORMIN [Glucophage] 1,000 mg PO BIDMEALS 01/24/21 [History] Past Medical History HEENT History: Reports: Cataract, Impaired Vision Cardiovascular History: Reports: Afib, High Cholesterol, Hypertension Gastrointestinal History: Reports: Other (See Below) Other Gastrointestinal History: recent constipation due to narcotics. 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 Musculoskeletal History: Reports: Arthritis, Fracture Endocrine/Metabolic History: Reports: Diabetes, Type II, Hypothyroidism - Infectious Disease History Infectious Disease History: Reports: Chicken Pox, Measles, Mumps - Past Surgical History HEENT Surgical History: Reports: Cataract Surgery Cardiovascular Surgical History: Reports: None GI Surgical History: Reports: Appendectomy, Colonoscopy Other GI Surgeries/Procedures: Long ago, toothpick found in colon - unknown treatment Female Surgical History: Reports: Hysterectomy Endocrine Surgical History: Reports: None Musculoskeletal Surgical History: Reports: Other (See Below) Other Musculoskeletal Surgeries/Procedures:: left hip pinning Social & Family History - Family History Family Medical History: No Pertinent Family History - Caffeine Use Caffeine Use: Reports: Coffee ED ROS GENERAL - Review of Systems Review Of Systems: Comprehensive ROS is negative, except as noted in HPI. GI/Abdominal: Reports: Abdominal Pain, Other (Diarrhea) ED EXAM, GI/ABD - Physical Exam Exam: See Below Exam Limited By: No Limitations General Appearance: Alert, No Apparent Distress Ears: Normal External Exam, Normal Canal Nose: Normal Inspection, Normal Mucosa, No Blood Throat/Mouth: Normal Inspection, Normal Lips, Normal Teeth Head: Atraumatic, Normocephalic Neck: Normal Inspection, Supple, Non-Tender Respiratory/Chest: No Respiratory Distress, Lungs Clear, Normal Breath Sounds Cardiovascular: Normal Peripheral Pulses, Regular Rate, Rhythm, No Edema GI/Abdominal Exam: Soft, Non-Tender, No Distention, Other (over active bowl sounds) Extremities: Normal Inspection, Non-Tender, No Pedal Edema Neurological: Alert, Oriented, CN II-XII Intact Psychiatric: Normal Affect, Normal Mood Lymphatic: No Adenopathy Course - Vital Signs Last Recorded V/S: Last Vital Signs Temp 35.9 C L 01/24/21 12:01 Pulse 116 H 01/24/21 12:01 Resp 16 01/24/21 12:01 BP 153/97 H 01/24/21 12:01 Pulse Ox 100 01/24/21 12:01 - Orders/Labs/Meds Orders: Active Orders 24 hr Category Date Time Status COMPREHENSIVE METABOLIC PN,CMP [CHEM] Stat Lab 01/24/21 12:52 Ordered UA W/MICROSCOPIC [URIN] Stat Lab 01/24/21 12:52 Ordered Labs: Laboratory Tests 01/24/21 Range/Units 13:05 WBC 14.6 H D (4.0-11.0) K/uL RBC 3.79 L (3.80-5.80) M/uL Hgb 10.8 L (11.5-16.5) g/dL Hct 33.2 L (37.0-47.0) % MCV 88 (76-96) fL MCH 28.5 (27.0-32.0) pg MCHC 32.5 (31.0-35.0) g/dL RDW 14.7 (11.0-16.0) % Plt Count 325 (150-500) K/uL MPV 9.0 (6.0-10.0) fL Departure - Departure Time of Disposition: 14:45 Disposition: Home, Self-Care 01 Condition: Good Clinical Impression: Dehydration, Diarrhea Abdominal pain Qualifiers: Abdominal location: lower abdomen, unspecified Qualified Code(s): R10.30 - Lower abdominal pain, unspecified - Discharge Information *PRESCRIPTION DRUG MONITORING PROGRAM REVIEWED*: Not Applicable Instructions: Dehydration, Adult, [id number], Abdominal Pain, Adult, [id number], Diarrhea, Adult, [id number] Referrals: PCP,None [Primary Care Provider] - Forms: ED Department Discharge Additional Instructions: Increase fluid intake. Decrease stool softeners to every other day. FU with Dr. Mcdonald in the clinic if symptoms worsen or persist. RT to ED for emergency concerns. Sepsis Event Note (ED) - Focused Exam Vital Signs: Vital Signs Temp Pulse Resp BP Pulse Ox 01/24/21 12:01 35.9 C L 116 H 16 153/97 H 100 - My Orders Last 24 Hours: My Active Orders 01/24/21 12:52 COMPREHENSIVE METABOLIC PN,CMP [CHEM] Stat UA W/MICROSCOPIC [URIN] Stat - Assessment/Plan Last 24 Hours: My Active Orders 01/24/21 12:52 COMPREHENSIVE METABOLIC PN,CMP [CHEM] Stat UA W/MICROSCOPIC [URIN] Stat
--- NOTE | 2021-01-25 07:30 | CR ---
Date of Service: 01/24/21 Clinical Data: infection AP CHEST: Comparison is made to a prior exam dated 01/31/17. The heart size is normal. There is subtle ground-glass opacity in the right midlung suspicious for pneumonia/pneumonitis. Viral pneumonia should be considered. The lungs are otherwise clear. No pneumothorax. No pleural effusions. [id number] MTDD
[2021-01-25] MEDS ORDERED: Sodium Chloride 0.9% 10 ML Syringe FLUSH PRN (11:10)
== END 2021-01-24 16:00 | disposition home or self-care (01) ==
LOC: LB.ED 12:01
DX: E86.0 Dehydration (principal); R19.7 Diarrhea, unspecified; I48.91 Unspecified atrial fibrillation; E78.00 Pure hypercholesterolemia, unspecified; I10 Essential (primary) hypertension; E11.9 Type 2 diabetes mellitus without complications; E03.9 Hypothyroidism, unspecified; Z88.8 Allergy status to other drugs, medicaments and biological substances; Z88.2 Allergy status to sulfonamides; Z79.899 Other long term (current) drug therapy
CPT/HCPCS: 36415; 51701; 51702; 71045; 80053; 81001; 85025; 87086; 99283; 99284-25; J7120

== ENCOUNTER 2021-04-26 17:08 | Emergency (ER) | payer MEDICARE, BC ==
[2021-04-26 17:25] VITALS: BP 147/89; PULSE 114
[2021-04-26] MEDS ORDERED: fentaNYL 100 MCG/2 ML SDV IM STA (17:30)
--- NOTE | 2021-04-26 17:53 | CR ---
DATE OF SERVICE: 04/26/2021 CLINICAL DATA: Fall Pelvis and right hip: No priors. There is diffuse osteopenia. There is an acute subcapital femoral neck fracture on the right with coxa deformity fracture. The patient is status post internal fixation of a left hip fracture. There are osteoarthritic changes of both hip joints. There is degenerative disc disease at multiple levels in the lower lumbar spine. No focal lytic or blastic bone lesions. Impression: Acute right hip fracture. MTDD
--- NOTE | 2021-04-26 17:54 | EDM.PDOC ---
ED HPI GENERAL MEDICAL PROBLEM - General Chief Complaint: Lower Extremity Injury/Pain Stated Complaint: RIGHT HIP INJURY Time Seen by Provider: 04/26/21 17:20 Source of Information: Reports: Patient History Limitations: Reports: No Limitations - History of Present Illness INITIAL COMMENTS - FREE TEXT/NARRATIVE: patient presented to the ER after a fall - from a standing position patient lives at home independently and move around with a little help usually. no head injury. reports pain 8 out of 10 no ASA 81mg Onset: Sudden Duration: Minutes: (30) Location: Reports: Lower Extremity, Right Quality: Reports: Sharp Severity: Moderate Improves with: Reports: Immobilization Worsens with: Reports: Movement Right Hip Pain Score (Numeric/FACES): 8 - Related Data Allergies Allergy/AdvReac Type Severity Reaction Status Date / Time guaifenesin Allergy Other Verified 04/26/21 17:16 metoprolol Allergy Other Verified 04/26/21 17:16 Sulfa (Sulfonamide Allergy Other Verified 04/26/21 17:16 Antibiotics) Home Meds: Home Meds Diltiazem [Diltiazem XR] 2 cap PO DAILY 01/24/21 [History] Levothyroxine 125 mcg PO ACBREAKFAST 01/24/21 [History] hydroCHLOROthiazide [Hydrochlorothiazide] 12.5 mg PO DAILY 01/24/21 [History] metFORMIN [Glucophage] 1,000 mg PO BIDMEALS 01/24/21 [History] Aspirin 81 mg PO DAILY 04/26/21 [History] Calcium Carb/D3/Mag AA Chelate [Coral Calcium Capsule] 1 each PO DAILY 04/26/21 [History] L.acidoph,Paracasei, B.lactis [Probiotic] 1 each PO DAILY 04/26/21 [History] [place]-3 Fatty Acids/Fish Oil [[place]-3 Fish Oil 1,200 mg Sfgl] 1 each PO DAILY 04/26/21 [History] Vitamin E 400 unit PO DAILY 04/26/21 [History] Past Medical History HEENT History: Reports: Cataract, Impaired Vision Cardiovascular History: Reports: Afib, High Cholesterol, Hypertension Gastrointestinal History: Reports: Other (See Below) Other Gastrointestinal History: recent constipation due to narcotics. 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 Musculoskeletal History: Reports: Arthritis, Fracture Endocrine/Metabolic History: Reports: Diabetes, Type II, Hypothyroidism - Infectious Disease History Infectious Disease History: Reports: Chicken Pox, Measles, Mumps - Past Surgical History HEENT Surgical History: Reports: Cataract Surgery Cardiovascular Surgical History: Reports: None GI Surgical History: Reports: Appendectomy, Colonoscopy Other GI Surgeries/Procedures: Long ago, toothpick found in colon - unknown treatment Female Surgical History: Reports: Hysterectomy Endocrine Surgical History: Reports: None Musculoskeletal Surgical History: Reports: Other (See Below) Other Musculoskeletal Surgeries/Procedures:: left hip pinning Social & Family History - Family History Family Medical History: No Pertinent Family History - Caffeine Use Caffeine Use: Reports: Coffee Review of Systems - Review of Systems Review Of Systems: See Below Constitutional: Reports: No Symptoms Eyes: Reports: No Symptoms Respiratory: Reports: No Symptoms Cardiovascular: Reports: No Symptoms GI/Abdominal: Reports: No Symptoms Skin: Reports: No Symptoms Neurological: Reports: No Symptoms ED EXAM, GENERAL - Physical Exam Exam: See Below Exam Limited By: No Limitations General Appearance: Alert, WD/WN, No Apparent Distress Eye Exam: Bilateral Eye: EOMI Respiratory/Chest: No Respiratory Distress, Lungs Clear Cardiovascular: Normal Peripheral Pulses, Regular Rate, Rhythm, Tachycardia GI/Abdominal: Normal Bowel Sounds, Soft Extremities: Other (mild TTP over the right hip area) Neurological: Alert, Oriented, Other (limited ROM RLE due to pain) Course - Vital Signs Last Recorded V/S: Last Vital Signs Temp 36.6 C 04/26/21 17:10 Pulse 114 H 04/26/21 17:10 Resp 16 04/26/21 17:10 BP 147/89 H 04/26/21 17:10 Pulse Ox 98 04/26/21 17:10 - Orders/Labs/Meds Orders: Active Orders 24 hr Category Date Time Status EKG Documentation Completion [RC] ASDIRECTED Care 04/26/21 17:32 Active Labs: Laboratory Tests 04/26/21 04/26/21 Range/Units 17:40 17:50 WBC 8.9 D (4.0-11.0) K/uL RBC 3.73 L (3.80-5.80) M/uL Hgb 10.6 L (11.5-16.5) g/dL Hct 31.5 L (37.0-47.0) % MCV 85 (76-96) fL MCH 28.4 (27.0-32.0) pg MCHC 33.7 (31.0-35.0) g/dL RDW 14.5 (11.0-16.0) % Plt Count 274 (150-500) K/uL MPV 8.6 (6.0-10.0) fL Sodium 134 L (136-145) mmol/L Potassium 3.5 (3.5-5.1) mmol/L Chloride 98 (98-107) mmol/L Carbon Dioxide 24.6 (21.0-32.0) mmol/L Anion Gap 14.9 (5.0-15.0) mmol/L BUN 16 (8-26) mg/dL Creatinine 1.04 H (0.55-1.02) mg/dL Est Cr Clr Drug Dosing 29.00 mL/min Estimated GFR (MDRD) 50 L (>60) MLS/MIN BUN/Creatinine Ratio 15.4 (6-25) Glucose 172 H D (74-100) mg/dL Calcium 9.4 (8.5-10.1) mg/dL Troponin I < 0.017 (0.000-0.060) ng/mL Meds: Medications Discontinued Medications Generic Name Dose Route Start Last Admin Trade Name Ranid PRN Reason Stop Dose Admin Fentanyl 50 mcg 04/26/21 17:30 04/26/21 17:36 Fentanyl 100 Mcg/2 Ml Sdv IM 04/26/21 17:31 50 mcg NOW STA Administration - Re-Assessments/Exams Free Text/Narrative Re-Assessment/Exam: 04/26/21 17:51 xray hip - showed right intertrochanteric fracture no major displacement pain was controlled with fentanyl 50 mcg IM labs were ordered including CBC, CMP and trop EKG - sinus tachycardia contacted ortho at [facility] - who accepted the patient for surgical fixation Departure - Departure Time of Disposition: 17:51 Disposition: DC/Tfer to Acute Hospital 02 Condition: Good Clinical Impression: Fracture of neck of femur, hip - Discharge Information *PRESCRIPTION DRUG MONITORING PROGRAM REVIEWED*: Not Applicable *COPY OF PRESCRIPTION DRUG MONITORING REPORT IN PATIENT DEEPAK: Not Applicable Forms: ED Department Discharge Sepsis Event Note (ED) - Evaluation Sepsis Screening Result: No Definite Risk - Focused Exam Vital Signs: Vital Signs Temp Pulse Resp BP Pulse Ox 06/08/21 17:10 36.6 C 114 H 16 147/89 H 98 - Problem List & Annotations (1) Fracture of neck of femur, hip SNOMED Code(s): 4892634 Code(s): S72.009A - FRACTURE OF UNSP PART OF NECK OF UNSP FEMUR, INIT Status: Acute Priority: Medium Current Visit: No - Problem List Review Problem List Initiated/Reviewed/Updated: Yes - My Orders Last 24 Hours: My Active Orders 04/26/21 17:32 EKG Documentation Completion [RC] ASDIRECTED - Assessment/Plan Last 24 Hours: My Active Orders 04/26/21 17:32 EKG Documentation Completion [RC] ASDIRECTED Plan: - labs - pain control - transfer to a higher level of care - Allan Jyoti - for surgical fixation
[2021-04-26] MEDS ORDERED: Sodium Chloride 0.9% 1,000 ML IV SCH (18:30)
[2021-04-26] MEDS ORDERED: fentaNYL 100 MCG/2 ML SDV IVPUSH ONE (19:23)
[2021-04-26] MEDS ORDERED: fentaNYL 100 MCG/2 ML SDV ONE (19:37)
== END 2021-04-26 19:50 ==
LOC: LB.ED 17:08
DX: S72.011A Unspecified intracapsular fracture of right femur, initial encounter for closed fracture (principal); E78.00 Pure hypercholesterolemia, unspecified; E03.9 Hypothyroidism, unspecified; E11.9 Type 2 diabetes mellitus without complications; I10 Essential (primary) hypertension; Z79.84 Long term (current) use of oral hypoglycemic drugs; Z79.899 Other long term (current) drug therapy; Z88.5 Allergy status to narcotic agent; Z88.2 Allergy status to sulfonamides; W18.39XA Other fall on same level, initial encounter
CPT/HCPCS: 36415; 51702; 73501; 80048; 84484; 85027; 93005; 93010; 96372; 96374; 99285; J3010; J7030; A0425; A0429

== ENCOUNTER 2021-05-02 10:19 | Inpatient (IN) | payer MEDICARE, BC ==
[2021-05-02] MEDS: oxyCODONE 5 MG Tab PO PRN (14:25)
[2021-05-02] MEDS ORDERED: Tuberculin, PPD 5 Units/0.1 ML 1 ML MDV IDERM ONE (16:47)
[2021-05-02] MEDS: metFORMIN 1,000 MG Tab PO SCH (17:17)
[2021-05-02] MEDS: Fish Oil/Omega-3 Fatty Acids 1 Gm Cap PO SCH (20:49)
[2021-05-02] MEDS: Metoprolol Tartrate 25 MG Tab PO SCH (20:50)
[2021-05-02] MEDS: Apixaban 5 MG Tab PO SCH (20:52)
[2021-05-02] MEDS: Levothyroxine 150 MCG Tab PO SCH (20:52)
[2021-05-02] MEDS: Pravastatin 40 MG Tab PO SCH (20:53)
[2021-05-03] MEDS: oxyCODONE 5 MG Tab PO PRN ×3 (01:16→19:48)
[2021-05-03] MEDS: Acetaminophen 325 MG Tab PO PRN ×2 (01:18→19:47)
[2021-05-03] MEDS: Aspirin 81 MG Tab.EC PO SCH (07:56)
[2021-05-03] MEDS: Fish Oil/Omega-3 Fatty Acids 1 Gm Cap PO SCH ×2 (07:56→19:46)
[2021-05-03] MEDS: metFORMIN 1,000 MG Tab PO SCH ×2 (07:56→17:09)
[2021-05-03] MEDS: Calcium Carbonate/Vitamin D3 1500 MG-400 Units Tab PO SCH (07:58)
[2021-05-03] MEDS: Metoprolol Tartrate 25 MG Tab PO SCH ×2 (07:59→19:47)
[2021-05-03] MEDS: Apixaban 5 MG Tab PO SCH ×2 (07:59→19:47)
[2021-05-03] MEDS: Diltiazem 180 MG Cap.CD PO SCH (07:59)
[2021-05-03] MEDS: Ascorbic Acid 500 MG Tab PO SCH (08:00)
[2021-05-03] MEDS: Pravastatin 40 MG Tab PO SCH (19:46)
[2021-05-03] MEDS: Levothyroxine 150 MCG Tab PO SCH (19:46)
[2021-05-04] MEDS: oxyCODONE 5 MG Tab PO PRN ×2 (01:30→14:43)
[2021-05-04] MEDS: Acetaminophen 325 MG Tab PO PRN ×3 (01:31→19:30)
[2021-05-04] MEDS: Calcium Carbonate/Vitamin D3 1500 MG-400 Units Tab PO SCH (07:46)
[2021-05-04] MEDS: Fish Oil/Omega-3 Fatty Acids 1 Gm Cap PO SCH ×2 (07:46→19:30)
[2021-05-04] MEDS: metFORMIN 1,000 MG Tab PO SCH ×2 (07:47→18:00)
[2021-05-04] MEDS: Diltiazem 180 MG Cap.CD PO SCH (07:48)
[2021-05-04] MEDS: Metoprolol Tartrate 25 MG Tab PO SCH ×2 (07:51→19:31)
[2021-05-04] MEDS: Aspirin 81 MG Tab.EC PO SCH (07:52)
[2021-05-04] MEDS: Ascorbic Acid 500 MG Tab PO SCH (07:53)
[2021-05-04] MEDS: Apixaban 5 MG Tab PO SCH ×2 (07:54→19:30)
[2021-05-04] MEDS: Levothyroxine 150 MCG Tab PO SCH (19:30)
[2021-05-04] MEDS: Pravastatin 40 MG Tab PO SCH (19:30)
[2021-05-05] MEDS: oxyCODONE 5 MG Tab PO PRN ×3 (01:09→23:31)
[2021-05-05] MEDS: Acetaminophen 325 MG Tab PO PRN ×4 (02:34→23:32)
[2021-05-05] MEDS: Fish Oil/Omega-3 Fatty Acids 1 Gm Cap PO SCH ×2 (08:11→19:14)
[2021-05-05] MEDS: Diltiazem 180 MG Cap.CD PO SCH (08:11)
[2021-05-05] MEDS: Calcium Carbonate/Vitamin D3 1500 MG-400 Units Tab PO SCH (08:12)
[2021-05-05] MEDS: Aspirin 81 MG Tab.EC PO SCH (08:12)
[2021-05-05] MEDS: Apixaban 5 MG Tab PO SCH ×2 (08:12→19:14)
[2021-05-05] MEDS: metFORMIN 1,000 MG Tab PO SCH ×2 (08:12→17:31)
[2021-05-05] MEDS: Ascorbic Acid 500 MG Tab PO SCH (08:12)
[2021-05-05] MEDS: Metoprolol Tartrate 25 MG Tab PO SCH ×2 (08:15→19:22)
[2021-05-05] MEDS: Pravastatin 40 MG Tab PO SCH (19:14)
[2021-05-05] MEDS: Levothyroxine 150 MCG Tab PO SCH (19:15)
[2021-05-06] MEDS: Apixaban 5 MG Tab PO SCH ×2 (08:12→19:42)
[2021-05-06] MEDS: Aspirin 81 MG Tab.EC PO SCH (08:12)
[2021-05-06] MEDS: Diltiazem 180 MG Cap.CD PO SCH (08:12)
[2021-05-06] MEDS: metFORMIN 1,000 MG Tab PO SCH ×2 (08:12→17:11)
[2021-05-06] MEDS: Ascorbic Acid 500 MG Tab PO SCH (08:12)
[2021-05-06] MEDS: Fish Oil/Omega-3 Fatty Acids 1 Gm Cap PO SCH ×2 (08:12→19:43)
[2021-05-06] MEDS: Metoprolol Tartrate 25 MG Tab PO SCH ×2 (08:12→19:44)
[2021-05-06] MEDS: Calcium Carbonate/Vitamin D3 1500 MG-400 Units Tab PO SCH (08:12)
--- NOTE | 2021-05-06 10:16 | PCM.HP.2 ---
H&P History of Present Illness - General Date of Service: 05/02/21 Admit Problem/Dx: Admission Diagnosis/Problem Admission Diagnosis/Problem Rehabilitation therapy Source of Information: Patient, Old Records, RN, RN Notes Reviewed History Limitations: Reports: No Limitations - History of Present Illness Initial Comments - Free Text/Narative: This is a 89yo F here post arthroplasty of the right hip for rehabilitation and pain management. She denies any concerns or issues and has her pain under control at this time. No post surgical complications or issues. Location: Reports: Lower Extremity, Right Worsens with: Reports: Movement Associated Symptoms: Reports: No Other Symptoms Right Upper Hip Pain Score (Numeric/FACES): 0 - Related Data Allergies/Adverse Reactions: Allergies Allergy/AdvReac Type Severity Reaction Status Date / Time guaifenesin Allergy Other Verified 05/02/21 18:51 Sulfa (Sulfonamide Allergy Other Verified 05/02/21 18:51 Antibiotics) Home Medications: Home Meds Diltiazem [Diltiazem XR] 2 cap PO DAILY 01/24/21 [History] Levothyroxine 150 mcg PO ACBREAKFAST 01/24/21 [History] hydroCHLOROthiazide [Hydrochlorothiazide] 12.5 mg PO DAILY 01/24/21 [History] metFORMIN [Glucophage] 1,000 mg PO BIDMEALS 01/24/21 [History] Aspirin 81 mg PO DAILY 04/26/21 [History] Calcium Carb/D3/Mag AA Chelate [Coral Calcium Capsule] 1 each PO DAILY 04/26/21 [History] [place]-3 Fatty Acids/Fish Oil [[place]-3 Fish Oil 1,200 mg Sfgl] 1 each PO DAILY 04/26/21 [History] Vitamin E 400 unit PO DAILY 04/26/21 [History] Past Medical History HEENT History: Reports: Cataract, Impaired Vision Cardiovascular History: Reports: Afib, High Cholesterol, Hypertension Gastrointestinal History: Reports: Other (See Below) Other Gastrointestinal History: recent constipation due to narcotics. 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 Musculoskeletal History: Reports: Arthritis, Fracture Endocrine/Metabolic History: Reports: Diabetes, Type II, Hypothyroidism - Infectious Disease History Infectious Disease History: Reports: Chicken Pox, Measles, Mumps - Past Surgical History HEENT Surgical History: Reports: Cataract Surgery Cardiovascular Surgical History: Reports: None GI Surgical History: Reports: Appendectomy, Colonoscopy Other GI Surgeries/Procedures: Long ago, toothpick found in colon - unknown treatment Female Surgical History: Reports: Hysterectomy Endocrine Surgical History: Reports: None Musculoskeletal Surgical History: Reports: Other (See Below) Other Musculoskeletal Surgeries/Procedures:: left hip pinning Social & Family History - Family History Family Medical History: No Pertinent Family History - Tobacco Use Tobacco Use Status *Q: Never Tobacco User - Caffeine Use Caffeine Use: Reports: Coffee - Recreational Drug Use Recreational Drug Use: No H&P Review of Systems - Review of Systems: Review Of Systems: Comprehensive ROS is negative, except as noted in HPI. Exam - Exam Exam: See Below - Vital Signs Vital Signs: Last Vital Signs Temp 36.6 C 05/05/21 19:26 Pulse 113 H 05/06/21 08:12 Resp 18 05/05/21 19:26 BP 116/59 L 05/06/21 08:12 Pulse Ox 98 05/05/21 19:26 Weight: 61.235 kg - Exam General: Alert, Cooperative HEENT: PERRLA, Conjunctiva Clear, EACs Clear Neck: Supple, Trachea Midline Lungs: Clear to Auscultation, Normal Respiratory Effort GI/Abdominal Exam: Normal Bowel Sounds Back Exam: Normal Inspection Extremities: Leg Pain - Patient Data Lab Results Last 24 hrs: Laboratory Results - last 24 hr 05/05/21 Range/Units 22:05 Urine Color Yellow Urine Appearance Slightly cloudy (CLEAR) Urine pH 6.0 (5.0-8.0) Ur Specific [place]lin 1.015 (1.003-1.030) Urine Protein 100 H (NEGATIVE) mg/dL Urine Glucose (UA) Negative (NEGATIVE) mg/dL Urine Ketones Negative (NEGATIVE) mg/dL Urine Occult Blood Large H (NEGATIVE) Urine Nitrite Negative (NEGATIVE) Urine Bilirubin Negative (NEGATIVE) Urine Urobilinogen 0.2 (0.2-1.0) E.U./dL Ur Leukocyte Esterase Trace H (NEGATIVE) Urine RBC 50-75 H /HPF Urine WBC 10-20 H /HPF Urine WBC Clumps Few /HPF Ur Squamous Epith Cells Moderate /HPF Urine Bacteria Few /HPF Urinalysis Comment See note Sepsis Event Note - Evaluation Sepsis Screening Result: No Definite Risk - Focused Exam Vital Signs: Vital Signs Pulse BP 05/06/21 08:12 113 H 116/59 L - Problem List (1) Fracture of neck of femur, hip SNOMED Code(s): 7213668 ICD Code: S72.009A - FRACTURE OF UNSP PART OF NECK OF UNSP FEMUR, INIT Status: Acute Priority: Medium Current Visit: Yes (2) Pain management SNOMED Code(s): 785205724 ICD Code: R52 - PAIN, UNSPECIFIED Status: Acute Priority: High Current Visit: Yes Problem List Initiated/Reviewed/Updated: Yes Orders Last 24hrs: Active Orders 24 hr Category Date Time Status CULTURE URINE [RM] Routine Lab 05/05/21 22:05 Received Code Status [Resuscitation Status] Routine Resus Stat 05/05/21 17:05 Ordered Medication Orders Acetaminophen (Acetaminophen 325 Mg Tab) 650 mg PO Q4H PRN PRN Reason: MILD PAIN Last Admin: 05/05/21 23:32 Dose: 650 mg Documented by: Admin: 05/05/21 19:15 Dose: 650 mg Documented by: Admin: 05/05/21 13:07 Dose: 650 mg Documented by: Admin: 05/05/21 02:34 Dose: 650 mg Documented by: Admin: 05/04/21 19:30 Dose: 650 mg Documented by: Admin: 05/04/21 12:20 Dose: 650 mg Documented by: Admin: 05/04/21 01:31 Dose: 650 mg Documented by: Admin: 05/03/21 19:47 Dose: 650 mg Documented by: Admin: 05/03/21 01:18 Dose: 650 mg Documented by: KELVIN Apixaban (Apixaban 5 Mg Tab) 5 mg PO BID [facility] Last Admin: 05/06/21 08:12 Dose: 5 mg Documented by: Admin: 05/05/21 19:14 Dose: 5 mg Documented by: Admin: 05/05/21 08:12 Dose: 5 mg Documented by: Admin: 05/04/21 19:30 Dose: 5 mg Documented by: Admin: 05/04/21 07:54 Dose: 5 mg Documented by: Admin: 05/03/21 19:47 Dose: 5 mg Documented by: Admin: 05/03/21 07:59 Dose: 5 mg Documented by: Admin: 05/02/21 20:52 Dose: 5 mg Documented by: KELVIN Ascorbic Acid (Ascorbic Acid 500 Mg Tab) 250 mg PO DAILY [facility] Admin: 05/06/21 08:12 Dose: 250 mg Documented by: Admin: 05/05/21 08:12 Dose: 250 mg Documented by: Admin: 05/04/21 07:53 Dose: 250 mg Documented by: Admin: 05/03/21 08:00 Dose: 250 mg Documented by: DAVID Aspirin (Aspirin 81 Mg Tab.Ec) 81 mg PO DAILY [facility] Admin: 05/06/21 08:12 Dose: 81 mg Documented by: Admin: 05/05/21 08:12 Dose: 81 mg Documented by: Admin: 05/04/21 07:52 Dose: 81 mg Documented by: Admin: 05/03/21 07:56 Dose: 81 mg Documented by: DAVID Calcium Carbonate (Calcium Carbonate/Vitamin D3 1500 Mg-400 Units Tab) 1 tab PO DAILY [facility] Admin: 05/06/21 08:12 Dose: 1 tab Documented by: Admin: 05/05/21 08:12 Dose: 1 tab Documented by: Admin: 05/04/21 07:46 Dose: 1 tab Documented by: Admin: 05/03/21 07:58 Dose: 1 tab Documented by: DAVID Diltiazem HCl (Diltiazem 180 Mg Cap.Cd) 360 mg PO DAILY [facility] Admin: 05/06/21 08:12 Dose: 360 mg Documented by: Admin: 05/05/21 08:11 Dose: 360 mg Documented by: Admin: 05/04/21 07:48 Dose: 360 mg Documented by: Admin: 05/03/21 07:59 Dose: 360 mg Documented by: DAVID Fish Oil (Fish Oil/[place]-3 Fatty Acids 1 Gm Cap) 1 gm PO BID [facility] Admin: 05/06/21 08:12 Dose: 1 gm Documented by: Admin: 05/05/21 19:14 Dose: 1 gm Documented by: Admin: 05/05/21 08:11 Dose: 1 gm Documented by: Admin: 05/04/21 19:30 Dose: 1 gm Documented by: Admin: 05/04/21 07:46 Dose: 1 gm Documented by: Admin: 05/03/21 19:46 Dose: 1 gm Documented by: Admin: 05/03/21 07:56 Dose: 1 gm Documented by: Admin: 05/02/21 20:49 Dose: 1 gm Documented by: KELVIN Levothyroxine Sodium (Levothyroxine 150 Mcg Tab) 150 mcg PO QPM [facility] Admin: 05/05/21 19:15 Dose: 150 mcg Documented by: Admin: 05/04/21 19:30 Dose: 150 mcg Documented by: Admin: 05/03/21 19:46 Dose: 150 mcg Documented by: Admin: 05/02/21 20:52 Dose: 150 mcg Documented by: KELVIN Metformin HCl (Metformin 1,000 Mg Tab) 1,000 mg PO BIDMEALS [facility] Admin: 05/06/21 08:12 Dose: 1,000 mg Documented by: Admin: 05/05/21 17:31 Dose: 1,000 mg Documented by: Admin: 05/05/21 08:12 Dose: 1,000 mg Documented by: Admin: 05/04/21 18:00 Dose: 1,000 mg Documented by: Admin: 05/04/21 07:47 Dose: 1,000 mg Documented by: Admin: 05/03/21 17:09 Dose: 1,000 mg Documented by: Admin: 05/03/21 07:56 Dose: 1,000 mg Documented by: Admin: 05/02/21 17:17 Dose: 1,000 mg Documented by: ELLIOTT Metoprolol Tartrate (Metoprolol Tartrate 25 Mg Tab) 25 mg PO BID [facility] Admin: 05/06/21 08:12 Dose: 25 mg Documented by: Admin: 05/05/21 19:22 Dose: 25 mg Documented by: Admin: 05/05/21 08:15 Dose: 25 mg Documented by: Admin: 05/04/21 19:31 Dose: 25 mg Documented by: Admin: 05/04/21 07:51 Dose: 25 mg Documented by: Admin: 05/03/21 19:47 Dose: 25 mg Documented by: Admin: 05/03/21 07:59 Dose: 25 mg Documented by: Admin: 05/02/21 20:50 Dose: 25 mg Documented by: KELVIN Pravastatin Sodium (Pravastatin 40 Mg Tab) 40 mg PO BEDTIME [facility] Admin: 05/05/21 19:14 Dose: 40 mg Documented by: Admin: 05/04/21 19:30 Dose: 40 mg Documented by: Admin: 05/03/21 19:46 Dose: 40 mg Documented by: Admin: 05/02/21 20:53 Dose: 40 mg Documented by: KELVIN Assessment/Plan Comment:: Patient to be admitted for 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 Pain management as scheduled and f/u reassessment as routine. F/u Orthopedics as scheduled.
[2021-05-06] MEDS: Acetaminophen 325 MG Tab PO PRN ×2 (11:32→19:42)
[2021-05-06] MEDS ORDERED: CARDIO-PLUS PO SCH (13:15)
[2021-05-06] MEDS ORDERED: CATAPLEX E PO SCH ×2 (13:15)
[2021-05-06] MEDS: Ciprofloxacin 500 MG Tab PO SCH ×2 (15:01→19:42)
[2021-05-06] MEDS: Levothyroxine 150 MCG Tab PO SCH (19:43)
[2021-05-06] MEDS: Pravastatin 40 MG Tab PO SCH (19:43)
[2021-05-06] MEDS: Melatonin 3 MG Tab PO PRN (19:44)
[2021-05-07] MEDS: Acetaminophen 325 MG Tab PO PRN ×3 (00:04→20:16)
[2021-05-07] MEDS: Metoprolol Tartrate 25 MG Tab PO SCH ×2 (08:00→20:16)
[2021-05-07] MEDS: Fish Oil/Omega-3 Fatty Acids 1 Gm Cap PO SCH ×2 (08:01→20:17)
[2021-05-07] MEDS: Calcium Carbonate/Vitamin D3 1500 MG-400 Units Tab PO SCH (08:01)
[2021-05-07] MEDS: Apixaban 5 MG Tab PO SCH ×2 (08:01→20:16)
[2021-05-07] MEDS: Aspirin 81 MG Tab.EC PO SCH (08:01)
[2021-05-07] MEDS: Ascorbic Acid 500 MG Tab PO SCH (08:02)
[2021-05-07] MEDS: Diltiazem 180 MG Cap.CD PO SCH (08:03)
[2021-05-07] MEDS: metFORMIN 1,000 MG Tab PO SCH ×2 (08:03→17:24)
[2021-05-07] MEDS: IMMUPLEX PO SCH (08:04)
[2021-05-07] MEDS: Ciprofloxacin 500 MG Tab PO SCH ×2 (08:04→20:17)
[2021-05-07] MEDS: Zolpidem 5 MG Tab PO PRN (20:15)
[2021-05-07] MEDS: Pravastatin 40 MG Tab PO SCH (20:16)
[2021-05-07] MEDS: Melatonin 3 MG Tab PO PRN (20:17)
[2021-05-07] MEDS: Levothyroxine 150 MCG Tab PO SCH (20:17)
[2021-05-07] MEDS: diphenhydrAMINE 25 MG Cap PO SCH (20:17)
[2021-05-08] MEDS: Calcium Carbonate/Vitamin D3 1500 MG-400 Units Tab PO SCH (08:03)
[2021-05-08] MEDS: Aspirin 81 MG Tab.EC PO SCH (08:03)
[2021-05-08] MEDS: Metoprolol Tartrate 25 MG Tab PO SCH ×2 (08:03→19:40)
[2021-05-08] MEDS: Ciprofloxacin 500 MG Tab PO SCH ×2 (08:04→19:40)
[2021-05-08] MEDS: metFORMIN 1,000 MG Tab PO SCH ×2 (08:04→17:31)
[2021-05-08] MEDS: Diltiazem 180 MG Cap.CD PO SCH (08:04)
[2021-05-08] MEDS: Fish Oil/Omega-3 Fatty Acids 1 Gm Cap PO SCH ×2 (08:04→19:40)
[2021-05-08] MEDS: Ascorbic Acid 500 MG Tab PO SCH (08:05)
[2021-05-08] MEDS: CARDIO-PLUS PO SCH (08:05)
[2021-05-08] MEDS: Apixaban 5 MG Tab PO SCH ×2 (08:05→19:39)
[2021-05-08] MEDS: IMMUPLEX PO SCH (08:06)
[2021-05-08] MEDS: Acetaminophen 325 MG Tab PO PRN ×2 (19:38→23:48)
[2021-05-08] MEDS: Levothyroxine 150 MCG Tab PO SCH (19:39)
[2021-05-08] MEDS: Melatonin 3 MG Tab PO PRN (19:39)
[2021-05-08] MEDS: diphenhydrAMINE 25 MG Cap PO SCH (19:40)
[2021-05-08] MEDS: Pravastatin 40 MG Tab PO SCH (19:45)
[2021-05-08] MEDS: Zolpidem 5 MG Tab PO PRN (23:49)
[2021-05-09] MEDS: IMMUPLEX PO SCH (08:34)
[2021-05-09] MEDS: Ascorbic Acid 500 MG Tab PO SCH (08:34)
[2021-05-09] MEDS: Aspirin 81 MG Tab.EC PO SCH (08:34)
[2021-05-09] MEDS: Ciprofloxacin 500 MG Tab PO SCH ×2 (08:34→19:11)
[2021-05-09] MEDS: Metoprolol Tartrate 25 MG Tab PO SCH ×2 (08:35→19:14)
[2021-05-09] MEDS: Calcium Carbonate/Vitamin D3 1500 MG-400 Units Tab PO SCH (08:35)
[2021-05-09] MEDS: Fish Oil/Omega-3 Fatty Acids 1 Gm Cap PO SCH ×2 (08:35→19:10)
[2021-05-09] MEDS: metFORMIN 1,000 MG Tab PO SCH ×2 (08:35→17:16)
[2021-05-09] MEDS: Apixaban 5 MG Tab PO SCH ×2 (08:35→19:11)
[2021-05-09] MEDS: Diltiazem 180 MG Cap.CD PO SCH (08:35)
[2021-05-09] MEDS: Acetaminophen 325 MG Tab PO PRN ×2 (11:11→19:11)
[2021-05-09] MEDS: Levothyroxine 150 MCG Tab PO SCH (19:10)
[2021-05-09] MEDS: Pravastatin 40 MG Tab PO SCH (19:10)
[2021-05-09] MEDS: Melatonin 3 MG Tab PO PRN (19:11)
[2021-05-09] MEDS: diphenhydrAMINE 25 MG Cap PO SCH (19:11)
[2021-05-10] MEDS: Acetaminophen 325 MG Tab PO PRN ×2 (05:31→19:41)
[2021-05-10] MEDS: IMMUPLEX PO SCH (07:31)
[2021-05-10] MEDS: metFORMIN 1,000 MG Tab PO SCH ×2 (07:32→16:39)
[2021-05-10] MEDS: Metoprolol Tartrate 25 MG Tab PO SCH ×2 (07:32→19:44)
[2021-05-10] MEDS: Apixaban 5 MG Tab PO SCH ×2 (07:32→19:44)
[2021-05-10] MEDS: Aspirin 81 MG Tab.EC PO SCH (07:32)
[2021-05-10] MEDS: Diltiazem 180 MG Cap.CD PO SCH (07:32)
[2021-05-10] MEDS: Ciprofloxacin 500 MG Tab PO SCH ×2 (07:32→19:44)
[2021-05-10] MEDS: Fish Oil/Omega-3 Fatty Acids 1 Gm Cap PO SCH ×2 (07:32→19:44)
[2021-05-10] MEDS: Calcium Carbonate/Vitamin D3 1500 MG-400 Units Tab PO SCH (07:32)
[2021-05-10] MEDS: Ascorbic Acid 500 MG Tab PO SCH (07:32)
--- NOTE | 2021-05-10 09:05 | PCM.PN ---
- General Info Date of Service: 05/10/21 Functional Status: Reports: Pain Controlled, Tolerating Diet - Review of Systems General: Reports: Weakness HEENT: Reports: No Symptoms Pulmonary: Reports: No Symptoms Cardiovascular: Reports: No Symptoms Gastrointestinal: Reports: No Symptoms Genitourinary: Reports: No Symptoms Musculoskeletal: Reports: Joint Pain Skin: Reports: No Symptoms Neurological: Reports: No Symptoms Psychiatric: Reports: No Symptoms Systems Review Comment:: Sleep concerns - unable to sleep at night Bed uncomfortable as well - Patient Data Vitals - Most Recent: Last Vital Signs Temp 36.4 C 05/10/21 07:48 Pulse 116 H 05/10/21 07:48 Resp 18 05/10/21 07:48 BP 122/62 05/10/21 07:48 Pulse Ox 97 05/10/21 07:48 Weight - Most Recent: 62.505 kg Lab Results Last 24 Hours: Laboratory Results - last 24 hr 05/10/21 Range/Units 07:30 POC Glucose 143 H (74-110) mg/dL Med Orders - Current: Current Medications Acetaminophen (Acetaminophen 325 Mg Tab) 650 mg PO Q4H PRN PRN Reason: MILD PAIN Last Admin: 05/10/21 05:31 Dose: 650 mg Documented by: Apixaban (Apixaban 5 Mg Tab) 5 mg PO BID [facility] Last Admin: 05/10/21 07:32 Dose: 5 mg Documented by: Ascorbic Acid (Ascorbic Acid 500 Mg Tab) 250 mg PO DAILY [facility] Last Admin: 05/10/21 07:32 Dose: 250 mg Documented by: Aspirin (Aspirin 81 Mg Tab.Ec) 81 mg PO DAILY [facility] Last Admin: 05/10/21 07:32 Dose: 81 mg Documented by: Calcium Carbonate (Calcium Carbonate/Vitamin D3 1500 Mg-400 Units Tab) 1 tab PO DAILY [facility] Last Admin: 05/10/21 07:32 Dose: 1 tab Documented by: Ciprofloxacin (Ciprofloxacin 500 Mg Tab) 500 mg PO BID [facility] Stop: 05/11/21 13:46 Last Admin: 05/10/21 07:32 Dose: 500 mg Documented by: Diltiazem HCl (Diltiazem 180 Mg Cap.Cd) 360 mg PO DAILY [facility] Last Admin: 05/10/21 07:32 Dose: 360 mg Documented by: Diphenhydramine HCl (Diphenhydramine 25 Mg Cap) 25 mg PO BEDTIME [facility] Last Admin: 05/09/21 19:11 Dose: 25 mg Documented by: Fish Oil (Fish Oil/[place]-3 Fatty Acids 1 Gm Cap) 1 gm PO BID [facility] Last Admin: 05/10/21 07:32 Dose: 1 gm Documented by: Levothyroxine Sodium (Levothyroxine 150 Mcg Tab) 150 mcg PO QPM [facility] Last Admin: 05/09/21 19:10 Dose: 150 mcg Documented by: Melatonin (Melatonin 3 Mg Tab) 6 mg PO BEDTIME PRN PRN Reason: Insomnia Last Admin: 05/09/21 19:11 Dose: 6 mg Documented by: Metformin HCl (Metformin 1,000 Mg Tab) 1,000 mg PO BIDMEALS [facility] Last Admin: 05/10/21 07:32 Dose: 1,000 mg Documented by: Metoprolol Tartrate (Metoprolol Tartrate 25 Mg Tab) 25 mg PO BID [facility] Last Admin: 05/10/21 07:32 Dose: 25 mg Documented by: Immuplex 2 each PO DAILY [facility] Last Admin: 05/10/21 07:31 Dose: 2 each Documented by: Cataplex E 2 each PO ASDIRECTED [facility] Cardio-Plus 2 each PO ASDIRECTED [facility] Last Admin: 05/08/21 08:05 Dose: 2 each Documented by: Pravastatin Sodium (Pravastatin 40 Mg Tab) 40 mg PO BEDTIME [facility] Last Admin: 05/09/21 19:10 Dose: 40 mg Documented by: Zolpidem Tartrate (Zolpidem 5 Mg Tab) 5 mg PO BEDTIME PRN PRN Reason: Insomnia Last Admin: 05/08/21 23:49 Dose: 5 mg Documented by: Discontinued Medications Cataplex E 0 each PO ASDIRECTED [facility] Cardio-Plus 0 each PO ASDIRECTED [facility] Oxycodone HCl (Oxycodone 5 Mg Tab) 5 mg PO Q6H PRN PRN Reason: MODERATE PAIN Stop: 05/05/21 23:59 Last Admin: 05/05/21 23:31 Dose: 5 mg Documented by: Tuberculin PPD (Tuberculin, Ppd 5 Units/0.1 Ml 1 Ml Mdv) 5 unit IDERM ONETIME ONE Stop: 05/02/21 16:48 Last Admin: 05/02/21 18:13 Dose: 5 unit Documented by: - Exam General: Alert, Oriented, Cooperative HEENT: Pupils Equal, Pupils Reactive, EOMI Neck: Supple Lungs: Clear to Auscultation, Normal Respiratory Effort Cardiovascular: Regular Rate, Regular Rhythm GI/Abdominal Exam: Normal Bowel Sounds Back Exam: Normal Inspection Extremities: Normal Inspection Skin: Warm, Dry, Intact Wound/Incisions: Healing Well Neurological: No New Focal Deficit Psy/Mental Status: Alert, Normal Affect, Normal Mood - Patient Data Lab Results Last 24 hrs: Laboratory Results - last 24 hr 05/10/21 Range/Units 07:30 POC Glucose 143 H (74-110) mg/dL Sepsis Event Note - Evaluation Sepsis Screening Result: No Definite Risk - Focused Exam Vital Signs: Vital Signs Temp Pulse Pulse Resp BP BP Pulse Ox 05/10/21 07:48 36.4 C 116 H 18 122/62 97 05/10/21 07:32 116 H 122/62 - Problem List & Annotations (1) Fracture of neck of femur, hip SNOMED Code(s): 8111564 Code(s): S72.009A - FRACTURE OF UNSP PART OF NECK OF UNSP FEMUR, INIT Status: Acute Priority: Medium Current Visit: Yes (2) Pain management SNOMED Code(s): 170413126 Code(s): R52 - PAIN, UNSPECIFIED Status: Acute Priority: High Current Visit: Yes - Problem List Review Problem List Initiated/Reviewed/Updated: Yes - Plan Plan:: Patient to be admitted for 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 Pain management as scheduled and f/u reassessment as routine. F/u Orthopedics as scheduled. 05/10/21 Continue PT/OT rehabilitation. Adjustment of sleep aids. Adjustment of bedding/mattress. No other medication changes. Pain controlled.
[2021-05-10] MEDS: Levothyroxine 150 MCG Tab PO SCH (19:44)
[2021-05-10] MEDS: Pravastatin 40 MG Tab PO SCH (19:44)
[2021-05-10] MEDS ORDERED: diphenhydrAMINE 50 MG Cap PO SCH (20:00)
[2021-05-10] MEDS: Zolpidem 5 MG Tab PO PRN (22:07)
[2021-05-11] MEDS: Aspirin 81 MG Tab.EC PO SCH (08:26)
[2021-05-11] MEDS: Fish Oil/Omega-3 Fatty Acids 1 Gm Cap PO SCH ×2 (08:26→20:06)
[2021-05-11] MEDS: Ascorbic Acid 500 MG Tab PO SCH (08:26)
[2021-05-11] MEDS: Calcium Carbonate/Vitamin D3 1500 MG-400 Units Tab PO SCH (08:26)
[2021-05-11] MEDS: Ciprofloxacin 500 MG Tab PO SCH (08:26)
[2021-05-11] MEDS: Metoprolol Tartrate 25 MG Tab PO SCH ×2 (08:27→20:08)
[2021-05-11] MEDS: Apixaban 5 MG Tab PO SCH ×2 (08:27→20:07)
[2021-05-11] MEDS: metFORMIN 1,000 MG Tab PO SCH ×2 (08:27→16:32)
[2021-05-11] MEDS: IMMUPLEX PO SCH (08:27)
[2021-05-11] MEDS: Diltiazem 180 MG Cap.CD PO SCH (08:27)
[2021-05-11] MEDS: CARDIO-PLUS PO SCH (08:28)
--- NOTE | 2021-05-11 12:12 | CR ---
Date of Service: 05/11/21 Clinical Data: pain RIGHT HIP: Comparison is made to a prior exam dated 04/26/21. Patient is status post right total hip arthroplasty. The prosthesis appears intact. There are cutaneous tigist lateral to the hip joint. Otherwise negative. [id number] [facility]
[2021-05-11] MEDS ORDERED: Levofloxacin 500 MG Tab PO ONE (16:00)
[2021-05-11] MEDS: Acetaminophen 325 MG Tab PO PRN (20:05)
[2021-05-11] MEDS: Pravastatin 40 MG Tab PO SCH (20:06)
[2021-05-11] MEDS: traZODone 50 MG Tab PO SCH (20:07)
[2021-05-11] MEDS: Levothyroxine 150 MCG Tab PO SCH (20:07)
[2021-05-12] MEDS: Fish Oil/Omega-3 Fatty Acids 1 Gm Cap PO SCH ×2 (07:58→19:37)
[2021-05-12] MEDS: Acetaminophen 325 MG Tab PO PRN ×2 (07:58→19:38)
[2021-05-12] MEDS: metFORMIN 1,000 MG Tab PO SCH ×2 (07:59→17:11)
[2021-05-12] MEDS: Diltiazem 180 MG Cap.CD PO SCH (08:00)
[2021-05-12] MEDS: Metoprolol Tartrate 25 MG Tab PO SCH ×2 (08:00→19:37)
[2021-05-12] MEDS: Ascorbic Acid 500 MG Tab PO SCH (08:00)
[2021-05-12] MEDS ORDERED: Non-Formulary Medication 1 Each PO SCH ×4 (08:00)
[2021-05-12] MEDS: Lactobacillus Acidophilus/Lactobacillus Sporogenes (Probiotic) Tab PO SCH (08:01)
[2021-05-12] MEDS: Aspirin 81 MG Tab.EC PO SCH (08:01)
[2021-05-12] MEDS: Apixaban 5 MG Tab PO SCH ×2 (08:02→19:37)
[2021-05-12] MEDS: Calcium Carbonate/Vitamin D3 1500 MG-400 Units Tab PO SCH (08:02)
[2021-05-12] MEDS: Phenazopyridine 100 MG Tab PO SCH ×2 (12:56→17:15)
[2021-05-12] MEDS: Levofloxacin 500 MG Tab PO SCH (17:12)
[2021-05-12] MEDS: CARDIO-PLUS PO SCH (17:12)
[2021-05-12] MEDS: [UNRECOGNIZED DRUG - OTHER] PO SCH (17:13)
[2021-05-12] MEDS: IMMUPLEX PO SCH (17:13)
[2021-05-12] MEDS: CATAPLEX E2 PO SCH (17:13)
[2021-05-12] MEDS: Levothyroxine 150 MCG Tab PO SCH (19:36)
[2021-05-12] MEDS: traZODone 50 MG Tab PO SCH (19:36)
[2021-05-12] MEDS: Pravastatin 40 MG Tab PO SCH (19:36)
[2021-05-13] MEDS: Acetaminophen 325 MG Tab PO PRN ×2 (02:12→17:20)
[2021-05-13] MEDS: Fish Oil/Omega-3 Fatty Acids 1 Gm Cap PO SCH ×2 (07:30→19:44)
[2021-05-13] MEDS: metFORMIN 1,000 MG Tab PO SCH ×2 (07:30→17:20)
[2021-05-13] MEDS: Calcium Carbonate/Vitamin D3 1500 MG-400 Units Tab PO SCH (07:30)
[2021-05-13] MEDS: Diltiazem 180 MG Cap.CD PO SCH (07:30)
[2021-05-13] MEDS: Aspirin 81 MG Tab.EC PO SCH (07:31)
[2021-05-13] MEDS: Ascorbic Acid 500 MG Tab PO SCH (07:31)
[2021-05-13] MEDS: Metoprolol Tartrate 25 MG Tab PO SCH ×2 (07:32→19:46)
[2021-05-13] MEDS: Apixaban 5 MG Tab PO SCH ×2 (07:32→19:46)
[2021-05-13] MEDS: Lactobacillus Acidophilus/Lactobacillus Sporogenes (Probiotic) Tab PO SCH (07:32)
[2021-05-13] MEDS: CARDIO-PLUS PO SCH ×3 (07:33→17:22)
[2021-05-13] MEDS: CATAPLEX E2 PO SCH ×3 (07:33→17:22)
[2021-05-13] MEDS: [UNRECOGNIZED DRUG - OTHER] PO SCH ×3 (07:33→17:21)
[2021-05-13] MEDS: IMMUPLEX PO SCH ×3 (07:34→17:21)
[2021-05-13] MEDS: Phenazopyridine 100 MG Tab PO SCH ×3 (07:34→19:04)
[2021-05-13] MEDS: Levofloxacin 500 MG Tab PO SCH (17:20)
[2021-05-13] MEDS: traZODone 50 MG Tab PO SCH (19:45)
[2021-05-13] MEDS: Pravastatin 40 MG Tab PO SCH (19:46)
[2021-05-14] MEDS: Levothyroxine 150 MCG Tab PO SCH ×2 (06:35→06:39)
[2021-05-14] MEDS: Diltiazem 180 MG Cap.CD PO SCH (08:59)
[2021-05-14] MEDS: Lactobacillus Acidophilus/Lactobacillus Sporogenes (Probiotic) Tab PO SCH (08:59)
[2021-05-14] MEDS: Calcium Carbonate/Vitamin D3 1500 MG-400 Units Tab PO SCH (08:59)
[2021-05-14] MEDS: Phenazopyridine 100 MG Tab PO SCH ×2 (09:00→11:54)
[2021-05-14] MEDS: [UNRECOGNIZED DRUG - OTHER] PO SCH ×3 (09:00→17:59)
[2021-05-14] MEDS: metFORMIN 1,000 MG Tab PO SCH ×2 (09:00→16:56)
[2021-05-14] MEDS: Fish Oil/Omega-3 Fatty Acids 1 Gm Cap PO SCH ×2 (09:00→20:07)
[2021-05-14] MEDS: Aspirin 81 MG Tab.EC PO SCH (09:00)
[2021-05-14] MEDS: CARDIO-PLUS PO SCH ×3 (09:00→17:59)
[2021-05-14] MEDS: CATAPLEX E2 PO SCH ×3 (09:00→17:59)
[2021-05-14] MEDS: IMMUPLEX PO SCH ×3 (09:00→17:59)
[2021-05-14] MEDS: Apixaban 5 MG Tab PO SCH ×2 (09:00→20:06)
[2021-05-14] MEDS: Metoprolol Tartrate 25 MG Tab PO SCH ×2 (09:00→20:07)
[2021-05-14] MEDS: Ascorbic Acid 500 MG Tab PO SCH (09:01)
[2021-05-14] MEDS: Levofloxacin 500 MG Tab PO SCH (16:55)
[2021-05-14] MEDS: traZODone 50 MG Tab PO SCH (19:57)
[2021-05-14] MEDS: Pravastatin 40 MG Tab PO SCH (19:59)
[2021-05-14] MEDS: Acetaminophen 325 MG Tab PO PRN (20:07)
[2021-05-15] MEDS: Fish Oil/Omega-3 Fatty Acids 1 Gm Cap PO SCH ×2 (09:05→19:32)
[2021-05-15] MEDS: Calcium Carbonate/Vitamin D3 1500 MG-400 Units Tab PO SCH (09:05)
[2021-05-15] MEDS: Apixaban 5 MG Tab PO SCH ×2 (09:05→19:33)
[2021-05-15] MEDS: Levothyroxine 150 MCG Tab PO SCH (09:05)
[2021-05-15] MEDS: metFORMIN 1,000 MG Tab PO SCH ×2 (09:05→17:03)
[2021-05-15] MEDS: Ascorbic Acid 500 MG Tab PO SCH (09:06)
[2021-05-15] MEDS: Lactobacillus Acidophilus/Lactobacillus Sporogenes (Probiotic) Tab PO SCH (09:06)
[2021-05-15] MEDS: Metoprolol Tartrate 25 MG Tab PO SCH ×2 (09:06→19:33)
[2021-05-15] MEDS: Aspirin 81 MG Tab.EC PO SCH (09:06)
[2021-05-15] MEDS: Diltiazem 180 MG Cap.CD PO SCH (09:07)
[2021-05-15] MEDS: CATAPLEX E2 PO SCH ×3 (09:07→17:03)
[2021-05-15] MEDS: IMMUPLEX PO SCH ×3 (09:08→17:03)
[2021-05-15] MEDS: [UNRECOGNIZED DRUG - OTHER] PO SCH ×3 (09:08→17:03)
[2021-05-15] MEDS: CARDIO-PLUS PO SCH ×3 (09:08→17:03)
[2021-05-15] MEDS: Levofloxacin 500 MG Tab PO SCH (17:03)
[2021-05-15] MEDS: Pravastatin 40 MG Tab PO SCH (19:32)
[2021-05-15] MEDS: traZODone 50 MG Tab PO SCH (19:33)
[2021-05-16] MEDS: Levothyroxine 150 MCG Tab PO SCH (06:19)
[2021-05-16] MEDS: metFORMIN 1,000 MG Tab PO SCH ×2 (08:32→16:53)
[2021-05-16] MEDS: Ascorbic Acid 500 MG Tab PO SCH (08:32)
[2021-05-16] MEDS: Lactobacillus Acidophilus/Lactobacillus Sporogenes (Probiotic) Tab PO SCH (08:32)
[2021-05-16] MEDS: Aspirin 81 MG Tab.EC PO SCH (08:32)
[2021-05-16] MEDS: Fish Oil/Omega-3 Fatty Acids 1 Gm Cap PO SCH ×2 (08:33→19:30)
[2021-05-16] MEDS: Metoprolol Tartrate 25 MG Tab PO SCH ×2 (08:33→19:31)
[2021-05-16] MEDS: Diltiazem 180 MG Cap.CD PO SCH (08:33)
[2021-05-16] MEDS: Apixaban 5 MG Tab PO SCH ×2 (08:34→19:31)
[2021-05-16] MEDS: Calcium Carbonate/Vitamin D3 1500 MG-400 Units Tab PO SCH (08:34)
[2021-05-16] MEDS: [UNRECOGNIZED DRUG - OTHER] PO SCH ×3 (08:36→17:19)
[2021-05-16] MEDS: CARDIO-PLUS PO SCH ×3 (08:36→17:19)
[2021-05-16] MEDS: CATAPLEX E2 PO SCH ×3 (08:37→17:19)
[2021-05-16] MEDS: IMMUPLEX PO SCH ×3 (08:37→17:19)
--- NOTE | 2021-05-16 08:51 | PCM.PN ---
- General Info Date of Service: 05/16/21 Subjective Update: Patient stable with continued difficulty sleeping at night. Family do not want her too groggy from sleep meds. Patient having trouble falling asleep but also feels sleeping during the day. She wakes up for the bathroom at night as well that ruins her sleep. Patient notes she has too much on her mind like the need to sell her house and other concerns. Functional Status: Reports: Pain Controlled, Tolerating Diet - Review of Systems General: Reports: Weakness HEENT: Reports: No Symptoms Pulmonary: Reports: No Symptoms Cardiovascular: Reports: No Symptoms Gastrointestinal: Reports: No Symptoms Genitourinary: Reports: No Symptoms Musculoskeletal: Reports: Joint Pain Psychiatric: Reports: No Symptoms - Patient Data Vitals - Most Recent: Last Vital Signs Temp 36.6 C 05/15/21 09:09 Pulse 105 H 05/16/21 08:33 Resp 18 05/15/21 09:09 BP 127/75 05/16/21 08:33 Pulse Ox 97 05/15/21 09:09 Weight - Most Recent: 62.505 kg Med Orders - Current: Current Medications Acetaminophen (Acetaminophen 325 Mg Tab) 650 mg PO Q4H PRN PRN Reason: MILD PAIN Last Admin: 05/14/21 20:07 Dose: 650 mg Documented by: Apixaban (Apixaban 5 Mg Tab) 5 mg PO BID [facility] Last Admin: 05/16/21 08:34 Dose: 5 mg Documented by: Ascorbic Acid (Ascorbic Acid 500 Mg Tab) 250 mg PO DAILY [facility] Last Admin: 05/16/21 08:32 Dose: 250 mg Documented by: Aspirin (Aspirin 81 Mg Tab.Ec) 81 mg PO DAILY [facility] Last Admin: 05/16/21 08:32 Dose: 81 mg Documented by: Calcium Carbonate (Calcium Carbonate/Vitamin D3 1500 Mg-400 Units Tab) 1 tab PO DAILY [facility] Last Admin: 05/16/21 08:34 Dose: 1 tab Documented by: Diltiazem HCl (Diltiazem 180 Mg Cap.Cd) 360 mg PO DAILY [facility] Last Admin: 05/16/21 08:33 Dose: 360 mg Documented by: Fish Oil (Fish Oil/[place]-3 Fatty Acids 1 Gm Cap) 1 gm PO BID [facility] Last Admin: 05/16/21 08:33 Dose: 1 gm Documented by: Lactobacillus Acidophilus (Lactobacillus Acidophilus/Lactobacillus Sporogenes (Probiotic) Tab) 1 tab PO DAILY [facility] Last Admin: 05/16/21 08:32 Dose: 1 tab Documented by: Levothyroxine Sodium (Levothyroxine 150 Mcg Tab) 150 mcg PO DAILY@0700 [facility] Last Admin: 05/16/21 06:19 Dose: 150 mcg Documented by: Metformin HCl (Metformin 1,000 Mg Tab) 1,000 mg PO BIDMEALS [facility] Last Admin: 05/16/21 08:32 Dose: 1,000 mg Documented by: Metoprolol Tartrate (Metoprolol Tartrate 25 Mg Tab) 25 mg PO BID [facility] Last Admin: 05/16/21 08:33 Dose: 25 mg Documented by: Immuplex 1 each PO TIDMEALS [facility] Last Admin: 05/16/21 08:37 Dose: 1 each Documented by: Cataplex E2 1 each PO TIDMEALS [facility] Last Admin: 05/16/21 08:37 Dose: 1 each Documented by: Cardio-Plus 1 each PO TIDMEALS [facility] Last Admin: 05/16/21 08:36 Dose: 1 each Documented by: Martina Gf 1 each PO TIDMEALS [facility] Last Admin: 05/16/21 08:36 Dose: 1 each Documented by: Pravastatin Sodium (Pravastatin 40 Mg Tab) 40 mg PO BEDTIME [facility] Last Admin: 05/15/21 19:32 Dose: 40 mg Documented by: Trazodone HCl (Trazodone 50 Mg Tab) 25 mg PO BEDTIME [facility] Last Admin: 05/15/21 19:33 Dose: 25 mg Documented by: Discontinued Medications Ciprofloxacin (Ciprofloxacin 500 Mg Tab) 500 mg PO BID [facility] Stop: 05/11/21 13:46 Last Admin: 05/11/21 08:26 Dose: 500 mg Documented by: Diphenhydramine HCl (Diphenhydramine 25 Mg Cap) 25 mg PO BEDTIME [facility] Last Admin: 05/09/21 19:11 Dose: 25 mg Documented by: Diphenhydramine HCl (Diphenhydramine 50 Mg Cap) 50 mg PO BEDTIME [facility] Last Admin: 05/10/21 19:41 Dose: 50 mg Documented by: Levofloxacin (Levofloxacin 500 Mg Tab) 250 mg PO Q24H [facility] Stop: 05/15/21 16:01 Last Admin: 05/15/21 17:03 Dose: 250 mg Documented by: Levofloxacin (Levofloxacin 500 Mg Tab) 500 mg PO ONETIME ONE Stop: 05/11/21 16:01 Last Admin: 05/11/21 16:32 Dose: 500 mg Documented by: Levothyroxine Sodium (Levothyroxine 150 Mcg Tab) 150 mcg PO QPM [facility] Last Admin: 05/14/21 06:39 Dose: Not Given Documented by: Melatonin (Melatonin 3 Mg Tab) 6 mg PO BEDTIME PRN PRN Reason: Insomnia Last Admin: 05/09/21 19:11 Dose: 6 mg Documented by: Cataplex E 0 each PO ASDIRECTED [facility] Cardio-Plus 0 each PO ASDIRECTED [facility] Immuplex 2 each PO DAILY [facility] Last Admin: 05/11/21 08:27 Dose: 2 each Documented by: Cataplex E 2 each PO ASDIRECTED [facility] Last Admin: 05/11/21 08:28 Dose: 2 each Documented by: Cardio-Plus 2 each PO ASDIRECTED [facility] Last Admin: 05/11/21 08:28 Dose: 2 each Documented by: Oxycodone HCl (Oxycodone 5 Mg Tab) 5 mg PO Q6H PRN PRN Reason: MODERATE PAIN Stop: 05/05/21 23:59 Last Admin: 05/05/21 23:31 Dose: 5 mg Documented by: Phenazopyridine HCl (Phenazopyridine 100 Mg Tab) 100 mg PO TIDMEALS [facility] Stop: 05/14/21 14:00 Last Admin: 05/14/21 11:54 Dose: 100 mg Documented by: Tuberculin PPD (Tuberculin, Ppd 5 Units/0.1 Ml 1 Ml Mdv) 5 unit IDERM ONETIME ONE Stop: 05/02/21 16:48 Last Admin: 05/02/21 18:13 Dose: 5 unit Documented by: Zolpidem Tartrate (Zolpidem 5 Mg Tab) 5 mg PO BEDTIME PRN PRN Reason: Insomnia Last Admin: 05/10/21 22:07 Dose: 5 mg Documented by: - Exam General: Alert, Cooperative HEENT: Pupils Equal, Pupils Reactive, EOMI Lungs: Clear to Auscultation, Normal Respiratory Effort Cardiovascular: Regular Rate, Regular Rhythm GI/Abdominal Exam: Normal Bowel Sounds, Soft, Non-Tender Back Exam: Normal Inspection Extremities: Normal Inspection Skin: Warm, Dry, Intact Psy/Mental Status: Alert, Normal Affect, Normal Mood Sepsis Event Note - Evaluation Sepsis Screening Result: No Definite Risk - Focused Exam Vital Signs: Vital Signs Pulse BP 05/16/21 08:33 105 H 127/75 - Problem List & Annotations (1) Fracture of neck of femur, hip SNOMED Code(s): 1964551 Code(s): S72.009A - FRACTURE OF UNSP PART OF NECK OF UNSP FEMUR, INIT Sta tus: Acute Priority: Medium Current Visit: Yes (2) Pain management SNOMED Code(s): 798576165 Code(s): R52 - PAIN, UNSPECIFIED Status: Acute Priority: High Current Visit: Yes - Problem List Review Problem List Initiated/Reviewed/Updated: Yes - Plan Plan:: Patient to be admitted for 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 Pain management as scheduled and f/u reassessment as routine. F/u Orthopedics as scheduled. 05/10/21 Continue PT/OT rehabilitation. Adjustment of sleep aids. Adjustment of bedding/mattress. No other medication changes. Pain controlled. 05/16/21 Continue PT/OT. No changes to sleeping aids at this time. Patient to resolve some concerns so she doesn't think about them all night. No medication changes. Pain under control. Continue current diet - good appetite.
[2021-05-16] MEDS: traZODone 50 MG Tab PO SCH (19:31)
[2021-05-16] MEDS: Pravastatin 40 MG Tab PO SCH (19:31)
[2021-05-17] MEDS: Ascorbic Acid 500 MG Tab PO SCH (08:04)
[2021-05-17] MEDS: Levothyroxine 150 MCG Tab PO SCH (08:05)
[2021-05-17] MEDS: Diltiazem 180 MG Cap.CD PO SCH (08:05)
[2021-05-17] MEDS: Fish Oil/Omega-3 Fatty Acids 1 Gm Cap PO SCH ×2 (08:05→20:25)
[2021-05-17] MEDS: Calcium Carbonate/Vitamin D3 1500 MG-400 Units Tab PO SCH (08:05)
[2021-05-17] MEDS: metFORMIN 1,000 MG Tab PO SCH ×2 (08:05→17:40)
[2021-05-17] MEDS: Lactobacillus Acidophilus/Lactobacillus Sporogenes (Probiotic) Tab PO SCH (08:05)
[2021-05-17] MEDS: [UNRECOGNIZED DRUG - OTHER] PO SCH ×3 (08:06→17:40)
[2021-05-17] MEDS: Aspirin 81 MG Tab.EC PO SCH (08:06)
[2021-05-17] MEDS: Metoprolol Tartrate 25 MG Tab PO SCH ×2 (08:06→20:26)
[2021-05-17] MEDS: Apixaban 5 MG Tab PO SCH ×2 (08:06→20:25)
[2021-05-17] MEDS: CARDIO-PLUS PO SCH ×3 (08:06→17:40)
[2021-05-17] MEDS: CATAPLEX E2 PO SCH ×3 (08:07→17:40)
[2021-05-17] MEDS: IMMUPLEX PO SCH ×3 (08:07→17:40)
[2021-05-17] MEDS: Pravastatin 40 MG Tab PO SCH (20:25)
[2021-05-17] MEDS: traZODone 50 MG Tab PO SCH (20:25)
[2021-05-18] MEDS: Levothyroxine 150 MCG Tab PO SCH ×2 (05:33→06:34)
[2021-05-18] MEDS: Calcium Carbonate/Vitamin D3 1500 MG-400 Units Tab PO SCH (08:42)
[2021-05-18] MEDS: Ascorbic Acid 500 MG Tab PO SCH (08:42)
[2021-05-18] MEDS: Fish Oil/Omega-3 Fatty Acids 1 Gm Cap PO SCH ×2 (08:43→20:09)
[2021-05-18] MEDS: Lactobacillus Acidophilus/Lactobacillus Sporogenes (Probiotic) Tab PO SCH (08:43)
[2021-05-18] MEDS: IMMUPLEX PO SCH ×3 (08:43→17:27)
[2021-05-18] MEDS: [UNRECOGNIZED DRUG - OTHER] PO SCH ×3 (08:43→17:27)
[2021-05-18] MEDS: Diltiazem 180 MG Cap.CD PO SCH (08:43)
[2021-05-18] MEDS: Aspirin 81 MG Tab.EC PO SCH (08:43)
[2021-05-18] MEDS: CARDIO-PLUS PO SCH ×3 (08:43→17:27)
[2021-05-18] MEDS: metFORMIN 1,000 MG Tab PO SCH ×2 (08:43→17:27)
[2021-05-18] MEDS: Apixaban 5 MG Tab PO SCH ×2 (08:43→20:08)
[2021-05-18] MEDS: CATAPLEX E2 PO SCH ×3 (08:44→17:27)
[2021-05-18] MEDS: Metoprolol Tartrate 25 MG Tab PO SCH ×2 (08:44→20:09)
[2021-05-18] MEDS: Pravastatin 40 MG Tab PO SCH (20:08)
[2021-05-18] MEDS: traZODone 50 MG Tab PO SCH (20:08)
[2021-05-18] MEDS: Acetaminophen 325 MG Tab PO PRN (20:10)
[2021-05-19] MEDS: Fish Oil/Omega-3 Fatty Acids 1 Gm Cap PO SCH ×2 (07:58→19:38)
[2021-05-19] MEDS: metFORMIN 1,000 MG Tab PO SCH ×2 (07:59→17:09)
[2021-05-19] MEDS: Calcium Carbonate/Vitamin D3 1500 MG-400 Units Tab PO SCH (07:59)
[2021-05-19] MEDS: Ascorbic Acid 500 MG Tab PO SCH (07:59)
[2021-05-19] MEDS: Levothyroxine 150 MCG Tab PO SCH (07:59)
[2021-05-19] MEDS: Metoprolol Tartrate 25 MG Tab PO SCH ×2 (08:00→19:39)
[2021-05-19] MEDS: Diltiazem 180 MG Cap.CD PO SCH (08:00)
[2021-05-19] MEDS: Aspirin 81 MG Tab.EC PO SCH (08:00)
[2021-05-19] MEDS: Apixaban 5 MG Tab PO SCH ×2 (08:01→19:38)
[2021-05-19] MEDS: [UNRECOGNIZED DRUG - OTHER] PO SCH ×3 (08:01→17:09)
[2021-05-19] MEDS: Lactobacillus Acidophilus/Lactobacillus Sporogenes (Probiotic) Tab PO SCH (08:01)
[2021-05-19] MEDS: IMMUPLEX PO SCH ×3 (08:02→17:09)
[2021-05-19] MEDS: CARDIO-PLUS PO SCH ×3 (08:02→17:09)
[2021-05-19] MEDS: CATAPLEX E2 PO SCH ×3 (08:02→17:09)
[2021-05-19] MEDS: Pravastatin 40 MG Tab PO SCH (19:38)
[2021-05-19] MEDS: traZODone 50 MG Tab PO SCH (19:39)
[2021-05-20] MEDS: Levothyroxine 150 MCG Tab PO SCH (06:47)
[2021-05-20] MEDS: Ascorbic Acid 500 MG Tab PO SCH (07:42)
[2021-05-20] MEDS: Fish Oil/Omega-3 Fatty Acids 1 Gm Cap PO SCH (07:43)
[2021-05-20] MEDS: Metoprolol Tartrate 25 MG Tab PO SCH (07:43)
[2021-05-20] MEDS: Aspirin 81 MG Tab.EC PO SCH (07:44)
[2021-05-20] MEDS: metFORMIN 1,000 MG Tab PO SCH (07:44)
[2021-05-20] MEDS: Lactobacillus Acidophilus/Lactobacillus Sporogenes (Probiotic) Tab PO SCH (07:44)
[2021-05-20] MEDS: Calcium Carbonate/Vitamin D3 1500 MG-400 Units Tab PO SCH (07:44)
[2021-05-20] MEDS: Apixaban 5 MG Tab PO SCH (07:44)
[2021-05-20] MEDS: Diltiazem 180 MG Cap.CD PO SCH (07:47)
[2021-05-20] MEDS: CARDIO-PLUS PO SCH (07:48)
[2021-05-20] MEDS: CATAPLEX E2 PO SCH (07:48)
[2021-05-20 07:49] VITALS: BP 119/69; PULSE 99
[2021-05-20] MEDS: [UNRECOGNIZED DRUG - OTHER] PO SCH (07:49)
[2021-05-20] MEDS: IMMUPLEX PO SCH (07:49)
--- NOTE | 2021-05-20 11:09 | PCM.DCSUM1 ---
Discharge Summary - Discharge Data Discharge Date: 05/20/21 (In care of Augusta Ott) Discharge Disposition: Home, Self-Care 01 Condition: Good - Referral to Home Health Primary Care Physician: Charanjit Mcdonald MD - Discharge Diagnosis/Problem(s) (1) Fracture of neck of femur, hip SNOMED Code(s): 5938099 ICD Code: S72.009A - FRACTURE OF UNSP PART OF NECK OF UNSP FEMUR, INIT Status: Acute Priority: Medium (2) Pain management SNOMED Code(s): 092286383 ICD Code: R52 - PAIN, UNSPECIFIED Status: Acute Priority: High - Patient Summary/Data Consults: Consultations 05/02/21 11:40 OT Evaluation and Treatment [CONS] Routine Please Evaluate and Treat. OT Reason for Consult: Other (Type Response) Special Instructions: Post-Op Ortho surgery This query below is only for informational purposes and is not editable. Admission Diagnosis/Problem: Rehabilitation therapy PT Evaluation and Treatment [CONS] Routine Please Evaluate and Treat. PT Reason for Consult: Post op Ortho Surgery This query below is only for informational purposes and is not editable. Admission Diagnosis/Problem: Rehabilitation therapy - Discharge Plan Prescriptions/Med Rec: Metoprolol Tartrate 25 mg PO BID #180 tablet Home Medications: Home Meds Diltiazem [Dilacor XR] 2 cap PO DAILY 01/24/21 [History] Levothyroxine 150 mcg PO ACBREAKFAST 01/24/21 [History] metFORMIN [Glucophage] 1,000 mg PO BIDMEALS 01/24/21 [History] Aspirin 81 mg PO DAILY 04/26/21 [History] Calcium Carb/D3/Mag AA Chelate [Coral Calcium Capsule] 1 each PO DAILY 04/26/21 [History] [place]-3 Fatty Acids/Fish Oil [[place]-3 Fish Oil 1,200 mg Sfgl] 1 each PO DAILY 04/26/21 [History] Vitamin E 400 unit PO DAILY 04/26/21 [History] Metoprolol Tartrate 25 mg PO BID #180 tablet 05/20/21 [Rx] Patient Handouts: Fall Prevention in the Home, Adult, [id number] - Discharge Summary/Plan Comment DC Time >30 min.: No Discharge Summary/Plan Comment: Patient discharged to care of Family and Augusta Ott. Med changes - d/c HCTZ and Rx of metoprolol sent. F/u in clinic as routine and as needed. - Patient Data Vitals - Most Recent: Last Vital Signs Temp 36.1 C 05/20/21 08:00 Pulse 99 05/20/21 08:00 Resp 18 05/20/21 08:00 BP 119/69 05/20/21 08:00 Pulse Ox 96 05/20/21 08:00 Weight - Most Recent: 62.051 kg Lab Results - Last 24 hrs: Laboratory Results - last 24 hr 05/20/21 Range/Units 07:47 POC Glucose 108 (74-110) mg/dL [facility] Results - Last 24 hrs: Microbiology 05/18/21 00:26 Urine Culture - Final Urine, Voided MIXED POSITIVE KAT DAY 2 Med Orders - Current: Current Medications Discontinued Medications Acetaminophen (Acetaminophen 325 Mg Tab) 650 mg PO Q4H PRN PRN Reason: MILD PAIN Last Admin: 05/18/21 20:10 Dose: 650 mg Documented by: Apixaban (Apixaban 5 Mg Tab) 5 mg PO BID [facility] Last Admin: 05/20/21 07:44 Dose: 5 mg Documented by: Ascorbic Acid (Ascorbic Acid 500 Mg Tab) 250 mg PO DAILY [facility] Last Admin: 05/20/21 07:42 Dose: 250 mg Documented by: Aspirin (Aspirin 81 Mg Tab.Ec) 81 mg PO DAILY [facility] Last Admin: 05/20/21 07:44 Dose: 81 mg Documented by: Calcium Carbonate (Calcium Carbonate/Vitamin D3 1500 Mg-400 Units Tab) 1 tab PO DAILY [facility] Last Admin: 05/20/21 07:44 Dose: 1 tab Documented by: Ciprofloxacin (Ciprofloxacin 500 Mg Tab) 500 mg PO BID [facility] Stop: 05/11/21 13:46 Last Admin: 05/11/21 08:26 Dose: 500 mg Documented by: Diltiazem HCl (Diltiazem 180 Mg Cap.Cd) 360 mg PO DAILY [facility] Last Admin: 05/20/21 07:47 Dose: 360 mg Documented by: Diphenhydramine HCl (Diphenhydramine 25 Mg Cap) 25 mg PO BEDTIME [facility] Last Admin: 05/09/21 19:11 Dose: 25 mg Documented by: Diphenhydramine HCl (Diphenhydramine 50 Mg Cap) 50 mg PO BEDTIME [facility] Last Admin: 05/10/21 19:41 Dose: 50 mg Documented by: Fish Oil (Fish Oil/[place]-3 Fatty Acids 1 Gm Cap) 1 gm PO BID [facility] Last Admin: 05/20/21 07:43 Dose: 1 gm Documented by: Lactobacillus Acidophilus (Lactobacillus Acidophilus/Lactobacillus Sporogenes (Probiotic) Tab) 1 tab PO DAILY [facility] Last Admin: 05/20/21 07:44 Dose: 1 tab Documented by: Levofloxacin (Levofloxacin 500 Mg Tab) 250 mg PO Q24H [facility] Stop: 05/15/21 16:01 Last Admin: 05/15/21 17:03 Dose: 250 mg Documented by: Levofloxacin (Levofloxacin 500 Mg Tab) 500 mg PO ONETIME ONE Stop: 05/11/21 16:01 Last Admin: 05/11/21 16:32 Dose: 500 mg Documented by: Levothyroxine Sodium (Levothyroxine 150 Mcg Tab) 150 mcg PO QPM [facility] Last Admin: 05/14/21 06:39 Dose: Not Given Documented by: Levothyroxine Sodium (Levothyroxine 150 Mcg Tab) 150 mcg PO DAILY@0700 [facility] Last Admin: 05/20/21 06:47 Dose: 150 mcg Documented by: Melatonin (Melatonin 3 Mg Tab) 6 mg PO BEDTIME PRN PRN Reason: Insomnia Last Admin: 05/09/21 19:11 Dose: 6 mg Documented by: Metformin HCl (Metformin 1,000 Mg Tab) 1,000 mg PO BIDMEALS [facility] Last Admin: 05/20/21 07:44 Dose: 1,000 mg Documented by: Metoprolol Tartrate (Metoprolol Tartrate 25 Mg Tab) 25 mg PO BID [facility] Last Admin: 05/20/21 07:43 Dose: 25 mg Documented by: Cataplex E 0 each PO ASDIRECTED [facility] Cardio-Plus 0 each PO ASDIRECTED [facility] Immuplex 2 each PO DAILY [facility] Last Admin: 05/11/21 08:27 Dose: 2 each Documented by: Cataplex E 2 each PO ASDIRECTED [facility] Last Admin: 05/11/21 08:28 Dose: 2 each Documented by: Cardio-Plus 2 each PO ASDIRECTED [facility] Last Admin: 05/11/21 08:28 Dose: 2 each Documented by: Immuplex 1 each PO TIDMEALS [facility] Last Admin: 05/20/21 07:49 Dose: 1 each Documented by: Cataplex E2 1 each PO TIDMEALS [facility] Last Admin: 05/20/21 07:48 Dose: 1 each Documented by: Cardio-Plus 1 each PO TIDMEALS [facility] Last Admin: 05/20/21 07:48 Dose: 1 each Documented by: Martina Segura 1 each PO TIDMEALS [facility] Last Admin: 05/20/21 07:49 Dose: 1 each Documented by: Oxycodone HCl (Oxycodone 5 Mg Tab) 5 mg PO Q6H PRN PRN Reason: MODERATE PAIN Stop: 05/05/21 23:59 Last Admin: 05/05/21 23:31 Dose: 5 mg Documented by: Phenazopyridine HCl (Phenazopyridine 100 Mg Tab) 100 mg PO TIDMEALS [facility] Stop: 05/14/21 14:00 Last Admin: 05/14/21 11:54 Dose: 100 mg Documented by: Pravastatin Sodium (Pravastatin 40 Mg Tab) 40 mg PO BEDTIME [facility] Last Admin: 05/19/21 19:38 Dose: 40 mg Documented by: Trazodone HCl (Trazodone 50 Mg Tab) 25 mg PO BEDTIME [facility] Last Admin: 05/19/21 19:39 Dose: 25 mg Documented by: Tuberculin PPD (Tuberculin, Ppd 5 Units/0.1 Ml 1 Ml Mdv) 5 unit IDERM ONETIME ONE Stop: 05/02/21 16:48 Last Admin: 05/02/21 18:13 Dose: 5 unit Documented by: Zolpidem Tartrate (Zolpidem 5 Mg Tab) 5 mg PO BEDTIME PRN PRN Reason: Insomnia Last Admin: 05/10/21 22:07 Dose: 5 mg Documented by:
== END 2021-05-20 10:00 | disposition home or self-care (01) | DRG 561 ==
LOC: UNDOADMIN 13:15 → LB.MS 13:15
PROVIDERS: ADMIT Family Medicine; ATTEND Family Medicine
DX: S72.009D Fracture of unspecified part of neck of unspecified femur, subsequent encounter for closed fracture with routine healing (principal); H54.7 Unspecified visual loss; E78.00 Pure hypercholesterolemia, unspecified; I10 Essential (primary) hypertension; R32 Unspecified urinary incontinence; E11.9 Type 2 diabetes mellitus without complications; E03.9 Hypothyroidism, unspecified; Z20.822 Contact with and (suspected) exposure to COVID-19; Z88.2 Allergy status to sulfonamides; Z88.8 Allergy status to other drugs, medicaments and biological substances; Z79.82 Long term (current) use of aspirin; Z79.84 Long term (current) use of oral hypoglycemic drugs; Z79.890 Hormone replacement therapy; Z90.710 Acquired absence of both cervix and uterus; Z98.49 Cataract extraction status, unspecified eye; Z94.9 Transplanted organ and tissue status, unspecified
CPT/HCPCS: 73502-RT; 81001; 81003; 82947; 86580; 87086; 97110-GP; 97116-GP; 97161-GP; 97165-GO; 97530-GO; 97530-GP; 97535-GO; A9270-GY; U0002